=== PATIENT | female | born 1965 | race Caucasian/White ===

== ENCOUNTER 2017-04-06 14:37 | Emergency (ER) | payer SELFPAY ==
[~2017-04-06 14:37] MED LIST: ADVA100A INH; VENTAER INH
[2017-04-06 14:39] VITALS: BP 146/98; PULSE 86; RESP 15; TEMP 98.5; O2SAT 98
--- NOTE | 2017-04-06 14:55 | PD ---
HPI . Cold for over a week Chief Complaint: Cold / Flu Symptoms Time Seen by Provider: 14:55 Travel History International Travel<30 days: No Contact w/Intl Traveler<30days: No Traveled to known affect area: No History of Present Illness HPI 51-year-old female here with complaints of having a cold for over one week. She 's tried all of the [id number] remedies including Mucinex and they seem to not be working. She does report that she may have emphysema. She tells me she had a slight fever of 100 yesterday, however has been afebrile since. PFSH Past Medical History : 4 Para: 3 Miscarriage: 1 Past Surgical History Section: Yes Cholecystectomy: Yes Gynecologic Surgery: Yes (; TUBAL LIGATION,D&C) Social History Alcohol Use: Yes (OCC) Tobacco Use: Yes (1/2PPD) Substance Use: No Allergies-Medications (Allergen,Severity, Reaction): Coded Allergies: No Known Allergies (Verified , 06/27/11) Reported Meds & Prescriptions Reported Meds & Active Scripts Active Tessalon Perles (Benzonatate) 100 Mg Cap 100 Mg PO TID PRN 3 Days Zithromax Z-Gera (Azithromycin) 250 Mg Dspk 250 Mg PO DIRECTED 500 MG (2 tabs) day 1, then 1 tab days 2-5. Prednisone 50 Mg Tab 50 Mg PO DAILY 5 Days Ventolin Hfa 18 GM Inh (Albuterol Sulfate) 90 Mcg/Act Aer 2 Puff INH Q6H PRN Ventolin Hfa (Albuterol Sulfate) 18 Gm Aero 2 Puff INH Q4HPRN 30 Days * SHAKE WELL BEFORE USE * as needed for shortness of breath Reported Advair Diskus 100/50 (Salmeterol Xinafoate/Fluticasone) 100 Mcg/50 Mcg Inhp 1 Puff INH BID Review of Systems General / Constitutional: No: Fever Eyes: No: Visual changes HENT: No: Headaches Cardiovascular: No: Chest Pain or Discomfort Respiratory: Positive: Cough, Wheezing, No: Shortness of Breath Gastrointestinal: No: Abdominal Pain Genitourinary: No: Dysuria Musculoskeletal: No: Pain Skin: No Rash Neurologic: No: Weakness Psychiatric: No: Depression Endocrine: No: Polydipsia Hematologic/Lymphatic: No: Easy Bruising Physical Exam Narrative GENERAL: AAO x 3, no acute distress, Well-nourished, well-developed patient. SKIN: Warm and dry. No visible rashes or bruising. HEAD: Normocephalic and atraumatic. EYES: No scleral icterus. No injection or drainage. ENT: No nasal drainage noted. Mucous membranes pink. Airway patent. NECK: Supple, trachea midline. No JVD. CARDIOVASCULAR: Regular rate and rhythm without murmurs, gallops, or rubs. RESPIRATORY: Breath sounds equal bilaterally. rhonchi scattered/slight wheeze GASTROINTESTINAL: Abdomen soft, non-tender, nondistended. EXTREMITIES: No cyanosis or edema. BACK: No obvious deformity. NEURO: CN II-12 intact, PSYCH: AAO x 3, normal affect. Data Data Last Documented VS Vital Signs Date Time Temp Pulse Resp B/P (MAP) Pulse Ox O2 Delivery O2 Flow Rate FiO2 04/06/17 15:04 16 98 Room Air 04/06/17 14:39 98.5 86 146/98 (114) Orders Orders Chest, Single Ap (04/06/17 ) Albuterol-Ipratropium Neb (Duoneb Neb) (04/06/17 15:00) MDM Medical Decision Making Medical Screen Exam Complete: Yes Emergency Medical Condition: Yes Medical Record Reviewed: Yes Differential Diagnosis bronchitis, less likely pneumonia, less likely influenza Narrative Course 51 yr old female here with cold sxs x 2 weeks. Exam done. I believe she has bronchitis. I ordered CXR, but do not expect any gross abn. Last Impressions Chest X-Ray 04/06/17 0000 Signed Impressions: Service Date/Time: Thursday, April 06, 2017 15:20 - CONCLUSION: No acute disease. Yg Villalta MD FACR Chest x-ray unremarkable. I discussed with the patient. I will discharge her home with azithromycin, prednisone, albuterol inhaler and Tessalon Perles. I explained that she will need to follow-up with the primary care provider. Patient verbalized understanding of instructions, questions were answered, and thanked me for their care. I advised them if their condition worsens, please return to the nearest emergency room for further care. Diagnosis Primary Impression: Acute bronchitis Qualified Codes: J20.9 - Acute bronchitis, unspecified Patient Instructions: General Instructions Additional Instructions: As we discussed the cough can last 6-8 weeks. Take medications as prescribed. If you are a smoker, try to quit. Follow up with your primary care provider. If you develop sudden onset or worsening of shortness or breath, please go to the nearest emergency room. Please return to emergency department if your symptoms return or worsen. Follow up with your primary care provider. Take medications as prescribed. Med/Other Pt SpecificInfo: Prescription(s) given Scripts Benzonatate (Tessalon Perles) 100 Mg Cap 100 MG PO TID Y for COUGH for 3 Days, CAP 0 Refills Prov: Jose Washburn MD 04/06/17 Azithromycin (Zithromax Z-Gera) 250 Mg Dspk 250 MG PO DIRECTED for Infection, #1 DSPK 0 Refills 500 MG (2 tabs) day 1, then 1 tab days 2-5. Prov: Jose Washburn MD 04/06/17 Prednisone (Prednisone) 50 Mg Tab 50 MG PO DAILY for 5 Days, TAB 0 Refills Prov: Jose Washburn MD 04/06/17 Albuterol 18 GM Inh (Ventolin Hfa 18 GM Inh) 90 Mcg/Act Aer 2 PUFF INH Q6H Y for SHORTNESS OF BREATH, #1 INHALER 0 Refills Prov: Jose Washburn MD 04/06/17 Disposition: 01 DISCHARGE HOME Condition: Stable Eden Perez Apr 06, 2017 14:55
[2017-04-06] MEDS ORDERED: RESP: ALBUTEROL 2.5 MG/IPRATROPIUM 0.5 MG NEB (SCH) INH ONE (15:00)
--- NOTE | 2017-04-06 15:33 | RADRPT ---
EXAM DATE/TIME: 04/06/2017 15:20 [facility] COMPARISON: No previous studies available for comparison. INDICATIONS : Cough for one week. MEDICAL HISTORY : None. SURGICAL HISTORY : None. ENCOUNTER: Initial ACUITY: 1 week PAIN SCORE: 0/10 LOCATION: Bilateral chest FINDINGS: A single view of the chest demonstrates the lungs to be symmetrically aerated without evidence of mas s, infiltrate or effusion. The cardiomediastinal contours are unremarkable. Osseous structures are intact. CONCLUSION: No acute disease. Yg Villalta MD FACR on April 06, 2017 at 15:31 Board Certified Radiologist. This report was verified electronically.
[2017-04-06] MEDS ORDERED: VENTAER INH (15:50)
[2017-04-06] MEDS ORDERED: PRED50 PO (15:50)
[2017-04-06] MEDS ORDERED: BENZ100 PO (15:50)
[2017-04-06] MEDS ORDERED: ZITHTAB PO (15:50)
== END 2017-04-06 16:00 | disposition home or self-care (01) ==
LOC: NEPD 14:37
DX: J20.9 Acute bronchitis, unspecified (principal); F17.200 Nicotine dependence, unspecified, uncomplicated
CPT/HCPCS: 71010; 99284

== ENCOUNTER 2017-07-24 18:51 | Observation (INO) | payer SELFPAY ==
[~2017-07-24] VITALS: Ht 170.2 cm; Wt 52.3 kg
[~2017-07-24 18:51] MED LIST changes: +BENZ100 PO; +PRED50 PO; +ZITHTAB PO
[2017-07-24 18:54] VITALS: BP 177/115; PULSE 89; RESP 16; TEMP 98.7; O2SAT 95
[2017-07-24] MEDS ORDERED: TIOT12.9 INH (19:33)
[2017-07-24] MEDS ORDERED: TIOT1AER2 INH (19:33)
[2017-07-24] MEDS ORDERED: PRED5TAB PO (19:34)
[2017-07-24 19:35] VITALS: PULSE 65; RESP 18; TEMP 98.6; O2SAT 94
[2017-07-24] MEDS ORDERED: SODIUM CHLORIDE 0.9% FLUSH 10 ML FLUSH IV FLUSH PRN ×2 (19:45→23:00)
[2017-07-24 20:03] VITALS: O2SAT 95
[2017-07-24 20:11] LABS: AUTOMATED NEUTROPHIL # 4.2 TH/MM3 (1.8-7.7); BASOPHIL % 0.6 % (0.0-2.0); EOSINOPHIL # 0.2 TH/MM3 (0-0.4); EOSINOPHIL % 2.2 % (0.0-4.0); HEMATOCRIT 48.3 % (35.0-46.0); HEMOGLOBIN 16.4 GM/DL (11.6-15.3); LYMPH % 34.9 % (9.0-44.0); LYMPHOCYTE # 2.6 TH/MM3 (1.0-4.8); MEAN CELL VOLUME 90.2 FL (80.0-100.0); MEAN CORPUSCULAR HEMOGLOBIN 30.7 PG (27.0-34.0); MEAN PLATELET VOLUME 7.8 FL (7.0-11.0); MONO % 6.5 % (0.0-8.0); MONOCYTE # 0.5 TH/MM3 (0-0.9); NEUT % 55.8 % (16.0-70.0); PLATELET COUNT 226 TH/MM3 (150-450); RED BLOOD COUNT 5.36 MIL/MM3 (4.00-5.30); RED CELL DISTRIBUTION WIDTH 13.8 % (11.6-17.2); WHITE BLOOD COUNT 7.6 TH/MM3 (4.0-11.0)
[2017-07-24 20:15] LABS: BACTERIA, URINE RARE /hpf; BILIRUBIN, URINE NEG (NEG); BLOOD, URINE NEG (NEG); GLUCOSE,URINE NEG (NEG); HYALINE CAST, URINE 52 /lpf (RARE); KETONE, URINE NEG (NEG); MUCUS URINE FEW /lpf (OCC); NITRITE,URINE NEG (NEG); PH, URINE 5.5 (5.0-8.5); SQUAMOUS EPITHELIAL CELL URINE 8 /hpf (0-5); URINE COLOR YELLOW (YELLW/STRAW); URINE LEUKOCYTE ESTERASE SMALL (NEG)
[2017-07-24 20:31] LABS: ALBUMIN 3.9 GM/DL (3.4-5.0); AST (GOT) 15 U/L (15-37); BICARBONATE 29.5 MEQ/L (21.0-32.0); BLOOD UREA NITROGEN 9 MG/DL (7-18); CHLORIDE 102 MEQ/L (98-107); CREATININE 0.76 MG/DL (0.50-1.00); GLOMERULAR FILTRATION RATE 80 ML/MIN (>89); GLUCOSE,RANDOM 96 MG/DL (74-106); LIPASE 84 U/L (73-393); SODIUM (NA) 137 MEQ/L (136-145)
[2017-07-24 20:32] LABS: ALT (GPT) 19 U/L (10-53)
[2017-07-24 20:34] LABS: ALKALINE PHOSPHATASE 81 U/L (45-117); TOTAL BILIRUBIN ADULT 0.3 MG/DL (0.2-1.0); TOTAL PROTEIN 7.5 GM/DL (6.4-8.2)
--- NOTE | 2017-07-24 21:35 | PD ---
HPI Chief Complaint: GI Complaint Time Seen by Provider: 19:20 Travel History International Travel<30 days: No Contact w/Intl Traveler<30days: No Traveled to known affect area: No History of Present Illness HPI 52-year-old female presents emergency department for evaluation of dysphagia 2 days. Patient states she feels like there is something stuck in the lower portion of her throat that is preventing her from eating and swallowing food. Denies any difficulty breathing. Patient states the swelling in her throat is making her nauseous and she has vomited scant amount of bilious fluid a couple times. Patient denies any alleviating or exacerbating factors. Patient denies any abdominal pain. Patient states she feels dizzy and lightheaded from not being able to eat. Patient is currently half pack a day smoker. She has a history of emphysema. She takes prednisone daily. She denies any fever, chills , increased shortness of breath outside of her baseline or chest pain. Patient denies any dysuria or hematuria. PFSH Past Medical History COPD: Yes Respiratory: Yes (emphysema) ?: Not LMP: doesnt get anymore Menopausal: Yes : 4 Para: 3 Miscarriage: 1 Past Surgical History Section: Yes Cholecystectomy: Yes Gynecologic Surgery: Yes (; TUBAL LIGATION,D&C, ovarian cyst removed) Social History Alcohol Use: Yes (OCC) Tobacco Use: Yes (/4ppd) Substance Use: No Allergies-Medications (Allergen,Severity, Reaction): Coded Allergies: No Known Allergies (Verified Adverse Reaction, Unknown, 07/24/17) Reported Meds & Prescriptions Reported Meds & Active Scripts Active Reported Prednisone 5 Mg Tab 5 Mg PO DAILY Spiriva Respimat Inh (Tiotropium Inh) 1.25 Mcg/Act Aero 2 Puff INH DAILY 1.25 mcg = 1 inhalation Review of Systems Except as stated in HPI: all other systems reviewed are Neg Physical Exam Narrative GENERAL: Well-nourished, well-developed 52-year-old female in no acute distress. Nontoxic appearing. SKIN: Focused skin assessment warm/dry. HEAD: Atraumatic. Normocephalic. EYES: Pupils equal and round. No scleral icterus. No injection or drainage. ENT: No nasal bleeding or discharge. Mucous membranes pink and moist. No obvious throat or neck swelling. NECK: Trachea midline. No JVD. CARDIOVASCULAR: Regular rate and rhythm. No murmur appreciated. RESPIRATORY: No accessory muscle use. Clear to auscultation. Breath sounds equal bilaterally. GASTROINTESTINAL: Abdomen soft, non-tender, nondistended. Hepatic and splenic margins not palpable. MUSCULOSKELETAL: No obvious deformities. No clubbing. No cyanosis. No edema. NEUROLOGICAL: Awake and alert. No obvious cranial nerve deficits. Motor grossly within normal limits. Normal speech. PSYCHIATRIC: Appropriate mood and affect; insight and judgment normal. Data Data Last Documented VS Vital Signs Date Time Temp Pulse Resp B/P (MAP) Pulse Ox O2 Delivery O2 Flow Rate FiO2 07/24/17 20:03 95 Room Air 07/24/17 19:35 98.6 65 18 Orders Orders Complete Blood Count With Diff (07/24/17 19:39) Comprehensive Metabolic Panel (07/24/17 19:39) Lipase (07/24/17 19:39) Urinalysis - C+S If Indicated (07/24/17 19:39) Iv Access Insert/Monitor (07/24/17 19:39) Ecg Monitoring (07/24/17 19:39) Oximetry (07/24/17 19:39) Sodium Chloride 0.9% Flush (Ns Flush) (07/24/17 19:45) Electrocardiogram (07/24/17 19:39) Ct Soft Tiss Neck W/O Iv Cont (07/24/17 ) Ckmb (Isoenzyme) Profile (07/24/17 21:16) Troponin I (07/24/17 21:16) Admit Order (Ed Use Only) (07/24/17 22:56) Consult Ent (07/24/17 ) Labs Laboratory Tests Test 07/24/17 19:55 White Blood Count 7.6 TH/MM3 Red Blood Count 5.36 MIL/MM3 Hemoglobin 16.4 GM/DL Hematocrit 48.3 % Mean Corpuscular Volume 90.2 FL Mean Corpuscular Hemoglobin 30.7 PG Mean Corpuscular Hemoglobin Concent 34.0 % Red Cell Distribution Width 13.8 % Platelet Count 226 TH/MM3 Mean Platelet Volume 7.8 FL Neutrophils (%) (Auto) 55.8 % Lymphocytes (%) (Auto) 34.9 % Monocytes (%) (Auto) 6.5 % Eosinophils (%) (Auto) 2.2 % Basophils (%) (Auto) 0.6 % Neutrophils # (Auto) 4.2 TH/MM3 Lymphocytes # (Auto) 2.6 TH/MM3 Monocytes # (Auto) 0.5 TH/MM3 Eosinophils # (Auto) 0.2 TH/MM3 Basophils # (Auto) 0.0 TH/MM3 CBC Comment DIFF FINAL Differential Comment Urine Color YELLOW Urine Turbidity HAZY Urine pH 5.5 Urine Specific Burns 1.020 Urine Protein TRACE mg/dL Urine Glucose (UA) NEG mg/dL Urine Ketones NEG mg/dL Urine Occult Blood NEG Urine Nitrite NEG Urine Bilirubin NEG Urine Urobilinogen 2.0 MG/DL Urine Leukocyte Esterase SMALL Urine RBC 1 /hpf Urine WBC 5 /hpf Urine Squamous Epithelial Cells 8 /hpf Urine Bacteria RARE /hpf Urine Hyaline Casts 52 /lpf Urine Granular Casts 13 /lpf Urine Mucus FEW /lpf Microscopic Urinalysis Comment CULT NOT INDICATED Blood Urea Nitrogen 9 MG/DL Creatinine 0.76 MG/DL Random Glucose 96 MG/DL Total Protein 7.5 GM/DL Albumin 3.9 GM/DL Calcium Level 9.0 MG/DL Alkaline Phosphatase 81 U/L Aspartate Amino Transf (AST/SGOT) 15 U/L Alanine Aminotransferase (ALT/SGPT) 19 U/L Total Bilirubin 0.3 MG/DL Sodium Level 137 MEQ/L Potassium Level 3.8 MEQ/L Chloride Level 102 MEQ/L Carbon Dioxide Level 29.5 MEQ/L Anion Gap 6 MEQ/L Estimat Glomerular Filtration Rate 80 ML/MIN Total Creatine Kinase 79 U/L Troponin I LESS THAN 0.02 NG/ML Lipase 84 U/L MDM Medical Decision Making Medical Screen Exam Complete: Yes Emergency Medical Condition: Yes Differential Diagnosis Differential diagnoses include but not limited to foreign body in throat, mass/ malignancy in throat, nausea/vomiting, swollen glands, throat abscess Narrative Course IV obtained and blood work sent to the lab. CBC, CMP, lipase, troponin, CK-MB, UA ordered and pending. EKG ordered and pending. CT soft tissue neck ordered and pending. CBC showed mildly increased H&H with HBG 16.4 and HCT 48.3. CMP shows no acute abnormality. Trop negative at less than 0.02 and CK within normal limits at 79. UA shows no acute abnormality. Neck CT shows 12 mm hypodensity in the soft tissue adjacent to the left piriform sinus without evidence of mass effect or gas. Cannot exclude an abscess. Dr. Zuñiga, ENT on- call consult regarding this case. He recommends admitting the patient and consulting him to perform a biopsy and evaluation of the possible abscess tomorrow. Aleisha called for admission. Dr. Deleon accepted admission. Patient admitted the hospital this time. Diagnosis Primary Impression: Dysphagia Qualified Codes: R13.10 - Dysphagia, unspecified Admitting Information Admitting Physician Requests: Nuha Elder Jul 24, 2017 21:35
[2017-07-24 21:40] LABS: TROPONIN I LESS THAN 0.02 NG/ML (0.02-0.05)
--- NOTE | 2017-07-24 21:43 | RADRPT ---
EXAM DATE/TIME: 07/24/2017 21:12 [facility] COMPARISON: No previous studies available for comparison. INDICATIONS : Dysphagia. RADIATION DOSE: 16.97 CTDIvol (mGy) MEDICAL HISTORY : Chronic obstructive pulmonary disease. SURGICAL HISTORY : Tubal ligation. ENCOUNTER: Initial ACUITY: 1 week PAIN SCORE: 0/10 LOCATION: neck TECHNIQUE: Volumetric scanning of the neck was performed. Using automated exposure control and adjustment of th e mA and/or kV according to patient size, radiation dose was kept as low as reasonably achievable to obtain optimal diagnostic quality images. DICOM format image data is available electronically for re view and comparison. FINDINGS: There was extravasation of the administered contrast and this study was performed without contrast. Prevertebral soft tissue space is normal. The submandibular and parotid glands are symmetric and nor mal in size. There is a 12 mm hypodensity adjacent to the left piriform sinus which does not cause a contour asymmetry of the piriform sinus. Mean CT density is 3 Hounsfield units suggesting this coul d possibly represent an abscess. The thyroid is normal in appearance the supraclavicular region is i ntact. The osseous structures are intact. There is moderate centrilobular emphysema in the pulmonar y apices. CONCLUSION: 1. 12 mm hypodensity in the soft tissues adjacent to the left piriform sinus without evidence of mass effect or gas. Cannot exclude an abscess. 2. Moderate bilateral upper lung emphysema. Ibrahima Callahan MD on July 24, 2017 at 21:36 Board Certified Radiologist. This report was verified electronically.
[2017-07-24] MEDS ORDERED: LACTULOSE SYRUP 20 GM/30 ML CUP PO PRN (23:00)
[2017-07-24] MEDS ORDERED: SENNOSIDES 8.6 MG TAB PO PRN (23:00)
[2017-07-24] MEDS ORDERED: MAGNESIUM HYDROXIDE SUSP 30 ML CUP PO PRN (23:00)
[2017-07-24] MEDS ORDERED: BISACODYL 10 MG SUPP RECTAL PRN (23:00)
[2017-07-24] MEDS ORDERED: ACETAMINOPHEN 1000 MG/100 ML 100 ML IV PRN (23:00)
--- NOTE | 2017-07-24 23:01 | HHI.HP ---
HPI Service [facility] Hospitalists Primary Care Physician Jan Stinson M.D. Admission Diagnosis dysphagia, possible throat abscess Diagnoses: (1) Dysphagia Diagnosis: Principal (2) Neck mass Diagnosis: Principal (3) Dehydration Diagnosis: Principal (4) HTN (hypertension) Diagnosis: Principal (5) Tobacco abuse Diagnosis: Principal Travel History International Travel<30 Days: No Contact w/Intl Traveler <30 Da: No Traveled to Known Affected Are: No History of Present Illness This is a 52-year-old female with a PMH of COPD and Tobacco Abuse presented to the ER with complaints of dysphagia x2 days. States every time she swallows, she feels something "stuck in my throat". Reports dysphagia for both liquids and solids, decreased PO intake due to symptoms. No c/o fever, chills, sore throat or sick contacts. No h/o similar symptoms. On arrival, BP 177/115, HR 89, O2 sat 95% on RA, Afebrile. CBC essentially unremarkable except for hemoconcentration, hemoglobin 16.4. Chemistry essentially unremarkable. Troponin negative. UA negative. CT Neck with 12 mm hypodensity in soft tissue adjacent to left piriform sinus, cannot exclude abscess or mass. Dr. Robert consulted by ER physician, will evaluate in a.m. Review of Systems Except as stated in HPI: all other systems reviewed are Neg ROS: 14 point review of systems otherwise negative. Past Family Social History Past Medical History PMH: COPD and Tobacco Abuse Past Surgical History PAST SURGICAL HISTORY: Cholecystectomy, , Tubal Ligation, D&C Allergies: Coded Allergies: No Known Allergies (Verified Allergy, Unknown, 07/24/17) Family History PAST FAMILY HISTORY: Reviewed. No h/o DM or CAD Social History PAST SOCIAL HISTORY: Occasional alcohol. Positive for tobacco. Negative for drugs. Physical Exam Vital Signs Vital Signs Date Time Temp Pulse Resp B/P (MAP) Pulse Ox O2 Delivery O2 Flow Rate FiO2 07/24/17 20:03 95 Room Air 07/24/17 19:35 98.6 65 18 94 Room Air 07/24/17 18:54 98.7 89 16 177/115 (135) 95 Room Air Physical Exam PE: GENERAL: Middle-aged white female in no acute distress. HEENT: PERRLA, EOMI. No scleral icterus or conjunctival pallor. No lid lag or facial droop. No palpable neck mass. CARDIOVASCULAR: Regular rate and rhythm. No obvious murmurs to auscultation. No chest tenderness to palpation. RESPIRATORY: No obvious rhonchi or wheezing. Clear to auscultation. Breath sounds equal bilaterally. GASTROINTESTINAL: Abdomen soft, non-tender, nondistended. BS normal. MUSCULOSKELETAL: Extremities without clubbing, cyanosis, or edema. No obvious deformities. NEUROLOGICAL: Awake, alert and oriented x4. No focal neurologic deficits. Moving both upper and lower extremities spontaneously. Laboratory Laboratory Tests Test 07/24/17 19:55 White Blood Count 7.6 Red Blood Count 5.36 Hemoglobin 16.4 Hematocrit 48.3 Mean Corpuscular Volume 90.2 Mean Corpuscular Hemoglobin 30.7 Mean Corpuscular Hemoglobin Concent 34.0 Red Cell Distribution Width 13.8 Platelet Count 226 Mean Platelet Volume 7.8 Neutrophils (%) (Auto) 55.8 Lymphocytes (%) (Auto) 34.9 Monocytes (%) (Auto) 6.5 Eosinophils (%) (Auto) 2.2 Basophils (%) (Auto) 0.6 Neutrophils # (Auto) 4.2 Lymphocytes # (Auto) 2.6 Monocytes # (Auto) 0.5 Eosinophils # (Auto) 0.2 Basophils # (Auto) 0.0 CBC Comment DIFF FINAL Differential Comment Urine Color YELLOW Urine Turbidity HAZY Urine pH 5.5 Urine Specific [place] 1.020 Urine Protein TRACE Urine Glucose (UA) NEG Urine Ketones NEG Urine Occult Blood NEG Urine Nitrite NEG Urine Bilirubin NEG Urine Urobilinogen 2.0 Urine Leukocyte Esterase SMALL Urine RBC 1 Urine WBC 5 Urine Squamous Epithelial Cells 8 Urine Bacteria RARE Urine Hyaline Casts 52 Urine Granular Casts 13 Urine Mucus FEW Microscopic Urinalysis Comment CULT NOT INDICATED Blood Urea Nitrogen 9 Creatinine 0.76 Random Glucose 96 Total Protein 7.5 Albumin 3.9 Calcium Level 9.0 Alkaline Phosphatase 81 Aspartate Amino Transf (AST/SGOT) 15 Alanine Aminotransferase (ALT/SGPT) 19 Total Bilirubin 0.3 Sodium Level 137 Potassium Level 3.8 Chloride Level 102 Carbon Dioxide Level 29.5 Anion Gap 6 Estimat Glomerular Filtration Rate 80 Total Creatine Kinase 79 Troponin I LESS THAN 0.02 Lipase 84 Result Diagram: 07/24/17195407/24/171954 Caprini VTE Risk Assessment Caprini VTE Risk Assessment: No/Low Risk (score <= 1) Caprini Risk Assessment Model Point Value = 1 Point Value = 2 Point Value = 3 Point Value = 5 Age 41-60 Minor surgery BMI > 25 kg/m2 Swollen legs Varicose veins or History of unexplained or recurrent spontaneous Oral contraceptives or hormone replacement Sepsis (< 1 month) Serious lung disease, including pneumonia (< 1 month) Abnormal pulmonary function Acute myocardial infarction Congestive heart failure (< 1 month) History of inflammatory bowel disease Medical patient at bed rest Age 61-74 Arthroscopic surgery Major open surgery (> 45 min) Laparoscopic surgery (> 45 min) Malignancy Confined to bed (> 72 hours) Immobilizing plaster cast Central venous access Age >= 75 History of VTE Family history of VTE Factor V Leiden Prothrombin [id number] Lupus anticoagulant Anticardiolipin antibodies Elevated serum homocysteine Heparin-induced thrombocytopenia Other congenital or acquired thrombophilia Stroke (< 1 month) Elective arthroplasty Hip, pelvis, or leg fracture Acute spinal cord injury (< 1 month) Prophylaxis Regimen Total Risk Factor Score Risk Level Prophylaxis Regimen 0-1 Low Early ambulation 2 Moderate Order ONE of the following: *Sequential Compression Device (SCD) *Heparin 5000 units SQ BID 3-4 Higher Order ONE of the following medications: *Heparin 5000 units SQ TID *Enoxaparin/Lovenox 40 mg SQ daily (WT < 150 kg, CrCl > 30 mL/min) *Enoxaparin/Lovenox 30 mg SQ daily (WT < 150 kg, CrCl > 10-29 mL/min) *Enoxaparin/Lovenox 30 mg SQ BID (WT < 150 kg, CrCl > 30 mL/min) AND/OR *Sequential Compression Device (SCD) 5 or more Highest Order ONE of the following medications: *Heparin 5000 units SQ TID (Preferred with Epidurals) *Enoxaparin/Lovenox 40 mg SQ daily (WT < 150 kg, CrCl > 30 mL/min) *Enoxaparin/Lovenox 30 mg SQ daily (WT < 150 kg, CrCl > 10-29 mL/min) *Enoxaparin/Lovenox 30 mg SQ BID (WT < 150 kg, CrCl > 30 mL/min) AND *Sequential Compression Device (SCD) Assessment and Plan Problem List: (1) Dysphagia ICD Code: R13.10 - Dysphagia, unspecified Status: Acute (2) Neck mass ICD Code: R22.1 - Localized swelling, mass and lump, neck (3) Dehydration ICD Code: E86.0 - Dehydration (4) HTN (hypertension) ICD Code: I10 - Essential (primary) hypertension (5) Tobacco abuse ICD Code: Z72.0 - Tobacco use Assessment and Plan A/P: 1. Dysphagia: acute onset of dysphagia to liquids/solids x2 days, denies h/o similar symptoms, no fever/chills, no sore throat. NPO, IVF, analgesics as needed. 2. Neck Mass: CT Neck w/ 12mm hypodensity left piriform sinus, unable to exclude abscess/mass, images reviewed by me. Dr. Robert consulted by ER physician, will evaluate, likely biopsy, concern for malignancy. Hold antibiotics as afebrile, no leukocytosis, no evidence of infection. 3. Dehydration: GFR 80. IVF for hydration, repeat labs in am. 4. HTN: BP 170s on arrival, likely compounded by dysphagia/discomfort. BP currently 130/78, HR 62. Monitor BP. 5. Tobacco Abuse: Patient counseled. NicoDerm prn if needed. 6. DVT Prophylaxis: SCD/teds. 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 8. Case discussed at length with ER physician. Problem Qualifiers (1) Dysphagia: Qualified Codes: R13.10 - Dysphagia, unspecified Jada Deleon MD Jul 24, 2017 23:01
--- NOTE | 2017-07-24 23:19 | EKG ---
Date Performed: 07/24/2017 Time Performed: 20:29:49 PTAGE: 52 years EKG: SINUS BRADYCARDIA SEPTAL MYOCARDIAL INFARCTION BASELINE ARTIFACT ABNORMAL ECG NO PREVIOUS TRACING DOCTOR: Aristeo Velasquez Interpretating Date/Time 07/24/2017 23:18:49
[2017-07-24] MEDS ORDERED: MORPHINE SULFATE 2 MG/ML INJ IV PUSH PRN (23:30)
[2017-07-25] MEDS: SODIUM CHLOR 0.9% 1000 ML INJ 1,000 ML IV SCH ×3 (00:14→19:00)
[2017-07-25] MEDS: ONDANSETRON HCL 4 MG/2 ML VIAL IVP PRN ×3 (00:23→18:33)
[2017-07-25] MEDS: MORPHINE SULFATE 2 MG/ML INJ IV PUSH PRN ×4 (00:24→20:03)
[2017-07-25 00:50] VITALS: BP 130/78; PULSE 62; RESP 16; TEMP 97.7; O2SAT 91
[2017-07-25 04:36] VITALS: BP 110/69; PULSE 60; RESP 16; TEMP 97.8; O2SAT 93
[2017-07-25] MEDS ORDERED: DEXAMETHASONE SOD PHOS 20 MG/5 ML VIAL IV SCH (07:00)
[2017-07-25] MEDS: AMPICILLIN/SULBAC 3 GM/NS 100 ML IV SCH ×6 (08:00→23:44)
[2017-07-25 08:19] VITALS: BP 106/67; PULSE 66; RESP 18; TEMP 97.9; O2SAT 96
[2017-07-25] MEDS: DOCUSATE SODIUM 50 MG/SENNA 8.6 MG TAB PO SCH ×2 (08:39→21:00)
[2017-07-25] MEDS: SODIUM CHLORIDE 0.9% FLUSH 10 ML FLUSH IV FLUSH SCH ×2 (08:39→21:00)
--- NOTE | 2017-07-25 10:35 | RADRPT ---
EXAM DATE/TIME: 07/25/2017 10:13 [facility] COMPARISON: CT SOFT TISSUE NECK W/O CONTRAST, July 24, 2017, 21:12. INDICATIONS : Difficulty swallowing and vomiting. FLUORO TIME: 1.7 minutes IMAGE COUNT: 10 CONTRAST: 1. Liquid E-Z Paque Barium Sulfate (60% w/v, 41% w.w) MEDICAL HISTORY : Emphysema. SURGICAL HISTORY : None. ENCOUNTER: Initial ACUITY: 4 - 6 days PAIN SCORE: 7/10 LOCATION: Esophagus FINDINGS: \Multiple serial films of the cervical esophagus were obtained to evaluate the finding in the left to nsillar pillar performed sinus. This is not visualized by barium swallow. Distal esophagus appears normal. Direct visualization suggested. CONCLUSION: Negative barium swallow. Please see above discussion. Yg Villalta MD FACR on July 25, 2017 at 10:31 Board Certified Radiologist. This report was verified electronically.
--- NOTE | 2017-07-25 11:57 | HHI.PR ---
Subjective Remarks Follow-up on patient with dysphagia. Patient seen and examined. She denies any new medical complaints. She denies any fever, chills or sore throat. She denies any chest pain or shortness of breath. She denies any nausea, vomiting or abdominal pain. She's had an 11 pound weight loss in the last month. She states for the past 3 weeks she's had progressive difficulty swallowing solids worse in the last 3 days and is now having difficulty with liquids as well. She was seen earlier by Dr. Zuñiga (no note in the system yet) and ppr he attempted scope but unable to reach area of concern, he will come back at 1600 to perform biopsy. Objective Vitals Vital Signs Date Time Temp Pulse Resp B/P (MAP) Pulse Ox O2 Delivery O2 Flow Rate FiO2 07/25/17 10:08 18 07/25/17 08:19 97.9 66 18 106/67 (80) 96 07/25/17 04:36 97.8 60 16 110/69 (83) 93 07/25/17 00:50 97.7 62 16 130/78 (95) 91 07/24/17 20:03 95 Room Air 07/24/17 19:35 98.6 65 18 94 Room Air 07/24/17 18:54 98.7 89 16 177/115 (135) 95 Room Air I/O 07/24/17 07/24/17 07/24/17 07/25/17 07/25/17 07/25/17 07:00 15:00 23:00 07:00 15:00 23:00 Intake Total 1000 ml Balance 1000 ml Intake IV Total 1000 ml Result Diagram: 07/24/17195407/24/171954 Imaging Last Impressions Barium Swallow X-Ray 07/25/17 0000 Signed Impressions: Service Date/Time: Tuesday, July 25, 2017 10:13 - CONCLUSION: Negative barium swallow. Please see above discussion. Yg Villalta MD FACR Neck CT 07/24/17 0000 Signed Impressions: Service Date/Time: July 21:12 - CONCLUSION: 1. 12 mm hypodensity in the soft tissues adjacent to the left piriform sinus without evidence of mass effect or gas. Cannot exclude an abscess. 2. Moderate bilateral upper lung emphysema. Ibrahima Callahan MD Objective Remarks GENERAL: Thin, middle-aged female patient in NAD. Awake and alert. Sitting up in hospital bed. SKIN: Warm and dry. No rash. HEAD: Normocephalic. Atraumatic. EYES: EOMI. No scleral icterus. No injection or drainage. ENT: No nasal bleeding or discharge. Mucous membranes pink and moist. NECK: Trachea midline. CARDIOVASCULAR: Regular rate and rhythm. S1, S2 noted. No murmur appreciated. RESPIRATORY: Nonlabored. Fair air entry. Clear to auscultation. Breath sounds equal bilaterally. GASTROINTESTINAL: Abdomen soft, non-tender, nondistended. Normoactive bowel sounds x4. MUSCULOSKELETAL: No obvious deformities. Extremities without clubbing, cyanosis , or edema. NEUROLOGICAL: Awake and alert. Able to move all extremities spontaneously. No focal neurologic findings appreciated.. Normal speech. PSYCHIATRIC: Appropriate mood and affect; insight and judgment normal. Medications and IVs Current Medications Medications (Trade) Dose Ordered Sig/Marie Route Start Time Stop Time Status Last Admin Sodium Chloride 1,000 ml @ 100 mls/hr Q10H IV 07/24/17 23:00 07/25/17 08:39 (NS Flush) 2 ml UNSCH PRN IV FLUSH 07/24/17 23:00 (NS Flush) 2 ml BID IV FLUSH 07/25/17 09:00 (Zofran Inj) 4 mg Q6H PRN IVP 07/24/17 23:00 07/25/17 08:40 (Morphine Inj) 1 mg Q3H PRN IV PUSH 07/24/17 23:30 (Morphine Inj) 2 mg Q3H PRN IV PUSH 07/24/17 23:00 07/25/17 08:42 Acetaminophen 100 ml @ 400 mls/hr Q6H PRN IV 07/24/17 23:00 (Sole-Colace) 1 tab BID PO 07/25/17 09:00 (Milk Of Magnesia Liq) 30 ml Q12H PRN PO 07/24/17 23:00 (Senokot) 17.2 mg Q12H PRN PO 07/24/17 23:00 (Dulcolax Supp) 10 mg DAILY PRN RECTAL 07/24/17 23:00 (Lactulose Liq) 30 ml DAILY PRN PO 07/24/17 23:00 Ampicillin Sodium/ Sulbactam Sodium 3 gm/Sodium Chloride 100 ml @ 200 mls/hr Q8H IV 07/25/17 08:00 07/25/17 08:00 (Habitrol 14 Mg Patch.24 Hr) 1 patch DAILY T-DERMAL 07/26/17 09:00 Miscellaneous Information 1 DAILY T-DERMAL 07/26/17 09:00 A/P Problem List: (1) Dysphagia ICD Code: R13.10 - Dysphagia, unspecified Status: Acute (2) Neck mass ICD Code: R22.1 - Localized swelling, mass and lump, neck (3) Dehydration ICD Code: E86.0 - Dehydration (4) HTN (hypertension) ICD Code: I10 - Essential (primary) hypertension (5) Tobacco abuse ICD Code: Z72.0 - Tobacco use Assessment and Plan A/P: 1. Dysphagia: acute onset of dysphagia to liquids/solids x2 days, denies h/o similar symptoms, no fever/chills, no sore throat. NPO, IVF, analgesics as needed. Barium swallow completed, negative study. 2. Neck Mass: CT Neck w/ 12mm hypodensity left piriform sinus, unable to exclude abscess/mass. Dr. Robert consulted by ER physician, will evaluate, likely biopsy later today, concern for malignancy. Keep patient NPO for now. Started on Unasyn and IV Decadron. 3. Dehydration: GFR 80. IVF for hydration, repeat labs in am/pending. 4. HTN: BP 170s on arrival, likely compounded by dysphagia/discomfort. Currently normotensive. Continue to monitor BP. 5. Tobacco Abuse: Patient counseled on smoking cessation. NicoDerm ordered. 6. DVT Prophylaxis: SCD/teds. 7. workers compensation claims supervisor for DC planning as needed. Problem Qualifiers (1) Dysphagia: Qualified Codes: R13.10 - Dysphagia, unspecified Amee Qureshi Jul 25, 2017 11:57
[2017-07-25 12:30] VITALS: BP 101/52; PULSE 55; RESP 18; TEMP 97.9; O2SAT 95
[2017-07-25 12:48] LABS: BASOPHIL % 0.3 % (0.0-2.0); EOSINOPHIL % 0.6 % (0.0-4.0); HEMATOCRIT 43.2 % (35.0-46.0); HEMOGLOBIN 14.9 GM/DL (11.6-15.3); LYMPH % 11.7 % (9.0-44.0); LYMPHOCYTE # 0.8 TH/MM3 (1.0-4.8); MEAN CELL VOLUME 92.5 FL (80.0-100.0); MEAN CORPUSCULAR HGB CONC 34.6 % (32.0-36.0); MEAN PLATELET VOLUME 8.5 FL (7.0-11.0); MONO % 0.8 % (0.0-8.0); MONOCYTE # 0.1 TH/MM3 (0-0.9); NEUT % 86.6 % (16.0-70.0); PLATELET COUNT 201 TH/MM3 (150-450); RED BLOOD COUNT 4.68 MIL/MM3 (4.00-5.30); RED CELL DISTRIBUTION WIDTH 13.6 % (11.6-17.2); WHITE BLOOD COUNT 6.9 TH/MM3 (4.0-11.0)
[2017-07-25 13:06] LABS: ALBUMIN 3.7 GM/DL (3.4-5.0); ALT (GPT) 16 U/L (10-53); AST (GOT) 14 U/L (15-37); BICARBONATE 23.9 MEQ/L (21.0-32.0); BLOOD UREA NITROGEN 13 MG/DL (7-18); CALCIUM 8.7 MG/DL (8.5-10.1); CHLORIDE 108 MEQ/L (98-107); GLOMERULAR FILTRATION RATE 105 ML/MIN (>89); GLUCOSE,RANDOM 90 MG/DL (74-106); SODIUM (NA) 139 MEQ/L (136-145)
[2017-07-25 13:08] LABS: ALKALINE PHOSPHATASE 74 U/L (45-117); TOTAL BILIRUBIN ADULT 0.4 MG/DL (0.2-1.0); TOTAL PROTEIN 6.8 GM/DL (6.4-8.2)
--- NOTE | 2017-07-25 14:38 | MB ---
cc: ROBIN LIVINGSTON M.D. DATE OF CONSULTATION July 25, [address] Deleon REASON FOR ENT CONSULTATION Dysphagia. HISTORY OF PRESENT ILLNESS Desirae Bolanos is a healthy-appearing 52-year-old woman who presented to the emergency room early in the evening on July 24 complaining of a two-day history of progressive pain in her hypopharynx causing dysphagia and restricting her food intake. She states she can handle liquids with some difficulty but cannot swallow food. She has been afebrile. She denies airway compromise or changes of her voice and she denies hemoptysis. She also notes nausea and vomiting which is very painful for her throat when she vomits. She states she feels as if there is something there in her throat and when she swallows it feels like it moves or may come up from her throat. A CT scan was obtained which showed a fairly subtle area in the left posterior hypopharyngeal wall around the level of the epiglottis. There is no compromise of the lumen. There is no sign of neoplastic lesion. ALLERGIES She has no known drug allergies. SOCIAL HISTORY She lives with her daughter and granddaughter. She recently quit smoking a few months ago. Denies alcohol intake. PAST MEDICAL HISTORY Medical history includes emphysema and tobacco use. PAST SURGICAL HISTORY 1. Cholecystectomy. 2. . 3. Tubal ligation. PHYSICAL EXAMINATION GENERAL: She is alert and cooperative. VITAL SIGNS: Temperature 98.6, pulse 90, respirations 18, pulse oximetry 95% on room air. HEAD: Normocephalic and atraumatic. Face is normal. ORAL CAVITY: Teeth in good condition. Tongue and mandible normal. There is no evidence of inflammation or lesions of the floor of mouth or hypopharynx. NECK: No nodes or masses. No tenderness. Has full range of motion. Flexible fiberoptic laryngoscopy shows bilateral nasal septal deviation with minimal airway patency. The nasopharynx is normal. Eustachian tube ostia are normal. Hypopharynx - There is no obvious explanation of her symptoms. There is no sign of erythema and no neoplastic lesions noted. No asymmetry of the hypopharyngeal beckett. There is some pooling and secretions in the esophageal inlet and in the pyriform sinuses. The endolarynx is normal. LABORATORY Her white count on admission was 7.6 ASSESSMENT Pharyngeal pain. PLAN Discussed these findings with the patient and advised her there is no apparent cause of her subjective symptoms. The differential diagnosis includes infection or neoplasm and neither of these are readily apparent on her examination. We will go ahead and begin her on Unasyn 3 grams every 8 hours empirically and will give her Decadron 10 mg IV push. We will order a barium swallow and I will check with her later on to see how she is doing. Is she does not improve, she may need examination under anesthesia in the operating room to fully evaluate her hypopharynx and cervical and thoracic esophagus. MD DL Caro/DOREEN /7:24 AM /2:04 PM
[2017-07-25 15:40] VITALS: BP 110/50; PULSE 68; RESP 20; TEMP 98.2; O2SAT 96
[2017-07-25] MEDS ORDERED: DO NOT ADM ANY ANTICOAGULANT DRUGS PRN (17:10)
[2017-07-25] MEDS: LACTATED RINGER'S 1000 ML INJ 1,000 ML IV SCH (18:40)
[2017-07-25 19:46] VITALS: BP 119/63; PULSE 85; RESP 18; TEMP 98.1; O2SAT 93
[2017-07-25] MEDS ORDERED: AMPICILLIN/SULBAC 3 GM/NS 100 ML IV SCH ×2 (20:00)
[2017-07-26 00:19] VITALS: BP 110/60; PULSE 63; RESP 18; TEMP 98.8; O2SAT 92
[2017-07-26] MEDS: MORPHINE SULFATE 2 MG/ML INJ IV PUSH PRN (01:14)
[2017-07-26] MEDS: ONDANSETRON HCL 4 MG/2 ML VIAL IVP PRN (01:14)
[2017-07-26 03:33] VITALS: BP 95/54; PULSE 56; RESP 18; TEMP 98.4; O2SAT 97
[2017-07-26] MEDS: SODIUM CHLOR 0.9% 1000 ML INJ 1,000 ML IV SCH (04:56)
[2017-07-26] MEDS: DOCUSATE SODIUM 50 MG/SENNA 8.6 MG TAB PO SCH (05:27)
[2017-07-26] MEDS: LACTATED RINGER'S 1000 ML INJ 1,000 ML IV SCH (05:29)
[2017-07-26 07:23] VITALS: BP 116/67; PULSE 56; RESP 18; TEMP 98.2; O2SAT 97
[2017-07-26] MEDS: AMPICILLIN/SULBAC 3 GM/NS 100 ML IV SCH ×2 (08:00)
--- NOTE | 2017-07-26 08:22 | HHI.PR ---
Subjective Remarks Follow-up on patient with dysphagia. Patient seen and examined. Patient taken to the OR late yesterday by Dr. Zuñiga. Discussed findings with Dr. Zuñiga which were negative. He recommends discharge to home on Gatorade and Tylenol and follow-up in his office next . She reports some throat sensitivity. She is tolerating clears without any difficulty. She reports intermittent nausea and epigastric pain which seems to worsen after eating certain foods. She has been taking NSAIDS 3 times a day for the past several weeks to help with headache pain. Strongly suspect gastritis or ulcer. Patient denies any evidence of bleeding. Strongly advised again on smoking cessation. Discussed with patient antireflux measures and will start on proton pump inhibitor. Recommended patient follow-up with classification counselor as an outpatient. She denies any other complaints. No fever or chills. No chest pain or shortness of breath. She denies any nausea, vomiting or abdominal pain. Objective Vitals Vital Signs Date Time Temp Pulse Resp B/P (MAP) Pulse Ox O2 Delivery O2 Flow Rate FiO2 07/26/17 07:23 98.2 56 18 116/67 (83) 97 07/26/17 03:33 98.4 56 18 95/54 (68) 97 07/26/17 00:19 98.8 63 18 110/60 (77) 92 07/25/17 19:46 98.1 85 18 119/63 (81) 93 07/25/17 17:45 97.7 77 20 116/72 (87) 95 Nasal Cannula 2 07/25/17 17:30 82 17 117/72 (87) 94 Nasal Cannula 2 07/25/17 17:11 97.7 93 19 123/80 (94) 97 Nasal Cannula 2 07/25/17 15:40 98.2 68 20 110/50 (70) 96 07/25/17 12:30 97.9 55 18 101/52 (68) 95 07/25/17 10:08 18 I/O 07/25/17 07/25/17 07/25/17 07/26/17 07/26/17 07/26/17 07:00 15:00 23:00 07:00 15:00 23:00 Intake Total 1000 ml 500 ml Balance 1000 ml 500 ml Intake IV Total 1000 ml Other 500 ml Result Diagram: 07/25/17 1210 07/25/17 1210 Imaging Last Impressions Barium Swallow X-Ray 07/25/17 0000 Signed Impressions: Service Date/Time: Tuesday, July 25, 2017 10:13 - CONCLUSION: Negative barium swallow. Please see above discussion. Yg Villalta MD FACR Neck CT 07/24/17 0000 Signed Impressions: Service Date/Time: July 21:12 - CONCLUSION: 1. 12 mm hypodensity in the soft tissues adjacent to the left piriform sinus without evidence of mass effect or gas. Cannot exclude an abscess. 2. Moderate bilateral upper lung emphysema. Ibrahima Callahan MD Objective Remarks GENERAL: Thin, middle-aged female patient in NAD. Awake and alert. Sitting up in hospital bed. Appears comfortable. SKIN: Warm and dry. No rash. HEAD: Normocephalic. Atraumatic. EYES: EOMI. No scleral icterus. No injection or drainage. ENT: No nasal bleeding or discharge. Mucous membranes pink and moist. NECK: Trachea midline. CARDIOVASCULAR: Regular rate and rhythm. S1, S2 noted. No murmur appreciated. RESPIRATORY: Nonlabored. Fair air entry. Clear to auscultation. Breath sounds equal bilaterally. GASTROINTESTINAL: Abdomen soft, non-tender, nondistended. Normoactive bowel sounds x4. MUSCULOSKELETAL: No obvious deformities. Extremities without clubbing, cyanosis , or edema. NEUROLOGICAL: Awake and alert. Able to move all extremities spontaneously. No focal neurologic findings appreciated.. Normal speech. PSYCHIATRIC: Appropriate mood and affect; insight and judgment normal. Medications and IVs Current Medications Medications (Trade) Dose Ordered Sig/Marie Route Start Time Stop Time Status Last Admin Sodium Chloride 1,000 ml @ 100 mls/hr Q10H IV 07/24/17 23:00 07/25/17 08:39 (NS Flush) 2 ml UNSCH PRN IV FLUSH 07/24/17 23:00 (NS Flush) 2 ml BID IV FLUSH 07/25/17 09:00 (Zofran Inj) 4 mg Q6H PRN IVP 07/24/17 23:00 07/26/17 01:14 (Morphine Inj) 1 mg Q3H PRN IV PUSH 07/24/17 23:30 07/26/17 05:24 (Morphine Inj) 2 mg Q3H PRN IV PUSH 07/24/17 23:00 07/26/17 01:14 Acetaminophen 100 ml @ 400 mls/hr Q6H PRN IV 07/24/17 23:00 (Sole-Colace) 1 tab BID PO 07/25/17 09:00 07/26/17 05:27 (Milk Of Magnesia Liq) 30 ml Q12H PRN PO 07/24/17 23:00 (Senokot) 17.2 mg Q12H PRN PO 07/24/17 23:00 (Dulcolax Supp) 10 mg DAILY PRN RECTAL 07/24/17 23:00 (Lactulose Liq) 30 ml DAILY PRN PO 07/24/17 23:00 (Habitrol 14 Mg Patch.24 Hr) 1 patch DAILY T-DERMAL 07/26/17 09:00 Miscellaneous Information 1 DAILY T-DERMAL 07/26/17 09:00 Miscellaneous Information ALL NURSING DEPARTME... UNSCH PRN .XX 07/25/17 17:10 07/26/17 17:09 Lactated Ringer's 1,000 ml @ 80 mls/hr [id number] IV 07/25/17 18:45 07/26/17 05:29 Ampicillin Sodium/ Sulbactam Sodium 3 gm/Sodium Chloride 100 ml @ 200 mls/hr Q8H IV 07/26/17 00:00 07/25/17 23:44 A/P Problem List: (1) Dysphagia ICD Code: R13.10 - Dysphagia, unspecified Status: Acute (2) Neck mass ICD Code: R22.1 - Localized swelling, mass and lump, neck (3) Dehydration ICD Code: E86.0 - Dehydration (4) HTN (hypertension) ICD Code: I10 - Essential (primary) hypertension (5) Tobacco abuse ICD Code: Z72.0 - Tobacco use Assessment and Plan A/P: 1. Dysphagia: acute onset of dysphagia to liquids/solids x2 days, denies h/o similar symptoms, no fever/chills, no sore throat. Barium swallow completed, negative study. Improved. 2. Neck Mass: CT Neck w/ 12mm hypodensity left piriform sinus, unable to exclude abscess/mass. Dr. Robert s/p laryngoscopy and esophagoscopy yesterday with no significant findings, questionable somatization. Recommended discharge on Tylenol and Gatorade. Follow-up in his office next . 3. Dehydration: GFR 80. Improved status post IV fluid hydration. 4. HTN: BP 170s on arrival, likely compounded by dysphagia/discomfort. Resolved, patient has remained normotensive. 5. Tobacco Abuse: Patient counseled extensively on smoking cessation. NicoDerm ordered. 6. Suspect gastritis/ulcer: Patient has been taking NSAIDs multiple times per day for the past several weeks for headache pain. She reports intermittent nausea and epigastric pain. Additionally patient smokes and drinks coffee. Discussed with patient antireflux measures. No evidence of bleeding. Started on PPI. Recommend patient follow up with classification counselor as outpatient. 7. DVT Prophylaxis: SCD/teds. Discharge patient to home Condition on discharge: Improved Mechanical soft Diet as tolerated, advance as tolerated Ad Steffanie activity Rx written: Pantoprazole 40 mg daily. OTC Tylenol and Gatorade. Follow-up with primary care physician, Dr. Zuñiga next , 07/31/17 per his instructions, classification counselor for suspected gastritis and issuing operator for well woman exam Problem Qualifiers (1) Dysphagia: Qualified Codes: R13.10 - Dysphagia, unspecified Amee Qureshi Jul 26, 2017 08:22
--- NOTE | 2017-07-26 08:30 | HHI.DCPOC ---
Discharge Care Plan Diagnosis: (1) Dysphagia (2) Dehydration (3) Tobacco abuse (4) Neck mass (5) Gastritis Goals to Promote Your Health * To prevent worsening of your condition and complications * To maintain your health at the optimal level Directions to Meet Your Goals These keep your scheduled appointment with Dr. Zuñiga next 07/31/17 per his instructions Strongly advise you to stop smoking Recommend discontinuation of all nonsteroidal anti-inflammatory products to include aspirin, Aleve, ibuprofen, Motrin, Goody's powders, etc. Avoid spicy, citrus foods, caffeine, peppermint, stop smoking, do not lie flat for 2 hours after eating Please follow up with your regular primary physician Recommend follow-up with a tire service technician as outpatient Recommend follow-up with a regrinder operator for well woman exam Take your medications as prescribed Follow your dietary instruction Follow activity as directed Keep your appointments as scheduled Take your immunizations and boosters as scheduled If your symptoms worsen call your PCP, if no PCP go to Urgent Care Center or Emergency Room Smoking is Dangerous to Your Health. Avoid second hand smoke Call the 24-hour hour crisis hotline for domestic abuse at Amee Qureshi Jul 26, 2017 08:30
[2017-07-26] MEDS ORDERED: NICO14DI23 T-DERMAL (08:35)
[2017-07-26] MEDS ORDERED: PANT40TA3 PO (08:35)
[2017-07-26] MEDS: SODIUM CHLORIDE 0.9% FLUSH 10 ML FLUSH IV FLUSH SCH (08:52)
[2017-07-26] MEDS ORDERED: NICOTINE 14 MG/24 HR PATCH T-DERMAL SCH (09:00)
[2017-07-26] MEDS ORDERED: PANTOPRAZOLE SOD 40 MG DELAYED RELEASE TAB PO SCH (09:00)
[2017-07-26] MEDS ORDERED: REMOVE OLD PATCH T-DERMAL SCH (09:00)
--- NOTE | 2017-07-27 16:56 | MP ---
cc: ROBIN ZUÑIGA M.D. DATE OF SURGERY: 07/25/2017. PREOPERATIVE DIAGNOSIS: 1. Dysphagia. 2. Odynophagia. POSTOPERATIVE DIAGNOSIS: 1. Dysphagia. 2. Odynophagia. OPERATIVE PROCEDURE PERFORMED: 1. Direct laryngoscopy. 2. Esophagoscopy. SURGEON: Robin Zuñiga MD. INDICATIONS FOR THE PROCEDURE: Documented in the inpatient consultation of July 25, 2017. OPERATIVE FINDINGS: There is no evidence of lesions involving the hypopharynx or endolarynx. There may have been stricture or prominent cricopharyngeus muscle in the superior cervical esophagus but no evidence of mucosal lesions throughout the aerodigestive tract. There is no sign of inflammation or infection in the base of tongue, vallecula and pyriform sinuses, endolarynx, hypopharynx or cervical esophagus DESCRIPTION OF THE PROCEDURE IN DETAIL: The patient was taken to OR #8 and placed in the supine position. following induction of general anesthesia and intubation using a 6.0 endotracheal tube, a shoulder roll and a Hay head drape and dental guard were put in place. Using a Jayco scope, the hypopharynx and larynx were brought into view. The above-noted observations were made. This was then switched to an anterior commissure scope and this was then advanced into the postcricoid area and the larynx was elevated anteriorly and exposed the entrance into the esophagus. This appeared normal with the exception of a circular indentation of the posterior wall approximately 2 cm below the arytenoids. The mucosa was normal in this location. There was no violation of the membranes. No sign of inflammation or neoplastic changes. The scope was then removed. The hypopharynx was then palpated bimanually. There was no evidence of lesions involving the lateral beckett or the posterior beckett. The dental guards were then removed and the procedure was terminated. The patient was reversed from anesthesia and taken to recovery in good condition. There were no complications. Blood loss was less than 5 mL. MD DL Caro/LOLY /4:52 PM /4:33 PM
== END 2017-07-26 10:12 | disposition home or self-care (01) ==
LOC: NEPC 18:51 → NEDA 23:00 → NEPGCP 07-25 00:09
PROVIDERS: ADMIT Family Medicine; ATTEND Family Medicine
DX: R13.10 Dysphagia, unspecified (principal); J39.2 Other diseases of pharynx; R22.1 Localized swelling, mass and lump, neck; E86.0 Dehydration; I10 Essential (primary) hypertension; K29.70 Gastritis, unspecified, without bleeding; R11.2 Nausea with vomiting, unspecified; J43.9 Emphysema, unspecified; F17.210 Nicotine dependence, cigarettes, uncomplicated
CPT/HCPCS: 00320; 31525; 70490; 74230; 80053; 81001; 82550; 83690; 84484; 85025; 93005; 96361; 96365; 96366; 96375; 96376; 99285; G0378; J0295; J1100; J2270; J2405; J7030; J7120

== ENCOUNTER 2018-08-03 15:23 | Inpatient (IN) ==
[2018-08-03] MEDS ORDERED: MethylPREDNISolone Sod Succinate Inj 125 MG/2 ML Vial IV.PUSH ONE ×2 (15:37→18:44)
[2018-08-03 16:06] LABS: Baso # (Auto) 0.1 th/mm3 (0.0-0.2); Baso % (Auto) 0.8 % (0.0-2.0); Eos # (Auto) 0.1 th/mm3 (0.0-0.4); Eos % (Auto) 1.8 % (0.0-4.0); Hematocrit 55.7 % (35.0-46.0); Hemoglobin 18.8 gm/dL (11.6-15.3); Lymph # (Auto) 2.3 th/mm3 (1.0-4.8); Lymph % (Auto) 28.3 % (9.0-44.0); Mean Corpuscular HGB Conc 33.7 % (32.0-36.0); Mean Corpuscular Hemoglobin 31.8 pg (27.0-34.0); Mean Corpuscular Volume 94.4 fL (80.0-100.0); Mean Platelet Volume 8.6 fL (7.0-11.0); Mono # (Auto) 0.5 th/mm3 (0.0-0.9); Mono % (Auto) 6.4 % (0.0-8.0); Neut % (Auto) 62.7 % (16.0-70.0); Platelet Count 223 th/mm3 (150-450); Red Cell Distribution Width 14.8 % (11.6-17.2)
[2018-08-03 16:23] LABS: Activated Partial Thrombo Time 24.2 sec (23.4-31.7); Prothrombin Time 9.7 sec (9.8-11.6)
[2018-08-03 16:36] LABS: Alkaline Phosphatase 117 U/L (45-117); Total Protein 8.2 g/dL (6.4-8.2)
[2018-08-03 16:37] LABS: Alanine Aminotransferase 28 U/L (10-53); Albumin 3.9 g/dL (3.4-5.0); Anion Gap 4 meq/L (5-15); Aspartate Aminotransferase 39 U/L (15-37); Blood Urea Nitrogen 6 mg/dL (7-18); Calcium 9.3 mg/dL (8.5-10.1); Carbon Dioxide 32.4 meq/L (21.0-32.0); Chloride 101 meq/L (98-107); Glomerular Filtration Rate 81 mL/min (>89); Glucose,Random 91 mg/dL (74-106); Potassium 5.1 meq/L (3.5-5.1); Sodium 137 meq/L (136-145)
--- NOTE | 2018-08-03 16:38 | CT ---
EXAM DATE: 08/03/2018 4:29 PM EST AGE/SEX: 53 years / Female INDICATIONS: Shortness of breath. CLINICAL DATA: This is the patient's initial encounter. Patient reports that signs and symptoms have been present for 1 day and indicates a pain score of 3/10. MEDICAL/SURGICAL HISTORY: None. None. RADIATION DOSE: 4.41 CTDI (mGy) [place] [facility] [place]. . TECHNIQUE: Volumetric scanning was performed using a multi-row detector CT scanner during bolus infu alesia of 60 ml Omnipaque 350 (iohexol) nonionic water-soluble contrast as a single exam dose. The monalisa a was post processed with a variety of visualization algorithms including full volume maximum intensi ty projection and sliding thin slab reformation. Using automated exposure control and adjustment of t he mA and/or kV according to patient size, radiation dose was kept as low as reasonably achievable to obtain optimal diagnostic quality images. DICOM format image data is available electronically for r eview and comparison. FINDINGS: Pulmonary Arteries: No filling defects are seen in the pulmonary arteries out to the subsegmental ve ssels. The left and right pulmonary arteries are normal in diameter. Lung: Severe emphysematous disease is present throughout the lungs. A large pneumatoceles identified in the left midlung. There is no evidence of acute airspace disease. There are no suspicious nodular densities. Effusion: None. Mediastinum: No evidence of mediastinal or hilar adenopathy. Other: The axilla is unremarkable. CONCLUSION: 1. This study is negative for pulmonary embolism. 2. Severe emphysematous COPD 3. No evidence of acute airspace disease or suspicious nodular densities. Electronically signed by: Samir Galloway MD Board Certified Radiologist 08/03/2018 4:37 PM EST
--- NOTE | 2018-08-03 16:39 | XR ---
EXAM DATE: 08/03/2018 4:34 PM EST AGE/SEX: 53 years / Female INDICATIONS: Chest pain CLINICAL DATA: This is the patient's initial encounter. Patient reports that signs and symptoms have been present for 1 day and indicates a pain score of 6/10. MEDICAL/SURGICAL HISTORY: . 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 . FINDINGS: Lungs are hyperinflated. There is no evidence of acute airspace disease. There are no suspicious nodu lar densities or effusions. Heart and mediastinal structures are unremarkable. CONCLUSION: COPD No evidence of acute process. Electronically signed by: Samir Galloway MD Board Certified Radiologist 08/03/2018 4:37 PM EST
--- NOTE | 2018-08-03 16:42 | ED ---
HPI General Chief complaint: Respiratory Symptoms Stated complaint: Resp/SOB (sent from [facility]) Time Seen by Provider: 08/03/18 15:37 Source: patient Mode of arrival: ambulatory Limitations: no limitations History of Present Illness HPI narrative: 53 yo F complains of dyspnea, severe for the past few weeks. pt went to [facility] today and o2 sats were in the 70s on RA up to 90s in ED. Pt complains of weight loss, decreased PO, continuous dyspnea. Pt reports quitting smoking 9 months prior after 40+ pack year history. No fever/chills. Timing constant. Related Data Home Medications Medication Instructions Recorded Confirmed No Known Home Medications 07/02/18 08/03/18 Allergies Allergy/AdvReac Type Severity Reaction Status Date / Time No Known Allergies Allergy Verified 08/03/18 15:39 Review of Systems ROS: all other systems reviewed are negative [facility] Medical History Medical History Smoker (Acute) Throat cancer (Acute) Surgical History Surgical History History of surgery on arm (Acute) Previous section (Acute) Social History Social History Substance History: Active Abuse Second Hand Smoke Exposure: No Smoking Status: Former smoker Tobacco Type: Cigarettes How Often Do You Have a Drink Containing Alcohol: 2 to 4 times a month Recent Travel in [facility] within the Last 8 Weeks: No Recent Out of Country Travel within the Last 8 Weeks: No Substance Abuse Detail Marijuana: Substance Use Status: Active Route Used Substance Abuse: By Mouth Immunization History Tetanus Immunization: Unsure Exam Narrative Exam Narrative: GENERAL: 53 yo F, thin, BMI 12 SKIN: Focused skin assessment warm/dry. HEAD: Atraumatic. Normocephalic. EYES: Pupils equal and round. No scleral icterus. No injection or drainage. ENT: No nasal bleeding or discharge. Mucous membranes pink and moist. NECK: Trachea midline. No JVD. CARDIOVASCULAR: Regular rate and rhythm. No murmur appreciated. RESPIRATORY: Breaths sounds present bilaterally. Rate approximately 16. GASTROINTESTINAL: Abdomen soft, non-tender, nondistended. Hepatic and splenic margins not palpable. MUSCULOSKELETAL: No obvious deformities. No clubbing. No cyanosis. No edema. NEUROLOGICAL: Awake and alert. No obvious cranial nerve deficits. Motor grossly within normal limits. Normal speech. PSYCHIATRIC: Appropriate mood and affect; insight and judgment normal. Course Initial Documented Vital Signs Temperature 98.1 F 08/03/18 15:27 Pulse Rate 86 08/03/18 15:27 Respiratory Rate 16 08/03/18 15:27 Blood Pressure 117/73 08/03/18 15:27 Pulse Oximetry 98 08/03/18 15:27 Last Documented Vital Signs Temperature 98.1 F 08/03/18 15:27 Pulse Rate 93 H 08/03/18 18:41 Respiratory Rate 18 08/03/18 18:41 Blood Pressure 96/61 L 08/03/18 18:41 Pulse Oximetry 93 L 08/03/18 18:41 Critical Care Time Critical Care Time: Yes Total Critical Care Time: 35 Attestation: Aggregate critical care time was 35 minutes. Time to perform other separately billable procedures was not included in the critical care time. My time did not include minutes spent treating any other patients simultaneously or on activities that did not directly contribute to the patient's treatment. The services I provided to this patient were to treat and/or prevent clinically significant deterioration that could result in: anoxia, cardiopulmonary arrest I provided critical care services requiring my management, as noted below: Chart data review, documentation time, medication orders and management, vital sign assessments/reviewing monitor data, ordering and reviewing lab tests, ordering and interpreting/reviewing x-rays and diagnostic studies, care of the patient and discussion of the patient with the admitting physicians. Medical Decision Making MDM Narrative Medical decision making narrative: Pt arrives with dyspnea and hypoxia. Improvement after duonebs x 3. Pt ambulated in ED and upon return to room, O2 sat was 85% on RA. Call to [facility] for admission for hypoxia with respiratory distress, med surg floor with telemetry considered appropriate. CMP normal CBC normal Tn < 0.[address] pulmonary angiogram: no PE, severe emphysema, no infection UA added on after complaint of dysuria d/w Dr Nguyen at 655pm for [facility] Medical Screen Exam Complete: Yes Emergency Medical Condition: Yes Differential Diagnosis Differential Diagnosis: neoplasia, pna, pe, emphysema Lab Data Result diagrams: 08/03/18 15:51 08/03/18 15:51 Lab Results 08/03/18 08/03/18 08/03/18 Range/Units 15:51 15:51 15:51 WBC 8.0 (4.0-11.0) th/mm3 RBC 5.90 H (4.00-5.30) mil/mm3 Hgb 18.8 H (11.6-15.3) gm/dL Hct 55.7 H (35.0-46.0) % MCV 94.4 (80.0-100.0) fL MCH 31.8 (27.0-34.0) pg MCHC 33.7 (32.0-36.0) % RDW 14.8 (11.6-17.2) % Plt Count 223 (150-450) th/mm3 MPV 8.6 (7.0-11.0) fL Neut % (Auto) 62.7 (16.0-70.0) % Lymph % (Auto) 28.3 (9.0-44.0) % [place] % (Auto) 6.4 (0.0-8.0) % Eos % (Auto) 1.8 (0.0-4.0) % Baso % (Auto) 0.8 (0.0-2.0) % Neut # (Auto) 5.0 (1.8-7.7) th/mm3 Lymph # (Auto) 2.3 (1.0-4.8) th/mm3 [place] # (Auto) 0.5 (0.0-0.9) th/mm3 Eos # (Auto) 0.1 (0.0-0.4) th/mm3 Baso # (Auto) 0.1 (0.0-0.2) th/mm3 WBC Differential . Differential Comment Auto diff final PT 9.7 L (9.8-11.6) sec INR 1.0 Ratio APTT 24.2 (23.4-31.7) sec Sodium 137 (136-145) meq/L Potassium 5.1 (3.5-5.1) meq/L Chloride 101 (98-107) meq/L Carbon Dioxide 32.4 H (21.0-32.0) meq/L Anion Gap 4 L (5-15) meq/L BUN 6 L (7-18) mg/dL Creatinine 0.75 (0.50-1.00) mg/dL Estimated GFR 81 L (>89) mL/min Random Glucose 91 (74-106) mg/dL Calcium 9.3 (8.5-10.1) mg/dL Total Bilirubin 0.4 (0.2-1.0) mg/dL AST 39 H (15-37) U/L ALT 28 (10-53) U/L Alkaline Phosphatase 117 (45-117) U/L Troponin I Less than 0.02 L (0.02-0.05) ng/mL B-Natriuretic Peptide (0-100) pg/mL Total Protein 8.2 (6.4-8.2) g/dL Albumin 3.9 (3.4-5.0) g/dL 08/03/18 Range/Units 15:51 WBC (4.0-11.0) th/mm3 RBC (4.00-5.30) mil/mm3 Hgb (11.6-15.3) gm/dL Hct (35.0-46.0) % MCV (80.0-100.0) fL MCH (27.0-34.0) pg MCHC (32.0-36.0) % RDW (11.6-17.2) % Plt Count (150-450) th/mm3 MPV (7.0-11.0) fL Neut % (Auto) (16.0-70.0) % Lymph % (Auto) (9.0-44.0) % [place] % (Auto) (0.0-8.0) % Eos % (Auto) (0.0-4.0) % Baso % (Auto) (0.0-2.0) % Neut # (Auto) (1.8-7.7) th/mm3 Lymph # (Auto) (1.0-4.8) th/mm3 [place] # (Auto) (0.0-0.9) th/mm3 Eos # (Auto) (0.0-0.4) th/mm3 Baso # (Auto) (0.0-0.2) th/mm3 WBC Differential Differential Comment PT (9.8-11.6) sec INR Ratio APTT (23.4-31.7) sec Sodium (136-145) meq/L Potassium (3.5-5.1) meq/L Chloride (98-107) meq/L Carbon Dioxide (21.0-32.0) meq/L Anion Gap (5-15) meq/L BUN (7-18) mg/dL Creatinine (0.50-1.00) mg/dL Estimated GFR (>89) mL/min Random Glucose (74-106) mg/dL Calcium (8.5-10.1) mg/dL Total Bilirubin (0.2-1.0) mg/dL AST (15-37) U/L ALT (10-53) U/L Alkaline Phosphatase (45-117) U/L Troponin I (0.02-0.05) ng/mL B-Natriuretic Peptide 7 (0-100) pg/mL Total Protein (6.4-8.2) g/dL Albumin (3.4-5.0) g/dL Imaging Data Radiologist's impression: Chest X-Ray 08/03/18 15:37 CONCLUSION: COPD No evidence of acute process. Chest CTA 08/03/18 15:38 CONCLUSION: 1. This study is negative for pulmonary embolism. 2. Severe emphysematous COPD 3. No evidence of acute airspace disease or suspicious nodular densities. Discharge Plan Discharge Disposition Patient Disposition: ED Admit(ED Internal Use Only) Discharge Order Discharge Orders: ED Use Only Admit Order (Routine); Ordered 08/03/18 Ordered By: Nilson Velasquez Physicians Team ED Provider: Nilson Velasquez Primary Care Provider: UNKNOWN, Rxs /Orders / Referrals /Forms Prescriptions: No Action No Known Home Medications RF: 0 Discharge Interventions Interventions: Vital Signs Last Done: 08/03/18 18:41 Status ED Status: With Doctor
[2018-08-03] MEDS ORDERED: Morphine Inj 4 MG/ML Vial IV.PUSH ONE (18:43)
[2018-08-03] MEDS ORDERED: Sod Chloride 0.9% Inj 1,000 ML IV.SIG SCH (18:45)
[2018-08-03] MEDS ORDERED: Acetaminophen 325 MG Tablet PO PRN ×2 (19:12→19:17)
[2018-08-03] MEDS ORDERED: Bisacodyl 10 MG Supp RECTAL PRN ×2 (19:12→19:17)
--- NOTE | 2018-08-03 19:27 | P.HPIM ---
History of Present Illness Primary Care Physician: UNKNOWN History of Present Illness: This is a 53-year-old female with a PMH of COPD and h/o Dysphagia who presented to the ER w/ complaints of SOB in addition to severe weakness. Notes approx 50lb weight loss in the last 3 months w/ significant weakness and decreased strength, decreased PO intake states "I feel full after a few bites". Per review of previous records, pt w/ dysphagia/ odynophagia for which she underwent direct laryngoscopy/esophagoscopy by Dr. Zuñiga 07/25/17 w/ no evidence of lesions, possible prior stricture. Has been doing well since that time until now. Denies fever, chills, cough or chest pain. Notes abdominal cramping/distention and "gas". On arrival, BP 117/73, HR 86, O2 sat 80% on RA, Afebrile. Hemoglobin 18.8. Chemistry essentially unremarkable. UA positive for UTI. CXR with COPD. CTA Chest severe emphysematous COPD, negative for PE. S/p DuoNeb and Solu-Medrol in ER w/ some improvement. Diagnosis (1) COPD (chronic obstructive pulmonary disease): (2) Hypoxia: (3) FTT (failure to thrive) in adult: (4) Dehydration: Review of Systems PAST FAMILY HISTORY: Reviewed. No h/o DM or CAD Review of Systems: all other systems reviewed are negative [facility] Medical History Medical History Smoker (Acute) Throat cancer (Acute) Surgical History Surgical History History of surgery on arm (Acute) Previous section (Acute) Social History Social History Substance History: Active Abuse Second Hand Smoke Exposure: No Smoking Status: Former smoker Tobacco Type: Cigarettes How Often Do You Have a Drink Containing Alcohol: 2 to 4 times a month Recent Travel in [facility] within the Last 8 Weeks: No Recent Out of Country Travel within the Last 8 Weeks: No Substance Abuse Detail Marijuana: Substance Use Status: Active Route Used Substance Abuse: By Mouth Immunization History Tetanus Immunization: Unsure Medications and Allergies Allergies Allergy/AdvReac Type Severity Reaction Status Date / Time No Known Allergies Allergy Verified 08/03/18 15:39 Home Medications Medication Instructions Recorded Confirmed Type No Known Home Medications 07/02/18 08/03/18 History Active Medications: Active Medications Acetaminophen (Tylenol) 650 mg PO Q4H PRN PRN Reason: Temp > 100.4 Acetaminophen (Tylenol) 650 mg PO Q4H PRN PRN Reason: Temp > 100.4 Al Hydroxide/Mg Hydroxide (Milk Of Magnesia Liq) 30 ml PO Q12H PRN PRN Reason: Mild Constipation Al Hydroxide/Mg Hydroxide (Milk Of Magnesia Liq) 30 ml PO Q12H PRN PRN Reason: Mild Constipation Albuterol (Duoneb Neb (Marie)) 1 ampul NEB Q6HR WHILE AWAKE NEB [facility] Last Admin: 08/03/18 19:20 Dose: 1 ampul Albuterol (Duoneb Neb (Prn)) 1 ampul NEB Q6HR NEB PRN PRN Reason: SHORTNESS OF BREATH Bisacodyl (Dulcolax Supp) 10 mg RECTAL DAILY PRN PRN Reason: SEVERE CONSITIPATION Bisacodyl (Dulcolax Supp) 10 mg RECTAL DAILY PRN PRN Reason: SEVERE CONSITIPATION Budesonide/Formoterol Fumarate (Symbicort 160/4.5 Mcg Inh) 2 puff INH BID [facility] Guaifenesin (Mucinex Er) 600 mg PO BID [facility] Heparin Sodium (Porcine) (Heparin Inj) 5,000 units SQ Q12H [facility] Sodium Chloride (Ns Inj) 1,000 mls @ 1,000 mls/hr IV.SIG BOLUS [facility] Stop: 08/03/18 19:44 Last Admin: 08/03/18 18:51 Dose: 1,000 mls/hr Sodium Chloride (Ns Inj) 1,000 mls @ 100 mls/hr IV.CONT .Q10H [facility] Lactulose (Lactulose Liq) 30 ml PO DAILY PRN PRN Reason: SEVERE CONSITIPATION Lactulose (Lactulose Liq) 30 ml PO DAILY PRN PRN Reason: SEVERE CONSITIPATION Methylprednisolone Sodium Succinate (Solumedrol Inj) 40 mg IV.PUSH Q6H [facility] Ondansetron HCl (Zofran Inj) 4 mg IV.PUSH Q6H PRN PRN Reason: NAUSEA OR VOMITING Ondansetron HCl (Zofran Inj) 4 mg IV.PUSH Q6H PRN PRN Reason: NAUSEA OR VOMITING Senna/Docusate Sodium (Sole-Colace) 1 tab PO BID MARIE Senna/Docusate Sodium (Sole-Colace) 1 tab PO BID MARIE Sennosides (Senokot) 17.2 mg PO Q12H PRN PRN Reason: Moderate Constipation Sennosides (Senokot) 17.2 mg PO Q12H PRN PRN Reason: Moderate Constipation Sodium Chloride (Ns Flush) 2 ml IV.FLUSH BID MARIE Sodium Chloride (Ns Flush) 2 ml IV.FLUSH PRN PRN PRN Reason: FLUSH AFTER USING IV ACCESS Sodium Chloride (Ns Flush) 2 ml IV.FLUSH BID MARIE Sodium Chloride (Ns Flush) 2 ml IV.FLUSH PRN PRN PRN Reason: FLUSH AFTER USING IV ACCESS Physical Exam Vital signs: Last Vital Signs Temp 98.1 F 08/03/18 15:27 Pulse 85 08/03/18 19:20 Resp 16 08/03/18 19:20 BP 96/61 L 08/03/18 18:41 Pulse Ox 95 08/03/18 19:11 Intake & Output 08/01/18 08/02/18 08/03/18 08/04/18 06:59 06:59 06:59 06:59 Weight 82 kg Narrative: PE: GENERAL: Pleasant middle-aged white female in no acute distress, extremely thin/ cachectic. SKIN: Focused skin assessment warm and dry. HEENT: PERRLA, EOMI. No scleral icterus or conjunctival pallor. No lid lag or facial droop. CARDIOVASCULAR: Regular rate and rhythm. No obvious murmurs to auscultation. No chest tenderness to palpation. RESPIRATORY: No obvious rhonchi. Occasional wheezing. Clear to auscultation. Breath sounds equal bilaterally. GASTROINTESTINAL: Abdomen soft, non-tender, nondistended. BS normal. MUSCULOSKELETAL: Extremities without clubbing, cyanosis, or edema. No obvious deformities. NEUROLOGICAL: Awake, alert and oriented x4. No focal neurologic deficits. Moving both upper and lower extremities spontaneously. PSYCHIATRIC: Appropriate mood and affect. Insight and judgment normal. Results Labs CBC & Chem 7: 08/03/18 15:51 08/03/18 15:51 Imaging Impressions Chest X-Ray 08/03/18 15:37 CONCLUSION: COPD No evidence of acute process. Chest CTA 08/03/18 15:38 CONCLUSION: 1. This study is negative for pulmonary embolism. 2. Severe emphysematous COPD 3. No evidence of acute airspace disease or suspicious nodular densities. Caprini VTE Risk Assessment Caprini VTE Risk Assessment: No/Low Risk (score <= 1) Caprini Risk Assessment Model: Point Value = 1 Point Value = 2 Point Value = 3 Point Value = 5 Age 41-60 Minor surgery BMI > 25 kg/m2 Swollen legs Varicose veins or History of unexplained or recurrent spontaneous Oral contraceptives or hormone replacement Sepsis (< 1 month) Serious lung disease, including pneumonia (< 1 month) Abnormal pulmonary function Acute myocardial infarction Congestive heart failure (< 1 month) History of inflammatory bowel disease Medical patient at bed rest Age 61-74 Arthroscopic surgery Major open surgery (> 45 min) Laparoscopic surgery (> 45 min) Malignancy Confined to bed (> 72 hours) Immobilizing plaster cast Central venous access Age >= 75 History of VTE Family history of VTE Factor V Leiden Prothrombin [id number] Lupus anticoagulant Anticardiolipin antibodies Elevated serum homocysteine Heparin-induced thrombocytopenia Other congenital or acquired thrombophilia Stroke (< 1 month) Elective arthroplasty Hip, pelvis, or leg fracture Acute spinal cord injury (< 1 month) Prophylaxis Regimen: Total Risk Factor Score Risk Level Prophylaxis Regimen 0-1 Low Early ambulation 2 Moderate Order ONE of the following: *Sequential Compression Device (SCD) *Heparin 5000 units SQ BID 3-4 Higher Order ONE of the following medications: *Heparin 5000 units SQ TID *Enoxaparin/Lovenox 40 mg SQ daily (WT < 150 kg, CrCl > 30 mL/min) *Enoxaparin/Lovenox 30 mg SQ daily (WT < 150 kg, CrCl > 10-29 mL/min) *Enoxaparin/Lovenox 30 mg SQ BID (WT < 150 kg, CrCl > 30 mL/min) AND/OR *Sequential Compression Device (SCD) 5 or more Highest Order ONE of the following medications: *Heparin 5000 units SQ TID (Preferred with Epidurals) *Enoxaparin/Lovenox 40 mg SQ daily (WT < 150 kg, CrCl > 30 mL/min) *Enoxaparin/Lovenox 30 mg SQ daily (WT < 150 kg, CrCl > 10-29 mL/min) *Enoxaparin/Lovenox 30 mg SQ BID (WT < 150 kg, CrCl > 30 mL/min) AND *Sequential Compression Device (SCD) Assessment and Plan (1) COPD (chronic obstructive pulmonary disease): Code(s): J44.9 - Chronic obstructive pulmonary disease, unspecified Status: Acute (2) Hypoxia: Code(s): R09.02 - Hypoxemia Status: Acute (3) FTT (failure to thrive) in adult: Code(s): R62.7 - Adult failure to thrive Status: Acute (4) Dehydration: Code(s): E86.0 - Dehydration Status: Acute Plan A/P: 1. COPD: Chronic Respiratory Failure w/ Acute Exacerbation. Moderate-Severe. S/p Solu-Medrol and DuoNeb w/ some improvement. CXR/CTA Chest negative for acute PE, +severe emphysematous changes. Continue Solu-Medrol, DuoNeb, add Symbicort Mucinex. 2. Hypoxia: O2 sat 80% on RA, monitor O2, continue NC as needed. 3. FTT: reports unintentional 50lb weight loss in last 3mo, +decreased PO intake, feels "full", +abdominal distention/gas, h/o dysphagia s/p laryngoscopy by Dr. Zuñiga 07/25/17 which was negative for lesions. +h/o tobacco, quit 9mo ago, CXR/CTA Chest w/ no nodules/mass. Last PAP 2yrs ago reports normal. Will check CT Abd/Pelvis to eval for possible abdominal mass. Consult GI for further eval/recommendations. Consult Graphic Design Specialist for assistance w/ nutrition. 4. Dehydration: Hemoconcentrated w/ Hgb 18, due to decreased PO intake, IVF for hydration, repeat labs in am. 5. UTI: U/a w/ bacteriuria, start Rocephin IV, IVF, monitor I/O, follow up urine cultures. 6. DVT Prophylaxis: SCD/Teds 7. Social work for d/c planning as needed. 8. Case discussed w/ ER physician at length, labs/records/imaging reviewed by me.
[2018-08-03 19:45] LABS: Amorphous Sediment,Urine Many /hpf; Bacteria,Urine Many /hpf; Bilirubin,Urine Negative (Negative); Calcium Oxalate Crystals,Urine Rare /hpf; Clarity,Urine Turbid (Clear); Color,Urine Yellow (Yellw/Straw); Glucose,Urine (UA) Negative (Negative); Leukocyte Esterase,Urine Trace (Negative); Mucus,Urine Many /lpf (Occasional); Nitrite,Urine Negative (Negative); Specific Gravity,Urine 1.052 (1.002-1.035); Squamous Epithelial Cell,Urine 6 /hpf (0-5)
[2018-08-03 19:49] LABS: Amphetamine Screen,Urine Neg (Neg); Barbiturate Screen,Urine Neg (Neg); Cannabinoid Screen,Urine Pos (Neg); Cocaine Screen,Urine Neg (Neg)
[2018-08-03 19:50] LABS: Opiate Screen,Urine Neg (Neg)
[2018-08-03] MEDS: Sod Chloride 0.9% Inj 1,000 ML IV.CONT SCH (20:06)
[2018-08-03] MEDS: MethylPREDNISolone Sod Succinate Inj 40 MG/ML Vial IV.PUSH SCH (20:12)
[2018-08-03] MEDS: Senna/Docusate Sodium 8.6/50 MG Tablet PO SCH (22:55)
[2018-08-04] MEDS: guaiFENesin 600 MG ER Tablet PO SCH ×3 (00:31→21:18)
[2018-08-04] MEDS: Heparin - SQ 10,000 UNITS/ML Vial SQ SCH ×3 (00:32→21:18)
[2018-08-04] MEDS: Senna/Docusate Sodium 8.6/50 MG Tablet PO SCH ×4 (00:34→21:18)
[2018-08-04] MEDS: Sod Chloride 0.9% Inj 1,000 ML IV.CONT SCH ×2 (00:34→05:51)
[2018-08-04] MEDS: MethylPREDNISolone Sod Succinate Inj 40 MG/ML Vial IV.PUSH SCH ×4 (01:34→21:18)
[2018-08-04] MEDS: Budesonide-Formoterol 160/4.5 MCG 6 GM Inhaler INH SCH ×3 (01:34→21:20)
[2018-08-04 09:38] LABS: Hematocrit 44.8 % (35.0-46.0); Hemoglobin 14.8 gm/dL (11.6-15.3); Mean Corpuscular HGB Conc 33.1 % (32.0-36.0); Mean Corpuscular Hemoglobin 32.1 pg (27.0-34.0); Mean Platelet Volume 8.8 fL (7.0-11.0); Platelet Count 165 th/mm3 (150-450); Red Blood Count 4.62 mil/mm3 (4.00-5.30); Red Cell Distribution Width 14.7 % (11.6-17.2); White Blood Count 10.7 th/mm3 (4.0-11.0)
[2018-08-04 09:54] LABS: Alanine Aminotransferase 22 U/L (10-53); Anion Gap 5 meq/L (5-15); Aspartate Aminotransferase 24 U/L (15-37); Blood Urea Nitrogen 8 mg/dL (7-18); Calcium 8.4 mg/dL (8.5-10.1); Carbon Dioxide 27.9 meq/L (21.0-32.0); Chloride 108 meq/L (98-107); Glucose,Random 87 mg/dL (74-106); Potassium 3.7 meq/L (3.5-5.1); Sodium 141 meq/L (136-145)
[2018-08-04 10:01] LABS: Alkaline Phosphatase 83 U/L (45-117); Glomerular Filtration Rate Greater Than 89 mL/min (>89); Total Protein 6.2 g/dL (6.4-8.2)
[2018-08-04 10:14] LABS: Lymphocytes 4 % (9-44)
[2018-08-04 10:15] LABS: Platelet Estimate Normal (Normal); Platelet Morphology Normal (Normal)
--- NOTE | 2018-08-04 10:54 | P.CONGI ---
History of Present Illness Consult date: 08/04/18 Chief complaint: HYPOXIA, EMPHYSEMA History of Present Illness: This is an unfortunate 53-year-old female with past medical history significant for COPD and nicotine abuse, she quit smoking 9 months ago. Patient presented to the emergency department with complaints of progressive shortness of breath over the past couple days but states that this has been going on for multiple months. She states that her breathing is so bad that she is unable to participate in any activities. Our service has been consulted to evaluate patient for dysphasia and weight loss. She has had a 51 pound weight loss over the past 6 months. States that this is related to poor appetite and dysphagia. Patient has undergone a previous workup for dysphagia by ENT at this hospital in July [address] of her neck done which showed small loculated air in the right tonsillar region, possibly a small tonsillar abscess without significant fluid accumulation identified. There is no airway obstructing lesions or adenopathy. She underwent direct laryngoscopy with esophagoscopy which showed no evidence of lesions involving the hypopharynx and endolarynx. 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 No signs of inflammation or infection in the base of the tongue, vallecula and piriform sinuses, endolarynx, hypopharynx or cervical esophagus. She states she was advised by the ENT to follow-up with gastroenterology for an EGD. Patient states that the dysphagia has been going on for multiple months. She reports that she has dysphagia with both liquids and solids. Reports associated odynophagia. Patient states that it feels as if the food is getting stuck and that she has to occasionally regurgitate after meals. She is only able to eat a few bites due to early satiety. She denies any nausea, vomiting, abdominal pain. She states that her bowel movements are few and far between secondary to her decreased appetite. Of note, patient does have significant COPD and some of her symptoms are likely related to this. She states that she gets progressively short of breath with meals and this also is related to the fact when she is not able to eat too much. Patient denies previous EGD or colonoscopy. She does not drink any alcohol. She quit smoking 9 months ago. Patient denies any NSAID use. She is on any blood thinners. Her father had some type of esophageal issue, she is unsure if this is cancer. <Jillian Cronin - Last Filed: 08/04/18 10:32> Review of Systems Cardiovascular: Denies chest pain Respiratory: Reports shortness of breath Gastrointestinal: Reports difficulty swallowing, Denies abdominal pain, Denies black, tarry stools, Denies bright, red blood in stools, Denies nausea, Denies vomiting <Jillian Cronin - Last Filed: 08/04/18 10:32> PMFSH - History History Provided By: Patient - Medical History Medical History: Medical History (Last Reviewed 08/04/18 @ 08:12 by Jessica Hilario) Smoker Throat cancer - Surgical History Surgical History: Surgical History (Last Reviewed 08/04/18 @ 08:12 by Jessica Hilario) History of surgery on arm Previous section - Tobacco History Second Hand Smoke Exposure: Yes Tobacco Use In Past 30 Days: No Smoking Status: Former smoker Tobacco Type: Cigarettes - Alcohol History How Often Do You Have a Drink Containing Alcohol: Never - Substance Use History Substance History: Active Abuse - Substance Use Type Marijuana Status: Active Route Used: Inhalation Frequency: Daily Last Used: Yesterday. Comment: To alleviate symptoms. - Travel History Recent Travel in the [place] Within the Last 8 Weeks: No Recent Travel Out of the Country Within the Last 8 Weeks: No - Immunization History Tetanus Immunization: Unsure Hx Influenza Vaccine This Season: No <Jillian Cronin - Last Filed: 08/04/18 10:32> - Medical History Medical History: Medical History (Last Reviewed 08/04/18 @ 08:12 by Jessica Hilario) Smoker Throat cancer - Surgical History Surgical History: Surgical History (Last Reviewed 08/04/18 @ 08:12 by Jessica Hilario) History of surgery on arm Previous section <Katelyn Lopez - Last Filed: 08/04/18 17:36> Medications and Allergies Active Medications: Active Medications Acetaminophen (Tylenol) 650 mg PO Q4H PRN PRN Reason: Temp > 100.4 Last Admin: 08/04/18 02:38 Dose: 650 mg Al Hydroxide/Mg Hydroxide (Milk Of Magnesia Liq) 30 ml PO Q12H PRN PRN Reason: Mild Constipation Al Hydroxide/Mg Hydroxide (Milk Of [place]ia Liq) 30 ml PO Q12H PRN PRN Reason: Mild Constipation Albuterol (Duoneb Neb (Marie)) 1 ampul NEB Q6HR WHILE AWAKE NEB [facility] Last Admin: 08/04/18 07:56 Dose: 1 ampul Albuterol (Duoneb Neb (Prn)) 1 ampul NEB Q6HR NEB PRN PRN Reason: SHORTNESS OF BREATH Bisacodyl (Dulcolax Supp) 10 mg RECTAL DAILY PRN PRN Reason: SEVERE CONSITIPATION Bisacodyl (Dulcolax Supp) 10 mg RECTAL DAILY PRN PRN Reason: SEVERE CONSITIPATION Budesonide/Formoterol Fumarate (Symbicort 160/4.5 Mcg Inh) 2 puff INH BID [facility] Last Admin: 08/04/18 09:25 Dose: 2 puff Guaifenesin (Mucinex Er) 600 mg PO BID [facility] Last Admin: 08/04/18 09:24 Dose: 600 mg Heparin Sodium (Porcine) (Heparin Inj) 5,000 units SQ Q12H [facility] Last Admin: 08/04/18 09:24 Dose: 5,000 units Sodium Chloride (Ns Inj) 1,000 mls @ 100 mls/hr IV.CONT .Q10H [facility] Last Admin: 08/04/18 05:51 Dose: Not Given Ceftriaxone Sodium 1,000 mg/ (Sodium Chloride) 100 mls @ 200 mls/hr IV.SIG Q24H [facility] Last Infusion: 08/04/18 02:01 Dose: Infused Lactulose (Lactulose Liq) 30 ml PO DAILY PRN PRN Reason: SEVERE CONSITIPATION Lactulose (Lactulose Liq) 30 ml PO DAILY PRN PRN Reason: SEVERE CONSITIPATION Methylprednisolone Sodium Succinate (Solumedrol Inj) 40 mg IV.PUSH Q6H [facility] Last Admin: 08/04/18 09:25 Dose: 40 mg Ondansetron HCl (Zofran Inj) 4 mg IV.PUSH Q6H PRN PRN Reason: NAUSEA OR VOMITING Ondansetron HCl (Zofran Inj) 4 mg IV.PUSH Q6H PRN PRN Reason: NAUSEA OR VOMITING Senna/Docusate Sodium (Sole-Colace) 1 tab PO BID [facility] Last Admin: 08/04/18 09:24 Dose: 1 tab Senna/Docusate Sodium (Sole-Colace) 1 tab PO BID [facility] Last Admin: 08/04/18 09:25 Dose: Not Given Sennosides (Senokot) 17.2 mg PO Q12H PRN PRN Reason: Moderate Constipation Sennosides (Senokot) 17.2 mg PO Q12H PRN PRN Reason: Moderate Constipation Sodium Chloride (Ns Flush) 2 ml IV.FLUSH BID [facility] Last Admin: 08/04/18 09:25 Dose: 2 ml Sodium Chloride (Ns Flush) 2 ml IV.FLUSH PRN PRN PRN Reason: FLUSH AFTER USING IV ACCESS Sodium Chloride (Ns Flush) 2 ml IV.FLUSH BID [facility] Last Admin: 08/04/18 09:25 Dose: Not Given Sodium Chloride (Ns Flush) 2 ml IV.FLUSH PRN PRN PRN Reason: FLUSH AFTER USING IV ACCESS <Jillian Cronin - Last Filed: 08/04/18 10:32> Active Medications: Active Medications Acetaminophen (Tylenol) 650 mg PO Q4H PRN PRN Reason: Temp > 100.4 Last Admin: 08/04/18 02:38 Dose: 650 mg Al Hydrox/Mg Hydrox/Simethicone (Mag-Al Plus Susp Liq) 30 ml PO Q6H PRN PRN Reason: GI upset Al Hydroxide/Mg Hydroxide (Milk Of Magnesia Liq) 30 ml PO Q12H PRN PRN Reason: Mild Constipation Albuterol (Duoneb Neb (Marie)) 1 ampul NEB Q4HR NEB [facility] Last Admin: 08/04/18 16:10 Dose: Not Given Albuterol (Duoneb Neb (Prn)) 1 ampul NEB Q2HR NEB PRN PRN Reason: DYSPNEA Alprazolam (Xanax) 0.125 mg PO Q6H PRN PRN Reason: ANXIETY Last Admin: 08/04/18 15:12 Dose: 0.125 mg Bisacodyl (Dulcolax Supp) 10 mg RECTAL DAILY PRN PRN Reason: SEVERE CONSITIPATION Budesonide/Formoterol Fumarate (Symbicort 160/4.5 Mcg Inh) 2 puff INH BID [facility] Last Admin: 08/04/18 09:25 Dose: 2 puff Guaifenesin (Mucinex Er) 600 mg PO BID [facility] Last Admin: 08/04/18 09:24 Dose: 600 mg Heparin Sodium (Porcine) (Heparin Inj) 5,000 units SQ Q12H [facility] Last Admin: 08/04/18 09:24 Dose: 5,000 units Lactulose (Lactulose Liq) 30 ml PO DAILY PRN PRN Reason: SEVERE CONSITIPATION Lidocaine HCl (Lidoderm 5% Patch.12 Hr) 1 patch T-DERMAL DAILY [facility] Last Admin: 08/04/18 14:08 Dose: 1 patch Methylprednisolone Sodium Succinate (Solumedrol Inj) 40 mg IV.PUSH Q6H [facility] Last Admin: 08/04/18 14:07 Dose: 40 mg Miscellaneous (Pill Splitter) 1 each OTHER UNSCH [facility] Ondansetron HCl (Zofran Inj) 4 mg IV.PUSH Q6H PRN PRN Reason: NAUSEA OR VOMITING Patch Removal (Remove Old Patch) 1 each T-DERMAL HS [facility] Senna/Docusate Sodium (Sole-Colace) 1 tab PO BID [facility] Last Admin: 08/04/18 09:25 Dose: Not Given Sennosides (Senokot) 17.2 mg PO Q12H PRN PRN Reason: Moderate Constipation Sodium Chloride (Ns Flush) 2 ml IV.FLUSH BID [facility] Last Admin: 08/04/18 09:25 Dose: Not Given Sodium Chloride (Ns Flush) 2 ml IV.FLUSH PRN PRN PRN Reason: FLUSH AFTER USING IV ACCESS <Katelyn Lopez A - Last Filed: 08/04/18 17:36> Allergies Allergy/AdvReac Type Severity Reaction Status Date / Time No Known Allergies Allergy Verified 08/03/18 15:39 Home Medications Medication Instructions Recorded Confirmed Type No Known Home Medications 07/02/18 08/03/18 History Exam Vital signs: Vital Signs 08/03/18 15:27 08/03/18 15:41 08/03/18 15:42 Temperature 98.1 F Pulse Rate 86 81 Respiratory Rate 16 26 H 15 Blood Pressure 117/73 132/79 Pulse Oximetry 98 80 L 94 L 08/03/18 15:43 08/03/18 17:18 08/03/18 17:20 Temperature Pulse Rate 67 71 Respiratory Rate 22 17 Blood Pressure 115/71 Pulse Oximetry 94 L 98 08/03/18 18:41 08/03/18 19:11 08/03/18 19:12 Temperature Pulse Rate 93 H 82 84 Respiratory Rate 18 16 18 Blood Pressure 96/61 L Pulse Oximetry 93 L 95 08/03/18 19:20 08/03/18 22:00 08/04/18 00:00 Temperature 97.7 F Pulse Rate 85 91 H 88 Respiratory Rate 16 18 16 Blood Pressure 92/51 L 84/48 L Pulse Oximetry 94 L 96 08/04/18 04:00 08/04/18 08:00 08/04/18 08:08 Temperature 97.8 F 98.0 F Pulse Rate 80 73 68 Respiratory Rate 16 18 18 Blood Pressure 93/50 L 88/52 L Pulse Oximetry 98 92 L 93 L Intake & Output 08/03/18 08/04/18 08/04/18 18:59 06:59 18:59 Intake Total 1100 / 1100 Balance 1100 / 1100 Weight 82 kg Intake: IV 1100 / 1100 NS Inj 1,000 ML @ 100 mls/hr IV 1000 / 1000 .CONT .Q10H [facility] Rx#:[id number] Rocephin Inj 1,000 MG In NS Inj 100 / 100 100 ML @ 200 mls/hr IV.SIG Q24H [facility] Rx#:[id number] Other: Date of Last Bowel Movement 08/03/18 - Constitutional no acute distress - Routine HEENT Exam Head: Present: normocephalic, atraumatic - Routine Respiratory Exam Present: wheezes, diminished air movement. Absent: accessory muscle use - Routine Cardiovascular Exam Present: RRR - Routine Abdominal Exam Present: soft, normoactive bowel sounds. Absent: tenderness, distended - Routine Skin Exam Present: dry, warm - Routine Neurological Exam Present: alert, oriented X3 <Jillian Cronin - Last Filed: 08/04/18 10:32> Vital signs: Vital Signs 08/03/18 18:41 08/03/18 19:11 08/03/18 19:12 Temperature Pulse Rate 93 H 82 84 Respiratory Rate 18 16 18 Blood Pressure 96/61 L Pulse Oximetry 93 L 95 08/03/18 19:20 08/03/18 22:00 08/04/18 00:00 Temperature 97.7 F Pulse Rate 85 91 H 88 Respiratory Rate 16 18 16 Blood Pressure 92/51 L 84/48 L Pulse Oximetry 94 L 96 08/04/18 04:00 08/04/18 08:00 08/04/18 08:08 Temperature 97.8 F 98.0 F Pulse Rate 80 73 68 Respiratory Rate 16 18 18 Blood Pressure 93/50 L 88/52 L Pulse Oximetry 98 92 L 93 L 08/04/18 12:29 08/04/18 12:33 08/04/18 15:21 Temperature 98.0 F Pulse Rate 82 88 Respiratory Rate 16 Blood Pressure 90/55 L 90/56 L 128/80 Pulse Oximetry 94 L 96 Intake & Output 08/03/18 08/04/18 08/04/18 18:59 06:59 18:59 Intake Total 1100 / 1100 1000 / 1000 Balance 1100 / 1100 1000 / 1000 Weight 82 kg Intake: IV 1100 / 1100 1000 / 1000 NS Inj 1,000 ML @ 100 mls/hr IV 1000 / 1000 1000 / 1000 .CONT .Q10H [facility] Rx#:[id number] Rocephin Inj 1,000 MG In NS Inj 100 / 100 100 ML @ 200 mls/hr IV.SIG Q24H [facility] Rx#:[id number] Other: Date of Last Bowel Movement 08/03/18 <Katelyn Lopez A - Last Filed: 08/04/18 17:36> Results - Labs CBC & Chem 7: 08/04/18 08:50 08/04/18 08:56 Labs: Laboratory Results - last 24 hr 08/03/18 08/03/18 08/03/18 15:51 15:51 15:51 WBC 8.0 RBC 5.90 H Hgb 18.8 H Hct 55.7 H MCV 94.4 MCH 31.8 MCHC 33.7 RDW 14.8 Plt Count 223 MPV 8.6 Prelim Diff (Auto) Neut % (Auto) 62.7 Lymph % (Auto) 28.3 [place] % (Auto) 6.4 Eos % (Auto) 1.8 Baso % (Auto) 0.8 Neut # (Auto) 5.0 Lymph # (Auto) 2.3 [place] # (Auto) 0.5 Eos # (Auto) 0.1 Baso # (Auto) 0.1 WBC Differential . Seg Neuts % (Manual) Band Neuts % (Manual) Lymphocytes % (Manual) Abs Neuts (Manual) Differential Comment Auto diff final Platelet Estimate Platelet Morphology PT 9.7 L INR 1.0 APTT 24.2 Sodium 137 Potassium 5.1 Chloride 101 Carbon Dioxide 32.4 H Anion Gap 4 L BUN 6 L Creatinine 0.75 Estimated GFR 81 L Random Glucose 91 Calcium 9.3 Total Bilirubin 0.4 AST 39 H ALT 28 Alkaline Phosphatase 117 Troponin I Less than 0.02 L B-Natriuretic Peptide Total Protein 8.2 Albumin 3.9 Urine Color Urine Clarity Urine pH Ur Specific [place] Urine Protein Urine Glucose (UA) Urine Ketones Urine Occult Blood Urine Nitrate Urine Bilirubin Urine Urobilinogen Ur Leukocyte Esterase Ur Squamous Epith Cells Calcium Oxalate Crystal Amorphous Sediment Urine Bacteria Urine Mucus Micro UA Comment Ur Microscopic Review Urine Culture Comments Urine Opiates Screen Ur Barbiturates Screen Ur Amphetamines Screen U Benzodiazepines Scrn Urine Cocaine Screen U Cannabinoids Screen 08/03/18 08/03/18 08/03/18 15:51 18:48 18:48 WBC RBC Hgb Hct MCV MCH MCHC RDW Plt Count MPV Prelim Diff (Auto) Neut % (Auto) Lymph % (Auto) [place] % (Auto) Eos % (Auto) Baso % (Auto) Neut # (Auto) Lymph # (Auto) [place] # (Auto) Eos # (Auto) Baso # (Auto) WBC Differential Seg Neuts % (Manual) Band Neuts % (Manual) Lymphocytes % (Manual) Abs Neuts (Manual) Differential Comment Platelet Estimate Platelet Morphology PT INR APTT Sodium Potassium Chloride Carbon Dioxide Anion Gap BUN Creatinine Estimated GFR Random Glucose Calcium Total Bilirubin AST ALT Alkaline Phosphatase Troponin I B-Natriuretic Peptide 7 Total Protein Albumin Urine Color Yellow Urine Clarity Turbid H Urine pH 5.0 Ur Specific [place] 1.052 H Urine Protein 500 or greater Urine Glucose (UA) Negative Urine Ketones Negative Urine Occult Blood Negative Urine Nitrate Negative Urine Bilirubin Negative Urine Urobilinogen 2.0 H Ur Leukocyte Esterase Trace H Ur Squamous Epith Cells 6 Calcium Oxalate Crystal Rare H Amorphous Sediment Many H Urine Bacteria Many H Urine Mucus Many H Micro UA Comment Culture indicated Ur Microscopic Review Not Reportable Urine Culture Comments Culture indicated Urine Opiates Screen Neg Ur Barbiturates Screen Neg Ur Amphetamines Screen Neg U Benzodiazepines Scrn Neg Urine Cocaine Screen Neg U Cannabinoids Screen Pos H 08/04/18 08/04/18 08:50 08:56 WBC 10.7 RBC 4.62 Hgb 14.8 D Hct 44.8 MCV 97.0 MCH 32.1 MCHC 33.1 RDW 14.7 Plt Count 165 MPV 8.8 Prelim Diff (Auto) Manual diff required Neut % (Auto) Lymph % (Auto) [place] % (Auto) Eos % (Auto) Baso % (Auto) Neut # (Auto) Lymph # (Auto) [place] # (Auto) Eos # (Auto) Baso # (Auto) WBC Differential Manual diff final Seg Neuts % (Manual) 85 H Band Neuts % (Manual) 11 H Lymphocytes % (Manual) 4 L Abs Neuts (Manual) 10.3 H Differential Comment . Platelet Estimate Normal Platelet Morphology Normal PT INR APTT Sodium 141 Potassium 3.7 D Chloride 108 H Carbon Dioxide 27.9 Anion Gap 5 BUN 8 Creatinine 0.52 Estimated GFR Greater than 89 Random Glucose 87 Calcium 8.4 L D Total Bilirubin 0.3 AST 24 ALT 22 Alkaline Phosphatase 83 Troponin I B-Natriuretic Peptide Total Protein 6.2 L D Albumin 3.0 L D Urine Color Urine Clarity Urine pH Ur Specific [place] Urine Protein Urine Glucose (UA) Urine Ketones Urine Occult Blood Urine Nitrate Urine Bilirubin Urine Urobilinogen Ur Leukocyte Esterase Ur Squamous Epith Cells Calcium Oxalate Crystal Amorphous Sediment Urine Bacteria Urine Mucus Micro UA Comment Ur Microscopic Review Urine Culture Comments Urine Opiates Screen Ur Barbiturates Screen Ur Amphetamines Screen U Benzodiazepines Scrn Urine Cocaine Screen U Cannabinoids Screen - Imaging Impressions Chest X-Ray 08/03/18 15:37 CONCLUSION: COPD No evidence of acute process. Chest CTA 08/03/18 15:38 CONCLUSION: 1. This study is negative for pulmonary embolism. 2. Severe emphysematous COPD 3. No evidence of acute airspace disease or suspicious nodular densities. <Jillian Cronin - Last Filed: 08/04/18 10:32> - Labs CBC & Chem 7: 08/04/18 08:50 08/04/18 08:56 Labs: Laboratory Results - last 24 hr 08/03/18 08/03/18 08/04/18 18:48 18:48 08:50 WBC 10.7 RBC 4.62 Hgb 14.8 D Hct 44.8 MCV 97.0 MCH 32.1 MCHC 33.1 RDW 14.7 Plt Count 165 MPV 8.8 Prelim Diff (Auto) Manual diff required WBC Differential Manual diff final Seg Neuts % (Manual) 85 H Band Neuts % (Manual) 11 H Lymphocytes % (Manual) 4 L Abs Neuts (Manual) 10.3 H Differential Comment . Platelet Estimate Normal Platelet Morphology Normal Sodium Potassium Chloride Carbon Dioxide Anion Gap BUN Creatinine Estimated GFR Random Glucose Calcium Total Bilirubin AST ALT Alkaline Phosphatase Total Creatine Kinase Troponin I Total Protein Albumin Amylase Lipase Vitamin D 25-Hydroxy Urine Color Yellow Urine Clarity Turbid H Urine pH 5.0 Ur Specific [place] 1.052 H Urine Protein 500 or greater Urine Glucose (UA) Negative Urine Ketones Negative Urine Occult Blood Negative Urine Nitrate Negative Urine Bilirubin Negative Urine Urobilinogen 2.0 H Ur Leukocyte Esterase Trace H Ur Squamous Epith Cells 6 Calcium Oxalate Crystal Rare H Amorphous Sediment Many H Urine Bacteria Many H Urine Mucus Many H Micro UA Comment Culture indicated Ur Microscopic Review Not Reportable Urine Culture Comments Culture indicated Urine Opiates Screen Neg Ur Barbiturates Screen Neg Ur Amphetamines Screen Neg U Benzodiazepines Scrn Neg Urine Cocaine Screen Neg U Cannabinoids Screen Pos H 08/04/18 08/04/18 08/04/18 08:56 08:56 15:40 WBC RBC Hgb Hct MCV MCH MCHC RDW Plt Count MPV Prelim Diff (Auto) WBC Differential Seg Neuts % (Manual) Band Neuts % (Manual) Lymphocytes % (Manual) Abs Neuts (Manual) Differential Comment Platelet Estimate Platelet Morphology Sodium 141 Potassium 3.7 D Chloride 108 H Carbon Dioxide 27.9 Anion Gap 5 BUN 8 Creatinine 0.52 Estimated GFR Greater than 89 Random Glucose 87 Calcium 8.4 L D Total Bilirubin 0.3 AST 24 ALT 22 Alkaline Phosphatase 83 Total Creatine Kinase 78 Troponin I Less than 0.02 L Total Protein 6.2 L D Albumin 3.0 L D Amylase 55 Lipase 305 Vitamin D 25-Hydroxy 20.8 L Urine Color Urine Clarity Urine pH Ur Specific [place] Urine Protein Urine Glucose (UA) Urine Ketones Urine Occult Blood Urine Nitrate Urine Bilirubin Urine Urobilinogen Ur Leukocyte Esterase Ur Squamous Epith Cells Calcium Oxalate Crystal Amorphous Sediment Urine Bacteria Urine Mucus Micro UA Comment Ur Microscopic Review Urine Culture Comments Urine Opiates Screen Ur Barbiturates Screen Ur Amphetamines Screen U Benzodiazepines Scrn Urine Cocaine Screen U Cannabinoids Screen <Katelyn Lopez A - Last Filed: 08/04/18 17:36> Assessment and Plan - Plan Assessment Dysphagia-seen by ENT for same at this hospital in July [address] of her neck done which showed small loculated air in the right tonsillar region, possibly a small tonsillar abscess without significant fluid accumulation identified. There is no airway obstructing lesions or adenopathy. She underwent direct laryngoscopy with esophagoscopy which showed no evidence of lesions involving the hypopharynx and endolarynx. 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 No signs of inflammation or infection in the base of the tongue, vallecula and piriform sinuses, endolarynx, hypopharynx or cervical esophagus. She states she was advised by the ENT to follow-up with gastroenterology for an EGD. Has never had EGD. Unintentional weight losspatient reports a 51 pound weight loss over the past 6 months. She attributes this to decreased appetite, early satiety and overall weakness. Patient with advanced COPD which is likely contributing to her symptoms, she states that she is unable to finish a meal without becoming progressively short of breath. Plan Recommend EGD once patient is cleared by pulmonology CT abdomen/pelvis to evaluate unintentional weight loss Further recommendations based on clinical course This patient has been seen and examined by myself and Dr. Lopez and this note is written on his behalf <Jillian Cronin - Last Filed: 08/04/18 10:32> - Attending Attestation Plan as above, check tumor markers. Further recommendations to follow. <Katelyn Lopez - Last Filed: 08/04/18 17:36>
--- NOTE | 2018-08-04 13:26 | MB ---
cc: Donn Bliss MD DATE: 08/04/2018 HISTORY OF PRESENT ILLNESS: The patient is a 53-year-old female with a past medical history of COPD, who presented to [facility] ED on 08/03/2018 with shortness of breath for several months, progressively worsened 1 week ago. She went to outpatient clinic yesterday, and was found to have low O2 saturation, and was subsequently transferred to the ED for further evaluation and management. The patient also reports midsternal chest pain with shortness of breath, productive cough with thick phlegm, and wheezing. A chest x-ray on admission showed COPD without any evidence of acute process. The patient also underwent CT angiogram of the chest, which was negative for pulmonary embolism; however, it showed severe emphysematous COPD changes. No evidence of acute airspace disease or any nodular densities. On further history, the patient states that she had a 51-pound weight loss in the last 3 months. She denies any changes in appetite; however, she gets bloated after eating. She denies any hemoptysis or exposure to sick contacts. She quit smoking 9 months ago, and has a [id number] history of smoking. She denies any use of bronchodilators or oxygen at home. The patient states that she has not seen a physician for a long time due to lack of insurance. Per records, she underwent a direct laryngoscopy by Dr. Zuñiga on 07/30/2017 with no evidence of any lesions. She was placed on bronchodilators, IV steroids for COPD exacerbation. PAST MEDICAL HISTORY: Significant for COPD. PAST SURGICAL HISTORY: Previous , surgery on her arm. ALLERGIES: BACTRIM. SOCIAL HISTORY: Quit smoking 9 months ago. Has a [id number] history of smoking. The patient admits to using cannabinoids. Her urine drug screen was positive for cannabinoids. FAMILY HISTORY: Mother at age 68 with lung cancer. Father with colon cancer. REVIEW OF SYSTEMS: As per HPI, rest of review of systems is unremarkable. ACTIVE MEDICATIONS: DuoNeb, Symbicort, Solu-Medrol, Rocephin, heparin subcutaneously. PHYSICAL EXAMINATION: GENERAL: A 53-year-old female lying in bed, in no acute distress. VITAL SIGNS: Temperature 98.0, pulse 82, respiratory rate 16, blood pressure 90/56, saturation of 94% on 4 liter oxygen. HEENT: Atraumatic, normocephalic. Pupils are equal, round, reactive to light and accommodation. Extraocular muscles intact. Conjunctivae pink. Nonicteric sclerae. Oral mucosa within normal. NECK: Supple. No JVD, adenopathy or thyromegaly. Trachea in the midline. CARDIOVASCULAR: Regular rate and rhythm. Normal S1, S2. No murmurs, rubs or gallops noted. PULMONARY: Bilateral equal air entry. No rales or wheezing. Diminished breath sounds. ABDOMEN: Soft, nontender. No distention. Positive bowel sounds. EXTREMITIES: No cyanosis, clubbing, edema. NEUROLOGIC: No focal sensory deficit. LABORATORY DATA: WBC 10.7, hemoglobin 14.8, hematocrit 44, platelet count 165. Sodium 141, potassium 3.7, chloride 108, BUN 8, creatinine 0.52, glucose of 87. Urine drug screen positive for cannabinoids. IMAGING: CT angiogram of the chest showed no evidence of pulmonary embolism, COPD changes. ASSESSMENT: 1. Acute hypoxemic respiratory insufficiency. 2. Chronic obstructive pulmonary disease exacerbation. 3. Tobacco abuse. 4. Urinary tract infection. 5. Failure to thrive. RECOMMENDATIONS: 1. Wean down oxygen as tolerated and maintain saturation above 92%. 2. Bronchodilators in the form of DuoNeb every 4 hours plus every 2 hours p.r.n. for shortness of breath. Continue with Symbicort 160/4.5, two puffs b.i.d. Agree with steroids. She is currently on Solu-Medrol 40 mg IV q. 6 hours. 3. BiPAP p.r.n. for respiratory distress. 4. CT angiogram of the chest showed no evidence of pulmonary embolism or COPD changes. 5. Continue with empiric antibiotics. She is on Rocephin 1 gram IV daily. 6. We will need a pulmonary function test, when respiratory status improves to assess the severity of her obstructive lung disease. 7. The patient has been seen by GI service for dysphagia. 8. We will need to assess for home oxygen with a 6-minute walk test prior to discharge. 9. Check chest x-ray in a.m. 10. Gastrointestinal and deep venous thrombosis prophylaxis. She is on heparin subcutaneously. 11. Further recommendations will be based on hospital course. Thank you for consultation and allowing us to participate in this patient's care. MD Soco Ortiz , 12:54 PM , 01:07 PM
--- NOTE | 2018-08-04 13:50 | P.PNIM ---
Subjective Interval history: Patient with COPD exacerbation. Patient seen and examined. Patient continues to have significant shortness of breath. She does not use oxygen at home but only because she does not have insurance. She is basically homebound due to her profound dyspnea and makes it nearly impossible for her to exert herself. She reports significant weight loss stating that she is had a 51 pound weight loss over the past 6 months. She states she is lost 24 pounds in the past 2 months. She reports dysphagia and odynophagia. She reports early satiety. She is also not able to eat much secondary to significant shortness of breath with eating. She has not been seen by a joint supervisor. She states she has been getting progressively weaker. She is complaining of back pain. Physical Exam Vital signs: Last Vital Signs Temp 98.0 F 08/04/18 12:29 Pulse 82 08/04/18 12:29 Resp 16 08/04/18 12:29 BP 90/56 L 08/04/18 12:33 Pulse Ox 94 L 08/04/18 12:29 Intake & Output 08/02/18 08/03/18 08/04/18 08/05/18 06:59 06:59 06:59 06:59 Intake Total 1100 / 1100 Balance 1100 / 1100 Weight 82 kg Narrative: GENERAL: Thin cachectic ill-appearing pleasant middle-aged female patient, no acute distress. Awake and alert. SKIN: Warm and dry. No generalized rash. HEENT: Atraumatic. Normocephalic. Pupils equal and round. No scleral icterus. No injection or drainage. No nasal bleeding or discharge. Mucous membranes pink and moist. NECK: Trachea midline. CARDIOVASCULAR: Regular rate and rhythm. No obvious murmurs auscultated. RESPIRATORY: No accessory muscle use. Tight air entry. Diffuse wheezing throughout. GASTROINTESTINAL: Abdomen soft, non-tender, nondistended. +BS. MUSCULOSKELETAL: Extremities without clubbing, cyanosis, or edema. No obvious deformities. Tenderness to palpation thoracic and lumbar paraspinous muscles. Decreased range of motion. NEUROLOGICAL: Awake and alert. No obvious cranial nerve deficits. Able to move all extremities spontaneously. Normal speech. PSYCHIATRIC: Appropriate mood and affect; insight and judgment normal. Results Labs CBC & Chem 7: 08/04/18 08:50 08/04/18 08:56 Labs: Microbiology 08/03/18 15:51 Blood - Peripheral Aerobic Blood Culture - Preliminary No growth in 1 day 08/03/18 15:51 Blood - Peripheral Anaerobic Blood Culture - Preliminary No growth in 1 day 08/03/18 15:51 Nasal Wash Influenza Types A,B Antigen - Final Negative for FLU A and B antigen Infection due to influenza A or B cannot be ruled out since the antigen present in the sample may be below the detection limit of the test. Imaging Imaging: Impressions Chest X-Ray 08/03/18 15:37 CONCLUSION: COPD No evidence of acute process. Chest CTA 08/03/18 15:38 CONCLUSION: 1. This study is negative for pulmonary embolism. 2. Severe emphysematous COPD 3. No evidence of acute airspace disease or suspicious nodular densities. Assessment and Plan (1) COPD (chronic obstructive pulmonary disease): Code(s): J44.9 - Chronic obstructive pulmonary disease, unspecified Status: Acute (2) Hypoxia: Code(s): R09.02 - Hypoxemia Status: Acute (3) FTT (failure to thrive) in adult: Code(s): R62.7 - Adult failure to thrive Status: Acute (4) Dehydration: Code(s): E86.0 - Dehydration Status: Acute Plan 53-year-old female with a PMH of COPD and h/o Dysphagia who presented to the ER w/ complaints of SOB in addition to severe weakness. COPD: w/ Acute moderate to severe exacerbation Acute on chronic hypoxic respiratory failure: S/p Solu-Medrol and DuoNeb w/ some improvement. CXR/CTA Chest negative for acute PE, +severe emphysematous changes. -Consult pulmonary medicine, appreciate assistance -Continue Solu-Medrol -Continue on Symbicort -Continue on Mucinex -Continue on scheduled DuoNeb treatments -Continue on supplemental oxygen as needed -Continue to monitor respiratory status FTT: reports unintentional 50lb weight loss in last 3mo, +decreased PO intake, feels "full", +abdominal distention/gas, h/o dysphagia s/p laryngoscopy by Dr. Zuñiga 07/25/17 which was negative for lesions. +h/o tobacco, quit 9mo ago Advanced COPD likely contributing to patient's weight loss CXR/CTA Chest w/ no nodules/mass. Last PAP 2yrs ago reports normal. -GI following, appreciate assistance. Recommends EGD once patient cleared by pulmonology. -Will check CT Abd/Pelvis to eval for possible abdominal mass. -Consult [employer] for assistance w/ nutrition. Dehydration: Hemoconcentrated w/ Hgb 18, due to decreased PO intake -IVF for hydration -Repeat hemoglobin 14.8 -Encourage p.o. fluid intake UTI: U/a w/ bacteriuria -started on Rocephin IV -Urine cultures negative. DC IV Rocephin. Back pain: Suspect secondary to profound weight loss -Obtain imaging of thoracic and lumbar spine -Obtain vitamin D level -Unable to give narcotic medication secondary to hypotension. Lidoderm patch. K thermia. -Continue with PT DVT Prophylaxis: SCD/Teds Progress Note: Quality VTE Deep Vein Thrombosis/Pulmonary Embolism Present on Admission: No
[2018-08-04] MEDS: Lidocaine 5% Patch T-DERMAL SCH (14:08)
[2018-08-04] MEDS: ALPRAZolam 0.25 MG Tablet PO PRN (15:12)
[2018-08-04] MEDS ORDERED: Aluminum/Magnesium/Simethacone Susp 30 ML UDC PO ONE (15:17)
[2018-08-04] MEDS ORDERED: Pantoprazole Inj 40 MG Vial IV.PUSH ONE (15:27)
[2018-08-04] MEDS ORDERED: Morphine Inj 4 MG/ML Vial IV.PUSH ONE (15:27)
--- NOTE | 2018-08-04 15:59 | ECG ---
Date Performed: 08/03/2018 Time Performed: 15:44:09 PTAGE: 53 years EKG: Sinus rhythm POSSIBLE RIGHT ATRIAL ENLARGEMENT POSSIBLE LEFT ATRIAL ENLARGEMENT PROBABLE SEPTAL MYOCARDIAL INFARC TION, AGE UNDETERMINED Since the previous tracing, no significant change noted BORDERLINE ECG NO PREVIOUS TRACING DOCTOR: Zach Ge Interpretating Date/Time 08/04/2018 15:57:50
[2018-08-04 16:14] LABS: Amylase 55 U/L (25-115); Lipase 305 U/L (73-393)
[2018-08-04 16:20] LABS: Creatine Kinase 78 U/L (26-192)
[2018-08-04] MEDS ORDERED: Aluminum/Magnesium/Simethacone Susp 30 ML UDC PO PRN (17:13)
[2018-08-04] MEDS ORDERED: Simethicone 80 MG Chew Tablet PO PRN (17:15)
[2018-08-04] MEDS ORDERED: Sod Chloride 0.9% Inj 1,000 ML IV.CONT SCH (18:07)
[2018-08-04 22:02] LABS: Alpha Fetoprotein Tumor Marker 6.5 ng/mL (0.5-8.0); Carcinoembryonic Antigen 3.6 ng/mL (0.2-5.0)
[2018-08-04 22:03] LABS: Troponin I 0.03 ng/mL (0.02-0.05)
[2018-08-05] MEDS: MethylPREDNISolone Sod Succinate Inj 40 MG/ML Vial IV.PUSH SCH ×4 (02:05→20:31)
[2018-08-05 05:31] LABS: Troponin I 0.09 ng/mL (0.02-0.05)
--- NOTE | 2018-08-05 07:26 | XR ---
EXAM DATE: 08/05/2018 7:24 AM EST AGE/SEX: 53 years / Female INDICATIONS: Short of breath. CLINICAL DATA: This is the patient's subsequent encounter. Patient reports that signs and symptoms h ave been present for 3 days and indicates a pain score of Nonresponsive. MEDICAL/SURGICAL HISTORY: . carcinoma of throat None. COMPARISON: [facility] – [place], CHEST 1V SINGLE AP, 08/03/2018. . FINDINGS: Mild interstitial changes in the right lung with trace pleural effusion and probable early consolidat ion right base. Left lung clear Cardiac silhouette appropriate The portion of the bony skeleton visualized is unremarkable. CONCLUSION: Abnormal right lung. Considerations would include inflammatory process right base. Electronically signed by: Yg Villalta MD Board Certified Radiologist 08/05/2018 7:25 AM EST
[2018-08-05] MEDS: Senna/Docusate Sodium 8.6/50 MG Tablet PO SCH ×2 (09:21→20:25)
[2018-08-05] MEDS: ALPRAZolam 0.25 MG Tablet PO PRN ×2 (09:22→16:06)
[2018-08-05] MEDS: Azithromycin 250 MG Tablet PO SCH (09:22)
--- NOTE | 2018-08-05 09:23 | P.PNPL ---
Subjective Interval history: No events overnight. Breathing better now on 2L oxygen. Afebrile. Physical Exam Vital signs: Vital Signs 08/04/18 12:29 08/04/18 12:33 08/04/18 15:21 Temperature 98.0 F Pulse Rate 82 88 Respiratory Rate 16 Blood Pressure 90/55 L 90/56 L 128/80 Pulse Oximetry 94 L 96 08/04/18 16:00 08/04/18 19:18 08/05/18 00:00 Temperature 97.8 F 97.9 F Pulse Rate 78 69 Respiratory Rate 20 17 16 Blood Pressure 132/82 133/71 Pulse Oximetry 96 97 08/05/18 03:35 08/05/18 04:00 08/05/18 07:31 Temperature 98.0 F Pulse Rate 73 64 76 Respiratory Rate 16 20 Blood Pressure 132/77 Pulse Oximetry 95 97 08/05/18 08:04 Temperature 98.3 F Pulse Rate 89 Respiratory Rate 20 Blood Pressure 110/68 Pulse Oximetry 93 L Intake & Output 08/04/18 08/05/18 08/05/18 18:59 06:59 18:59 Intake Total 1999 950 / 950 Output Total 250 / 250 Balance 1999 700 / 700 Intake: IV 1999 NS Inj 1,000 ML @ 100 mls/hr IV 1000 / 1000 .CONT .Q10H LILIANA Rx#:[id number] Oral 950 / 950 Output: Emesis 250 / 250 Other: # Voids 4 Date of Last Bowel Movement 08/03/18 # Bowel Movements 2 3 - Constitutional no acute distress, thin - Routine HEENT Exam Head: Present: normocephalic, atraumatic Eye: Present: EOMI, PERRL, normal accommodation, conjunctivae pink ENT: Present: mucous membranes moist - Routine Neck Exam Present: supple, full ROM, trachea midline - Routine Respiratory Exam Present: CTA bilaterally - Routine Cardiovascular Exam Present: RRR, S1, S2 - Routine Abdominal Exam Present: soft, normoactive bowel sounds - Routine Extremities Exam Present: full ROM, pulses intact - Routine Skin Exam Present: intact, dry - Routine Neurological Exam Present: alert, oriented X3, CN II-XII intact Assessment and Plan - Plan 1. Respiratory insufficiency. 2. COPD exacerbation. 3. Tobacco abuse. 4. Urinary tract infection. 5. Failure to thrive. Plan Continue with oxygen and maintain sats >2%. Bronchodilators ( DuoNeb, Symbicort) on Solu-Medrol 40 mg IV q. 6 hours. BiPAP p.r.n. for respiratory distress. CTA chest showed no evidence of pulmonary embolism, COPD changes. CXR today: Mild interstitial changes in the right lung with trace pleural effusion and probable early consolidation right base. Left lung clear Abx- resume Rocephin 1 gram IV daily, Azithromycin. Check sputum cx. Nasal washing negative for Influenza on 08/03 PFT when respiratory status improves to assess the severity of her obstructive lung disease. Assess for home oxygen with a 6-minute walk test prior to discharge. GI is following for dysphagia, awaiting CT abdomen/pelvis GI/DVT prophylaxis. on heparin subcutaneously.
[2018-08-05] MEDS: guaiFENesin 600 MG ER Tablet PO SCH ×2 (09:24→20:31)
[2018-08-05] MEDS: Heparin - SQ 10,000 UNITS/ML Vial SQ SCH ×2 (09:26→20:26)
[2018-08-05] MEDS: Budesonide-Formoterol 160/4.5 MCG 6 GM Inhaler INH SCH ×2 (09:26→20:32)
[2018-08-05] MEDS: Lidocaine 5% Patch T-DERMAL SCH (09:27)
--- NOTE | 2018-08-05 10:08 | ECG ---
Date Performed: 08/04/2018 Time Performed: 14:48:08 PTAGE: 53 years EKG: Sinus rhythm NORMAL ECG NO PREVIOUS TRACING DOCTOR: Jose Oneil Interpretating Date/Time 08/05/2018 10:06:53
--- NOTE | 2018-08-05 11:13 | P.PNGI ---
Subjective Interval history: Patient awake and alert Semirecumbent in bed O2 2 L nasal cannula Reports persistent abdominal discomfort-cramping and pressure CT pending Physical Exam Vital signs: Vital Signs 08/04/18 12:29 08/04/18 12:33 08/04/18 15:21 Temperature 98.0 F Pulse Rate 82 88 Respiratory Rate 16 Blood Pressure 90/55 L 90/56 L 128/80 Pulse Oximetry 94 L 96 08/04/18 16:00 08/04/18 19:18 08/05/18 00:00 Temperature 97.8 F 97.9 F Pulse Rate 78 69 Respiratory Rate 20 17 16 Blood Pressure 132/82 133/71 Pulse Oximetry 96 97 08/05/18 03:35 08/05/18 04:00 08/05/18 07:31 Temperature 98.0 F Pulse Rate 73 64 76 Respiratory Rate 16 20 Blood Pressure 132/77 Pulse Oximetry 95 97 08/05/18 08:04 Temperature 98.3 F Pulse Rate 89 Respiratory Rate 20 Blood Pressure 110/68 Pulse Oximetry 93 L Intake & Output 08/04/18 08/05/18 08/05/18 18:59 06:59 18:59 Intake Total 1999 950 / 950 Output Total 250 / 250 Balance 1999 700 / 700 Intake: IV 1999 NS Inj 1,000 ML @ 100 mls/hr IV 1000 / 1000 .CONT .Q10H LILIANA Rx#:[id number] Oral 950 / 950 Output: Emesis 250 / 250 Other: # Voids 4 Date of Last Bowel Movement 08/03/18 # Bowel Movements 2 3 - Constitutional no acute distress, thin, chronically ill appearing, cooperative - Routine HEENT Exam Head: Present: normocephalic - Routine Respiratory Exam Present: CTA bilaterally. Absent: respiratory distress, wheezes - Routine Cardiovascular Exam Present: RRR, S1, S2 - Routine Abdominal Exam Present: soft, normoactive bowel sounds. Absent: tenderness, distended, guarding, firm - Routine Extremities Exam Present: pulses intact. Absent: edema - Routine Skin Exam Present: dry, warm - Routine Neurological Exam Present: alert Results - Labs CBC & Chem 7: 08/04/18 08:50 08/04/18 08:56 Laboratory Results - last 24 hr 08/04/18 08/04/18 08/04/18 08:56 15:40 21:13 Total Creatine Kinase 78 101 Troponin I Less than 0.02 L 0.03 Amylase 55 Lipase 305 Tumor Marker AFP Carcinoembryonic Ag CA 19-9 Antigen Vitamin D 25-Hydroxy 20.8 L 08/04/18 08/04/18 08/05/18 21:13 21:13 04:36 Total Creatine Kinase 87 Troponin I 0.09 H Amylase Lipase Tumor Marker AFP 6.5 Carcinoembryonic Ag 3.6 CA 19-9 Antigen 28.5 Vitamin D 25-Hydroxy Microbiology 08/03/18 15:51 Blood - Peripheral Aerobic Blood Culture - Preliminary No growth in 2 days 08/03/18 15:51 Blood - Peripheral Anaerobic Blood Culture - Preliminary No growth in 2 days 08/03/18 18:48 Clean Catch Urine Urine Culture - Final No growth in 48 hours - Imaging Impressions Chest X-Ray 08/05/18 00:00 CONCLUSION: Abnormal right lung. Considerations would include inflammatory process right base. Assessment and Plan - Plan Assessment Dysphagia-seen by ENT for same at this hospital in July [address] of her neck done which showed small loculated air in the right tonsillar region, possibly a small tonsillar abscess without significant fluid accumulation identified. There is no airway obstructing lesions or adenopathy. She underwent direct laryngoscopy with esophagoscopy which showed no evidence of lesions involving the hypopharynx and endolarynx. 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 No signs of inflammation or infection in the base of the tongue, vallecula and piriform sinuses, endolarynx, hypopharynx or cervical esophagus. She states she was advised by the ENT to follow-up with gastroenterology for an EGD. Has never had EGD. Unintentional weight losspatient reports a 51 pound weight loss over the past 6 months. She attributes this to decreased appetite, early satiety and overall weakness. Patient with advanced COPD which is likely contributing to her symptoms, she states that she is unable to finish a meal without becoming progressively short of breath. 08/05/2018 Patient endorses significant weight loss of 50 pounds over the last 5-6 months. Long-standing history of COPD with decreased appetite. Reports intermittent abdominal cramping and pressure Denies any nausea or vomiting Lipase 305 amylase 55 AFP 6.5 CA 3.6 CA 199 28.5 Presently patient tolerating O2 2 L nasal cannula without reported difficulty or noted distress Plan -Clear liquid diet -EGD when patient cleared by pulmonology -CT abdomen and pelvis pending-patient states she is agreeable at this time to have CT done -Supportive care -Further recommendations to follow This patient has been seen by myself and Dr. Morales and this note is written on his behalf - Attending Attestation Dr. Morales
--- NOTE | 2018-08-05 11:41 | XR ---
EXAM DATE: 08/05/2018 11:37 AM EST AGE/SEX: 53 years / Female INDICATIONS: Lower back pain from unknown injury. CLINICAL DATA: This is the patient's initial encounter. Patient reports that signs and symptoms have been present for 3 days and indicates a pain score of 7/10. MEDICAL/SURGICAL HISTORY: . carcinoma of throat. None. COMPARISON: No prior exams available for comparison. FINDINGS: Moderate loss of disc space height at L5-S1. Minimal loss of disc space height at L1-2. Moderate degenerative changes of facets. SI joints are normal. CONCLUSION: Mild degenerative changes otherwise negative Electronically signed by: Yg Villalta MD Board Certified Radiologist 08/05/2018 11:40 AM EST
--- NOTE | 2018-08-05 11:42 | XR ---
EXAM DATE: 08/05/2018 11:38 AM EST AGE/SEX: 53 years / Female INDICATIONS: Upper back pain from unknown injury. CLINICAL DATA: This is the patient's initial encounter. Patient reports that signs and symptoms have been present for 3 days and indicates a pain score of 2/10. MEDICAL/SURGICAL HISTORY: . carcinoma of throat. None. [place] [facility] [place]. . FINDINGS: A single view of the spine was performed. There is normal alignment of the vertebral bodies without evidence of subluxation. Vertebral body height and disc space height is maintained. CONCLUSION: Negative. Endplates and disc spaces well-preserved. Electronically signed by: Yg Villalta MD Board Certified Radiologist 08/05/2018 11:40 AM EST
--- NOTE | 2018-08-05 13:40 | CT ---
EXAM DATE: 08/05/2018 1:08 PM EST AGE/SEX: 53 years / Female INDICATIONS: Nausea vomiting Shortness of breath abdomen pain. CLINICAL DATA: This is the patient's initial encounter. Patient reports that signs and symptoms have been present for 1 day and indicates a pain score of 3/10. MEDICAL/SURGICAL HISTORY: None. None. ORAL CONTRAST: No oral contrast ingested. RADIATION DOSE: 6.64 CTDI (mGy) COMPARISON: No prior exams available for comparison. TECHNIQUE: Multiple contiguous axial images were obtained through the abdomen and pelvis following b olus infusion of 75 ml Omnipaque 350 (iohexol) nonionic water-soluble contrast as a single exam dos e. No oral contrast ingested. Using automated exposure control and adjustment of the mA and/or kV ac cording to patient size, radiation dose was kept as low as reasonably achievable to obtain optimal di agnostic quality images. DICOM format image data is available electronically for review and comparis on. FINDINGS: LOWER LUNGS: Interval development of subtle trace left and small right pleural effusions. LIVER: Diffuse periportal low density "halos". No definitive intrahepatic ductal dilatation or signi ficant hepatic volume loss. There is very prominent gallbladder wall thickening. SPLEEN: Homogeneous density without enlargement. PANCREAS: Unremarkable without mass or calcification. KIDNEYS: Kidneys demonstrate symmetrical enhancement without evidence for hydronephrosis or radiopaq ue renal calculi. Subcentimeter hypodense cystic lesion in the inferior pole the right kidney is too small to fully characterize. ADRENAL GLANDS: Unremarkable. AORTA: Sandi-aneurysmal. BOWEL/MESENTERY: Bowel loops are grossly unremarkable. No significantly dilated loops of bowel. Diff use mesenteric edema with trace ascites in the deep pelvis. No pneumatosis or free air. ABDOMINAL WALL: Intact. RETROPERITONEUM: No evidence of adenopathy in the retrocrural, para-aortic, or deep pelvic regions. BLADDER: Contours are smooth. REPRODUCTIVE: No abnormal masses or calcifications seen. BONY STRUCTURES: Schmorl's nodes at L2 and T10. No focal lytic or blastic bony lesions. CONCLUSION: 1. Findings most consistent with diffuse periportal edema. Although nonspecific, differential consid erations would include acute hepatitis versus congestive hepatopathy. 2. Pronounced diffuse gallbladder wall thickening. Suspect this reflects severe hypoalbuminemia or c ongestion or liver disease. However, this significantly limits imaging evaluation for cholecystitis. Clinical correlation is recommended. 3. Short interval development of trace left and small right pleural effusions. Electronically signed by: Tim Garcia MD Board Certified Radiologist 08/05/2018 1:39 PM EST
--- NOTE | 2018-08-05 14:58 | P.DIET ---
Nutritional Evaluation Type of nutrition evaluation: initial Nutrition consult regarding: Diet Evaluation Nutrition screening: Weight Loss > 10 lbs, MDC (malnutrition) Screening comments: 08/03/18 MDC for Malnutrition 08/04/18 WLS Objective - Diagnosis hypoxia, emphysema - Objective Body Mass Index: 27.5 % IBW: 129 (IBW = 140lb) Body Weight Used for Calculations: Actual (82kg) Energy Needs - Lower Range (kCal/kg): 25 Energy Needs - Upper Range (kCal/kg): 30 Lower Limit kCal/kg (kCals): 2,050 Upper Limit kCal/kg (kCals): 2,460 Lower Limit Protein Factor (Grams per Kg): 1.1 Upper Limit Protein Factor (Grams per Kg): 1.3 Lower Protein Needs (Protein): 90 Upper Protein Needs (Protein): 107 Dietitian Reviewed in Medical Record: Current diet, Curent medications, Intake & Output, Labs, Medical history Diet Order: Clear liquid diet Oral Diet Intake Amount: Poor <50% Objective Comments: PMH: smoker, throat CA LBM 08/03 GI: abdominal distention w/gas Assessment Assessment: Pt currently at nutritional risk r/t reported malnutrition and severe wt loss. Pt reportedly said that she had lost 50lb within the last 3 months d/t having poor PO intake prior to admission. Pt has advanced COPD and emphysema per MD note pt unable to finish a meal without getting SOB. Pt had dysphagia as well in previous charts but said is doing fine now w/ swallowing. Pt currently on clear liquid diet for EGD, now pending for pt until cleared by pulmonology. RD to recommend Ensure Clear BID as PO supplement for additional nutrition. Continue to monitor for diet advancement, PO and supplement intake. Labs reviewed, dietitian following. Recommendations: 1. RD to recommend Ensure Clear BID as PO supplement for additional nutrition 2. Continue to monitor for diet advancement, PO and supplement intake 3. Dietitian following Dietitian to Monitor: Lab values, Supplement acceptance, Intake & Output, Diet tolerance, Weight change, PO Intake, Diet advancement, Medical course
--- NOTE | 2018-08-05 15:48 | P.PNIM ---
Subjective Interval history: Follow-up on patient with COPD exacerbation, FTT, severe weight loss. Patient seen and examined. Late yesterday patient developed complaints of nausea, vomiting and midsternal chest pain. She denies any chest pain at present. Patient complaining of cramping lower abdominal pain. She does report good bowel movement yesterday. She denies any black/bloody/tarry stools. She denies any complaints of dysuria. She is asking for hydrocodone. She denies any nausea or vomiting. She states her breathing has improved she is now down to 2 L via NC. She still gets short of breath with minimal exertion. Patient is agreeable to CT of abdomen and pelvis today. Physical Exam Vital signs: Last Vital Signs Temp 98.3 F 08/05/18 08:04 Pulse 89 08/05/18 08:04 Resp 16 08/05/18 12:00 BP 110/68 08/05/18 12:00 Pulse Ox 93 L 08/05/18 08:04 Intake & Output 08/03/18 08/04/18 08/05/18 08/06/18 06:59 06:59 06:59 06:59 Intake Total 1100 / 1100 2950 / 2950 100 / 100 Output Total 250 / 250 Balance 1100 / 1100 2700 / 2700 100 / 100 Weight 82 kg Narrative: GENERAL: Thin cachectic ill-appearing pleasant middle-aged female patient, no acute distress. Awake and alert. SKIN: Warm and dry. No generalized rash. HEENT: Atraumatic. Normocephalic. Pupils equal and round. No scleral icterus. No injection or drainage. No nasal bleeding or discharge. Mucous membranes pink and moist. NECK: Trachea midline. CARDIOVASCULAR: Regular rate and rhythm. No obvious murmurs auscultated. RESPIRATORY: No accessory muscle use. Improved air movement. No wheezing noted on exam. GASTROINTESTINAL: Abdomen soft, non-tender, nondistended. +BS. MUSCULOSKELETAL: Extremities without clubbing, cyanosis, or edema. No obvious deformities. Tenderness to palpation thoracic and lumbar paraspinous muscles. Decreased range of motion. NEUROLOGICAL: Awake and alert. No obvious cranial nerve deficits. Able to move all extremities spontaneously. Normal speech. PSYCHIATRIC: Appropriate mood and affect; insight and judgment normal. Results Labs CBC & Chem 7: 08/06/18 06:15 08/06/18 06:15 Labs: Microbiology 08/03/18 15:51 Blood - Peripheral Aerobic Blood Culture - Preliminary No growth in 2 days 08/03/18 15:51 Blood - Peripheral Anaerobic Blood Culture - Preliminary No growth in 2 days 08/03/18 18:48 Clean Catch Urine Urine Culture - Final No growth in 48 hours Imaging Imaging: Impressions Abdomen/Pelvis CT 08/05/18 00:00 CONCLUSION: 1. Findings most consistent with diffuse periportal edema. Although nonspecific , differential considerations would include acute hepatitis versus congestive hepatopathy. 2. Pronounced diffuse gallbladder wall thickening. Suspect this reflects severe hypoalbuminemia or congestion or liver disease. However, this significantly limits imaging evaluation for cholecystitis. Clinical correlation is recommended. 3. Short interval development of trace left and small right pleural effusions. Chest X-Ray 08/05/18 00:00 CONCLUSION: Abnormal right lung. Considerations would include inflammatory process right base. Lumbar Spine X-Ray 08/05/18 00:00 CONCLUSION: Mild degenerative changes otherwise negative Thoracic Spine X-Ray 08/05/18 00:00 CONCLUSION: Negative. Endplates and disc spaces well-preserved. Assessment and Plan Plan 53-year-old female with a PMH of COPD and h/o Dysphagia who presented to the ER w/ complaints of SOB in addition to severe weakness. COPD: w/ Acute moderate to severe exacerbation Acute on chronic hypoxic respiratory failure: S/p Solu-Medrol and DuoNeb w/ some improvement. CXR/CTA Chest negative for acute PE, +severe emphysematous changes. Repeat CXR 1/2 shows mild interstitial changes in the right lung with trace pleural effusion probably early consolidation in the right base. Left lung is clear. -Pulmonary medicine following, appreciate assistance. Started on ceftriaxone and azithromycin. -Continue Solu-Medrol -Continue on Symbicort -Continue on Mucinex -Continue on scheduled DuoNeb treatments -Continue on supplemental oxygen as needed -Continue to monitor respiratory status PNA repeat CXR concerning for pneumonia right lung base -Started on azithromycin. Ceftriaxone resumed. -Sputum culture ordered -Continue with treatment as above FTT: reports unintentional 50lb weight loss in last 3mo, +decreased PO intake, feels "full", +abdominal distention/gas, h/o dysphagia s/p laryngoscopy by Dr. Zuñiga 07/25/17 which was negative for lesions. Advanced COPD likely contributing to patient's weight loss N/V, abdominal pain CXR/CTA Chest w/ no nodules/mass. Last PAP 2yrs ago reports normal. CT the abdomen/pelvis shows diffuse periportal edema, diffuse gallbladder wall thickening. -GI following, appreciate assistance. Recommends EGD once patient cleared by pulmonology. -Nausea/vomiting resolved. Advance diet. -possible HIDA scan Chest pain, atypical, resolved Elevated troponin Patient developed complaints of midsternal chest pain yesterday. Initial troponins were negative the last troponin was elevated 0.09. Suspect secondary to demand ischemia EKG unremarkable -Repeat troponin level -No events on telemetry -Obtain 2D echocardiogram Dehydration: Hemoconcentrated w/ Hgb 18, due to decreased PO intake -resolved, d/c IVF Back pain: Suspect secondary to profound weight loss Imaging reveals mild degenerative changes otherwise negative -Kite prn. K thermia. Patient did not tolerate Lidoderm patch. -Continue with PT DVT Prophylaxis: SCD/Teds Progress Note: Quality VTE Deep Vein Thrombosis/Pulmonary Embolism Present on Admission: No
[2018-08-05 17:30] LABS: Alanine Aminotransferase 45 U/L (10-53); Albumin 3.1 g/dL (3.4-5.0); Alkaline Phosphatase 81 U/L (45-117); Anion Gap 8 meq/L (5-15); Aspartate Aminotransferase 39 U/L (15-37); Blood Urea Nitrogen 9 mg/dL (7-18); Calcium 8.7 mg/dL (8.5-10.1); Carbon Dioxide 26.5 meq/L (21.0-32.0); Chloride 105 meq/L (98-107); Glomerular Filtration Rate Greater Than 89 mL/min (>89); Glucose,Random 94 mg/dL (74-106); Potassium 3.7 meq/L (3.5-5.1); Sodium 139 meq/L (136-145)
--- NOTE | 2018-08-05 20:07 | ECHRPT ---
Indication: Cardiomyopathy CONCLUSIONS Normal left ventricular size. Wall thickness is normal. The left ventricular systolic function is hy perdynamic with an estimated ejection fraction in the range of 65-70%. No regional wall motion abnormalities are present. Normal valves. BP: / HR: Rhythm: Technical Quality:Fair FINDINGS LEFT VENTRICLE Normal left ventricular size. Wall thickness is normal. The left ventricular systolic function is hy perdynamic with an estimated ejection fraction in the range of 65-70%. No regional wall motion abnormalities are present. RIGHT VENTRICLE Normal right ventricular size and systolic function. LEFT ATRIUM The left atrial size is normal. RIGHT ATRIUM The right atrial size is normal. ATRIAL SEPTUM Normal atrial septal thickness without atrial level shunting by limited color doppler interrogation. AORTA The aortic root and proximal ascending aorta are normal in size on limited imaging. MITRAL VALVE Structurally normal mitral valve. No mitral valve stenosis or regurgitation. AORTIC VALVE Trileaflet aortic valve. No aortic valve stenosis or regurgitation. TRICUSPID VALVE Structurally normal tricuspid valve. No tricuspid valve stenosis or regurgitation. PULMONARY VALVE The pulmonary valve is not well visualized. VESSELS The inferior vena cava is normal in size. PERICARDIUM No pericardial effusion. Joseph Hernandez MD (Electronically Signed) Final Date:05 August 2018 20:06
[2018-08-05] MEDS: clonazePAM 0.5 MG Tablet PO PRN (20:50)
[2018-08-05 22:23] LABS: Hepatitis A IgM Antibody Nonreactive (Nonreactive); Hepatitits B Surface Antigen Nonreactive (Nonreactive)
[2018-08-06] MEDS: MethylPREDNISolone Sod Succinate Inj 40 MG/ML Vial IV.PUSH SCH ×4 (02:15→23:03)
[2018-08-06 07:29] LABS: Baso % (Auto) 0.1 % (0.0-2.0); Hematocrit 48.5 % (35.0-46.0); Hemoglobin 16.6 gm/dL (11.6-15.3); Lymph # (Auto) 1.7 th/mm3 (1.0-4.8); Lymph % (Auto) 10.2 % (9.0-44.0); Mean Corpuscular HGB Conc 34.3 % (32.0-36.0); Mean Corpuscular Hemoglobin 31.9 pg (27.0-34.0); Mono # (Auto) 0.8 th/mm3 (0.0-0.9); Mono % (Auto) 4.6 % (0.0-8.0); Neut # (Auto) 14.4 th/mm3 (1.8-7.7); Neut % (Auto) 85.1 % (16.0-70.0); Platelet Count 145 th/mm3 (150-450); Red Blood Count 5.22 mil/mm3 (4.00-5.30); Red Cell Distribution Width 14.5 % (11.6-17.2); White Blood Count 16.9 th/mm3 (4.0-11.0)
[2018-08-06 07:52] LABS: Alanine Aminotransferase 42 U/L (10-53); Albumin 3.3 g/dL (3.4-5.0); Anion Gap 8 meq/L (5-15); Aspartate Aminotransferase 29 U/L (15-37); Blood Urea Nitrogen 10 mg/dL (7-18); Calcium 8.6 mg/dL (8.5-10.1); Carbon Dioxide 26.2 meq/L (21.0-32.0); Chloride 104 meq/L (98-107); Glomerular Filtration Rate Greater Than 89 mL/min (>89); Glucose,Random 64 mg/dL (74-106); Potassium 3.9 meq/L (3.5-5.1); Sodium 138 meq/L (136-145)
[2018-08-06 07:54] LABS: Alkaline Phosphatase 93 U/L (45-117); Total Protein 6.5 g/dL (6.4-8.2)
--- NOTE | 2018-08-06 09:32 | NM ---
EXAM DATE: 08/06/2018 9:09 AM EST AGE/SEX: 53 years / Female INDICATIONS: Abdominal pain with nausea and vomiting. CLINICAL DATA: This is the patient's initial encounter. Patient reports that signs and symptoms have been present for 1 day and indicates a pain score of 6/10. MEDICAL/SURGICAL HISTORY: . Throat cancer. section. Tubal ligation. COMPARISON: [facility] [place], CT ABDOMEN & PELVIS W CONTRAST, 08/05/2018. . DOSE: 4.4 mCi Tc-99m mebrofenin i.v. TECHNIQUE: Following the intravenous administration of radiotracer, dynamic sequential images were pe rformed with continuous acquisition. Time-activity curves were generated. FINDINGS: Hepatic Kinetics: There is prompt uptake of radiotracer in the liver. No focal defects are seen. T here is normal rate of washout from the hepatic parenchyma. Biliary Clearance: Activity is first seen in the extrahepatic biliary system at 15 minutes. There i s normal excretion into the small bowel. Gallbladder: Activity is first seen in the gallbladder at 20 minutes. Biliary-Enteric Reflux: None observed. CONCLUSION: There is normal filling of the gallbladder which excludes cystic duct obstruction. Electronically signed by: Jono Carvajal MD Board Certified Radiologist 08/06/2018 9:30 AM EST
[2018-08-06] MEDS: Senna/Docusate Sodium 8.6/50 MG Tablet PO SCH ×2 (09:33→20:46)
[2018-08-06] MEDS: guaiFENesin 600 MG ER Tablet PO SCH ×2 (09:33→20:48)
[2018-08-06] MEDS: Azithromycin 250 MG Tablet PO SCH (09:36)
[2018-08-06] MEDS: Heparin - SQ 10,000 UNITS/ML Vial SQ SCH ×2 (09:39→20:46)
[2018-08-06] MEDS: Lidocaine 5% Patch T-DERMAL SCH (09:39)
[2018-08-06] MEDS: Budesonide-Formoterol 160/4.5 MCG 6 GM Inhaler INH SCH ×2 (09:40→20:49)
[2018-08-06] MEDS: clonazePAM 0.5 MG Tablet PO PRN ×2 (10:49→17:54)
--- NOTE | 2018-08-06 10:54 | P.PNPL ---
Subjective Interval history: Patient is on 2L oxygen, breathing better. Afebrile. Physical Exam Vital signs: Vital Signs 08/05/18 12:00 08/05/18 15:52 08/05/18 16:38 Temperature 98.6 F Pulse Rate 86 84 Respiratory Rate 16 15 20 Blood Pressure 110/68 99/60 L Pulse Oximetry 94 L 08/05/18 20:00 08/06/18 00:00 08/06/18 02:13 Temperature 98.1 F 98 F Pulse Rate 69 66 Respiratory Rate 22 16 18 Blood Pressure 140/96 H 142/83 H Pulse Oximetry 97 96 08/06/18 04:00 08/06/18 08:00 Temperature 98.2 F 98.2 F Pulse Rate 65 69 Respiratory Rate 18 25 H Blood Pressure 146/83 H 144/82 H Pulse Oximetry 95 94 L Intake & Output 08/05/18 08/06/18 08/06/18 18:59 06:59 18:59 Intake Total 1100 / 1100 100 / 100 Balance 1100 / 1100 100 / 100 Intake: IV 1100 / 1100 100 / 100 NS Inj 1,000 ML @ 42 mls/hr IV. 1000 / 1000 CONT .[id number] [facility] Rx#:[id number] Rocephin Inj 1,000 MG In NS Inj 100 / 100 100 / 100 100 ML @ 200 mls/hr IV.SIG Q24H [facility] Rx#:[id number] Other: # Voids 2 4 Date of Last Bowel Movement 08/04/18 08/04/18 - Constitutional no acute distress - Routine HEENT Exam Head: Present: normocephalic, atraumatic Eye: Present: EOMI, PERRL, normal accommodation, conjunctivae pink ENT: Present: mucous membranes moist - Routine Neck Exam Present: supple, full ROM, trachea midline - Routine Respiratory Exam Present: CTA bilaterally - Routine Cardiovascular Exam Present: RRR, S1, S2 - Routine Abdominal Exam Present: soft, normoactive bowel sounds - Routine Extremities Exam Present: full ROM, pulses intact - Routine Skin Exam Present: intact, dry - Routine Neurological Exam Present: alert, oriented X3, CN II-XII intact Assessment and Plan - Plan 1. Respiratory insufficiency. 2. COPD exacerbation. 3. Tobacco abuse. 4. Urinary tract infection. 5. Failure to thrive. Plan Continue with oxygen and maintain sats >2%. Bronchodilators ( DuoNeb, Symbicort) Decrease Solu-Medrol 40 mg IV q. 12 BiPAP p.r.n. for respiratory distress. CTA chest showed no evidence of pulmonary embolism, COPD changes. CXR /: Mild interstitial changes in the right lung with trace pleural effusion and probable early consolidation right base. Left lung clear Abx- Rocephin 1 gram IV daily, Azithromycin. Check sputum cx. Nasal washing negative for Influenza on 08/03 Check PFT to asses severity of her obstructive lung disease Patient is at high risk for perioperative complications giving her likely mod- severe obstructive lung disease Assess for home oxygen with a 6-minute walk test prior to discharge. Diurese with Lasix 20mg IV x1 monitor for signs of fluid overload. GI is following for dysphagia, GI/DVT prophylaxis. on heparin subcutaneously.
--- NOTE | 2018-08-06 10:57 | P.PNGI ---
Subjective Interval history: Pt is resting in bed. She continues to complain of upper abdominal pain. Denies nausea, vomiting. No BM. <RoseanneJlilian - Last Filed: 08/06/18 10:50> Physical Exam Vital signs: Vital Signs 08/05/18 12:00 08/05/18 15:52 08/05/18 16:38 Temperature 98.6 F Pulse Rate 86 84 Respiratory Rate 16 15 20 Blood Pressure 110/68 99/60 L Pulse Oximetry 94 L 08/05/18 20:00 08/06/18 00:00 08/06/18 02:13 Temperature 98.1 F 98 F Pulse Rate 69 66 Respiratory Rate 22 16 18 Blood Pressure 140/96 H 142/83 H Pulse Oximetry 97 96 08/06/18 04:00 08/06/18 08:00 Temperature 98.2 F 98.2 F Pulse Rate 65 69 Respiratory Rate 18 25 H Blood Pressure 146/83 H 144/82 H Pulse Oximetry 95 94 L Intake & Output 08/05/18 08/06/18 08/06/18 18:59 06:59 18:59 Intake Total 1100 / 1100 100 / 100 Balance 1100 / 1100 100 / 100 Intake: IV 1100 / 1100 100 / 100 NS Inj 1,000 ML @ 42 mls/hr IV. 1000 / 1000 CONT .[id number] REPLACED BY [facility] Rx#:[id number] Rocephin Inj 1,000 MG In NS Inj 100 / 100 100 / 100 100 ML @ 200 mls/hr IV.SIG Q24H REPLACED BY [facility] Rx#:[id number] Other: # Voids 2 4 Date of Last Bowel Movement 08/04/18 08/04/18 - Constitutional no acute distress - Routine HEENT Exam Head: Present: normocephalic, atraumatic - Routine Respiratory Exam Present: decreased breath sounds, wheezes. Absent: accessory muscle use - Routine Abdominal Exam Present: soft, normoactive bowel sounds. Absent: tenderness, distended - Routine Skin Exam Present: dry, warm - Routine Neurological Exam Present: alert, oriented X3 <BettieJillian parsons - Last Filed: 08/06/18 10:50> Vital signs: Vital Signs 08/05/18 15:52 08/05/18 16:38 08/05/18 20:00 Temperature 98.6 F 98.1 F Pulse Rate 86 84 69 Respiratory Rate 15 20 22 Blood Pressure 99/60 L 140/96 H Pulse Oximetry 94 L 97 08/06/18 00:00 08/06/18 02:13 08/06/18 04:00 Temperature 98 F 98.2 F Pulse Rate 66 65 Respiratory Rate 16 18 18 Blood Pressure 142/83 H 146/83 H Pulse Oximetry 96 95 08/06/18 08:00 08/06/18 11:19 Temperature 98.2 F 98.7 F Pulse Rate 69 75 Respiratory Rate 25 H 20 Blood Pressure 144/82 H 149/80 H Pulse Oximetry 96 95 Intake & Output 08/05/18 08/06/18 08/06/18 18:59 06:59 18:59 Intake Total 1100 / 1100 100 / 100 Balance 1100 / 1100 100 / 100 Intake: IV 1100 / 1100 100 / 100 NS Inj 1,000 ML @ 42 mls/hr IV. 1000 / 1000 CONT .[id number] [facility] Rx#:[id number] Rocephin Inj 1,000 MG In NS Inj 100 / 100 100 / 100 100 ML @ 200 mls/hr IV.SIG Q24H [facility] Rx#:[id number] Other: # Voids 2 4 Date of Last Bowel Movement 08/04/18 08/04/18 <Katelyn Lopez A - Last Filed: 08/06/18 15:38> Results - Labs CBC & Chem 7: 08/06/18 06:15 08/06/18 06:15 Laboratory Results - last 24 hr 08/05/18 08/05/18 08/05/18 16:20 16:20 16:20 WBC RBC Hgb Hct MCV MCH MCHC RDW Plt Count MPV Neut % (Auto) Lymph % (Auto) Tift % (Auto) Eos % (Auto) Baso % (Auto) Neut # (Auto) Lymph # (Auto) Tift # (Auto) Eos # (Auto) Baso # (Auto) WBC Differential Differential Comment Sodium 139 Potassium 3.7 Chloride 105 Carbon Dioxide 26.5 Anion Gap 8 BUN 9 Creatinine 0.46 L Estimated GFR Greater than 89 Random Glucose 94 Calcium 8.7 Total Bilirubin 0.4 AST 39 H ALT 45 Alkaline Phosphatase 81 Troponin I 0.04 Total Protein 6.0 L Albumin 3.1 L Hepatitis A IgM Ab Nonreactive Hep Bs Antigen Nonreactive Hep B Core IgM Ab Nonreactive Hep C IgG Ab Nonreactive 08/06/18 08/06/18 06:15 06:15 WBC 16.9 H RBC 5.22 Hgb 16.6 H Hct 48.5 H MCV 93.0 D MCH 31.9 MCHC 34.3 RDW 14.5 Plt Count 145 L MPV 9.0 Neut % (Auto) 85.1 H Lymph % (Auto) 10.2 Tift % (Auto) 4.6 Eos % (Auto) 0.0 Baso % (Auto) 0.1 Neut # (Auto) 14.4 H Lymph # (Auto) 1.7 Tift # (Auto) 0.8 Eos # (Auto) 0.0 Baso # (Auto) 0.0 WBC Differential . Differential Comment Auto diff final Sodium 138 Potassium 3.9 Chloride 104 Carbon Dioxide 26.2 Anion Gap 8 BUN 10 Creatinine 0.43 L Estimated GFR Greater than 89 Random Glucose 64 L Calcium 8.6 Total Bilirubin 0.6 AST 29 ALT 42 Alkaline Phosphatase 93 Troponin I Total Protein 6.5 Albumin 3.3 L Hepatitis A IgM Ab Hep Bs Antigen Hep B Core IgM Ab Hep C IgG Ab Microbiology 08/03/18 15:51 Blood - Peripheral Aerobic Blood Culture - Preliminary No growth in 2 days 08/03/18 15:51 Blood - Peripheral Anaerobic Blood Culture - Preliminary No growth in 2 days 08/03/18 18:48 Clean Catch Urine Urine Culture - Final No growth in 48 hours - Imaging Impressions Abdomen/Pelvis CT 08/05/18 00:00 CONCLUSION: 1. Findings most consistent with diffuse periportal edema. Although nonspecific , differential considerations would include acute hepatitis versus congestive hepatopathy. 2. Pronounced diffuse gallbladder wall thickening. Suspect this reflects severe hypoalbuminemia or congestion or liver disease. However, this significantly limits imaging evaluation for cholecystitis. Clinical correlation is recommended. 3. Short interval development of trace left and small right pleural effusions. Lumbar Spine X-Ray 08/05/18 00:00 CONCLUSION: Mild degenerative changes otherwise negative Thoracic Spine X-Ray 08/05/18 00:00 CONCLUSION: Negative. Endplates and disc spaces well-preserved. Hepatobiliary Scan Nuclear Medicine 08/06/18 00:00 CONCLUSION: There is normal filling of the gallbladder which excludes cystic duct obstruction. <Jillian Cronin - Last Filed: 08/06/18 10:50> - Labs CBC & Chem 7: 08/06/18 06:15 08/06/18 06:15 Laboratory Results - last 24 hr 08/05/18 08/05/18 08/05/18 16:20 16:20 16:20 WBC RBC Hgb Hct MCV MCH MCHC RDW Plt Count MPV Neut % (Auto) Lymph % (Auto) Tift % (Auto) Eos % (Auto) Baso % (Auto) Neut # (Auto) Lymph # (Auto) Tift # (Auto) Eos # (Auto) Baso # (Auto) WBC Differential Differential Comment Sodium 139 Potassium 3.7 Chloride 105 Carbon Dioxide 26.5 Anion Gap 8 BUN 9 Creatinine 0.46 L Estimated GFR Greater than 89 Random Glucose 94 Calcium 8.7 Total Bilirubin 0.4 AST 39 H ALT 45 Alkaline Phosphatase 81 Troponin I 0.04 Total Protein 6.0 L Albumin 3.1 L Hepatitis A IgM Ab Nonreactive Hep Bs Antigen Nonreactive Hep B Core IgM Ab Nonreactive Hep C IgG Ab Nonreactive 08/06/18 08/06/18 06:15 06:15 WBC 16.9 H RBC 5.22 Hgb 16.6 H Hct 48.5 H MCV 93.0 D MCH 31.9 MCHC 34.3 RDW 14.5 Plt Count 145 L MPV 9.0 Neut % (Auto) 85.1 H Lymph % (Auto) 10.2 Tift % (Auto) 4.6 Eos % (Auto) 0.0 Baso % (Auto) 0.1 Neut # (Auto) 14.4 H Lymph # (Auto) 1.7 Tift # (Auto) 0.8 Eos # (Auto) 0.0 Baso # (Auto) 0.0 WBC Differential . Differential Comment Auto diff final Sodium 138 Potassium 3.9 Chloride 104 Carbon Dioxide 26.2 Anion Gap 8 BUN 10 Creatinine 0.43 L Estimated GFR Greater than 89 Random Glucose 64 L Calcium 8.6 Total Bilirubin 0.6 AST 29 ALT 42 Alkaline Phosphatase 93 Troponin I Total Protein 6.5 Albumin 3.3 L Hepatitis A IgM Ab Hep Bs Antigen Hep B Core IgM Ab Hep C IgG Ab Microbiology 08/03/18 15:51 Blood - Peripheral Aerobic Blood Culture - Preliminary No growth in 3 days 08/03/18 15:51 Blood - Peripheral Anaerobic Blood Culture - Preliminary No growth in 3 days - Imaging Impressions Hepatobiliary Scan Nuclear Medicine 08/06/18 00:00 CONCLUSION: There is normal filling of the gallbladder which excludes cystic duct obstruction. <Katelyn Lopez - Last Filed: 08/06/18 15:38> Assessment and Plan - Plan Assessment Dysphagia-seen by ENT for same at this hospital in July [address] of her neck done which showed small loculated air in the right tonsillar region, possibly a small tonsillar abscess without significant fluid accumulation identified. There is no airway obstructing lesions or adenopathy. She underwent direct laryngoscopy with esophagoscopy which showed no evidence of lesions involving the hypopharynx and endolarynx. 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 No signs of inflammation or infection in the base of the tongue, vallecula and piriform sinuses, endolarynx, hypopharynx or cervical esophagus. She states she was advised by the ENT to follow-up with gastroenterology for an EGD. Has never had EGD. Unintentional weight losspatient reports a 51 pound weight loss over the past 6 months. She attributes this to decreased appetite, early satiety and overall weakness. Patient with advanced COPD which is likely contributing to her symptoms, she states that she is unable to finish a meal without becoming progressively short of breath. CT abdomen and pelvis (08/05/18) Findings most consistent with diffuse periportal edema. Although nonspecific, differential considerations would include acute hepatitis versus congestive hepatopathy. Pronounced diffuse gallbladder wall thickening. Suspect this reflects severe hypoalbuminemia or congestion or liver disease. However, this significantly limits imaging evaluation for cholecystitis. Clinical correlation is recommended. Short interval development of trace left and small right pleural effusions. HIDA scan --> normal (08/06/18) Per pulmonology, pt is moderate to severe risk for EGD but this will likely not change. Patient understands risks and wants to proceed with EGD. She is NPO this morning. Anesthesia to evaluate and determine if EGD can be done. Plan EGD today if cleared by anesthesia Keep NPO Pulmonology following Discussed with SRAVAN Lubin Further recommendations to folow This patient has been seen and examined by myself and Dr. Lopez and this note is written on his behalf <Jillian Cronin - Last Filed: 08/06/18 10:50> - Attending Attestation Discussed with Dr Marshall from anesthesia, risk of anesthesia explained to the patient and her , will proceed in AM. <Katelyn Lopez - Last Filed: 08/06/18 15:38>
--- NOTE | 2018-08-06 16:44 | P.PNIM ---
Subjective Interval history: Follow-up on patient with COPD exacerbation, FTT. Patient seen and examined. Patient states that her breathing has improved. She is now down to 2 L via nasal cannula. She denies any complaints of chest pain. She is just returned from undergoing a HIDA scan. She continues to have very little oral intake. She continues to have complaints of abdominal pain however she denies any nausea or vomiting. Physical Exam Vital signs: Last Vital Signs Temp 97.7 F 08/06/18 16:00 Pulse 69 08/06/18 16:00 Resp 12 08/06/18 16:00 BP 130/80 08/06/18 16:00 Pulse Ox 95 08/06/18 16:00 Intake & Output 08/04/18 08/05/18 08/06/18 08/07/18 06:59 06:59 06:59 06:59 Intake Total 1100 / 1100 2950 / 2950 1100 / 1100 100 / 100 Output Total 250 / 250 Balance 1100 / 1100 2700 / 2700 1100 / 1100 100 / 100 Weight 82 kg Narrative: GENERAL: Thin cachectic ill-appearing pleasant middle-aged female patient, no acute distress. Awake and alert. SKIN: Warm and dry. No generalized rash. HEENT: Atraumatic. Normocephalic. Pupils equal and round. No scleral icterus. No injection or drainage. No nasal bleeding or discharge. Mucous membranes pink and moist. NECK: Trachea midline. CARDIOVASCULAR: Regular rate and rhythm. No obvious murmurs auscultated. RESPIRATORY: No accessory muscle use. Improved air movement. No wheezing noted on exam. GASTROINTESTINAL: Abdomen soft, non-tender, nondistended. +BS. MUSCULOSKELETAL: Extremities without clubbing, cyanosis, or edema. No obvious deformities. Tenderness to palpation thoracic and lumbar paraspinous muscles. Decreased range of motion. NEUROLOGICAL: Awake and alert. No obvious cranial nerve deficits. Able to move all extremities spontaneously. Normal speech. PSYCHIATRIC: Appropriate mood and affect; insight and judgment normal. Results Labs CBC & Chem 7: 08/06/18 06:15 08/06/18 06:15 Labs: Microbiology 08/03/18 15:51 Blood - Peripheral Aerobic Blood Culture - Preliminary No growth in 3 days 08/03/18 15:51 Blood - Peripheral Anaerobic Blood Culture - Preliminary No growth in 3 days Imaging Imaging: Impressions Hepatobiliary Scan Nuclear Medicine 08/06/18 00:00 CONCLUSION: There is normal filling of the gallbladder which excludes cystic duct obstruction. Assessment and Plan Plan 53-year-old female with a PMH of COPD and h/o Dysphagia who presented to the ER w/ complaints of SOB in addition to severe weakness. COPD: w/ Acute moderate to severe exacerbation Acute on chronic hypoxic respiratory failure: S/p Solu-Medrol and DuoNeb w/ some improvement. CXR/CTA Chest negative for acute PE, +severe emphysematous changes. Repeat CXR /2 shows mild interstitial changes in the right lung with trace pleural effusion probably early consolidation in the right base. Left lung is clear. -Pulmonary medicine following, appreciate assistance. Started on ceftriaxone and azithromycin, continue. Given Lasix IV 20 mg x1 dose, -Continue IV Solu-Medrol, started on taper by pulm -Continue on Symbicort -Continue on Mucinex -Continue on scheduled DuoNeb treatments -Continue on supplemental oxygen as needed -Continue to monitor respiratory status PNA repeat CXR concerning for pneumonia right lung base -Started on azithromycin. Ceftriaxone resumed. -Sputum culture ordered/pending -Continue with treatment as above FTT: reports unintentional 50lb weight loss in last 3mo, +decreased PO intake, feels "full", +abdominal distention/gas, h/o dysphagia s/p laryngoscopy by Dr. Zuñiga 07/25/17 which was negative for lesions. Advanced COPD likely contributing to patient's weight loss N/V, abdominal pain CXR/CTA Chest w/ no nodules/mass. Last PAP 2yrs ago reports normal. CT the abdomen/pelvis shows diffuse periportal edema, diffuse gallbladder wall thickening. HIDA scan negative -GI following, appreciate assistance. Recommends EGD once patient cleared by pulmonology. Patient is high risk for perioperative complications per pulmonary medicine. Patient evaluated by anesthesia. Plan for EGD tomorrow. -Nausea/vomiting resolved. Advance diet. -NPO after MN Chest pain, atypical, resolved Elevated troponin Patient developed complaints of midsternal chest pain yesterday. Initial troponins were negative the last troponin was elevated 0.09. Suspect secondary to demand ischemia EKG unremarkable 2D echo shows ejection fraction 65-70%, no wall motion abnormalities noted -Repeat troponin level WNL -No events on telemetry Leukocytosis -Steroid reaction -Monitor clinically Suspected bacterial vaginosis Patient complains of malodorous brownish discharge -Treat with metronidazole 500 mg twice daily x7 Back pain: Suspect secondary to profound weight loss Imaging reveals mild degenerative changes otherwise negative -Blue prn. K thermia. Patient did not tolerate Lidoderm patch. -Continue with PT DVT Prophylaxis: Heparin Progress Note: Quality VTE Deep Vein Thrombosis/Pulmonary Embolism Present on Admission: No
[2018-08-06] MEDS: metroNIDAZOLE 500 MG Tablet PO SCH (20:47)
--- NOTE | 2018-08-07 07:45 | P.PNIM ---
Subjective Interval history: Follow up on patient with AECOPD, wt loss, abd pain. Patient seen and examined. Patient only able to eat 2 crackers last night before becoming nauseous. She is NPO for upcoming EGD today. Physical Exam Vital signs: Last Vital Signs Temp 97.6 F 08/07/18 04:00 Pulse 60 08/07/18 04:00 Resp 18 08/07/18 04:00 BP 127/84 08/07/18 04:00 Pulse Ox 96 08/07/18 04:00 Intake & Output 08/05/18 08/06/18 08/07/18 08/08/18 06:59 06:59 06:59 06:59 Intake Total 2950 / 2950 1100 / 1100 340 / 340 Output Total 250 / 250 Balance 2700 / 2700 1100 / 1100 340 / 340 Narrative: GENERAL: Thin cachectic ill-appearing pleasant middle-aged female patient, no acute distress. Awake and alert. is at the bedside. SKIN: Warm and dry. No generalized rash. HEENT: Atraumatic. Normocephalic. Pupils equal and round. No scleral icterus. No injection or drainage. No nasal bleeding or discharge. Mucous membranes pink and moist. NECK: Trachea midline. CARDIOVASCULAR: Regular rate and rhythm. No obvious murmurs auscultated. RESPIRATORY: No accessory muscle use. Improved air movement. No wheezing noted on exam. GASTROINTESTINAL: Abdomen soft, nondistended. +BS. +periumbilical tenderness to palpation. MUSCULOSKELETAL: Extremities without clubbing, cyanosis, or edema. = NEUROLOGICAL: Awake and alert. No obvious cranial nerve deficits. Able to move all extremities spontaneously. Normal speech. PSYCHIATRIC: Appropriate mood and affect; insight and judgment normal. Results Labs CBC & Chem 7: 08/06/18 06:15 08/06/18 06:15 Labs: Microbiology 08/03/18 15:51 Blood - Peripheral Aerobic Blood Culture - Preliminary No growth in 3 days 08/03/18 15:51 Blood - Peripheral Anaerobic Blood Culture - Preliminary No growth in 3 days Imaging Imaging: Impressions Hepatobiliary Scan Nuclear Medicine 08/06/18 00:00 CONCLUSION: There is normal filling of the gallbladder which excludes cystic duct obstruction. Assessment and Plan Plan 53-year-old female with a PMH of COPD and h/o Dysphagia who presented to the ER w/ complaints of SOB in addition to severe weakness. COPD: w/ Acute moderate to severe exacerbation, improving Acute on chronic hypoxic respiratory failure: S/p Solu-Medrol and DuoNeb w/ some improvement. CXR/CTA Chest negative for acute PE, +severe emphysematous changes. Repeat CXR 1/2 shows mild interstitial changes in the right lung with trace pleural effusion probably early consolidation in the right base. Left lung is clear. -Pulmonary medicine following, appreciate assistance. Started on ceftriaxone and azithromycin, continue. Given Lasix IV 20 mg x1 dose. -Continue IV Solu-Medrol, started on taper by pulm -Continue on Symbicort -Continue on Mucinex -Continue on scheduled DuoNeb treatments -Continue on supplemental oxygen as needed - satting well on 2L. Patient will likely require oxygen at home upon discharge. -Continue to monitor respiratory status PNA repeat CXR concerning for pneumonia right lung base -Started on azithromycin. Ceftriaxone resumed. Repeat CXR ordered for tomorrow by pulm. -Continue with treatment as above FTT: reports unintentional 50lb weight loss in last 3mo, +decreased PO intake, feels "full", +abdominal distention/gas, h/o dysphagia s/p laryngoscopy by Dr. Zuñiga 07/25/17 which was negative for lesions. Advanced COPD likely contributing to patient's weight loss N/V, abdominal pain CXR/CTA Chest w/ no nodules/mass. Last PAP 2yrs ago reports normal. CT the abdomen/pelvis shows diffuse periportal edema, diffuse gallbladder wall thickening. HIDA scan neg -GI following, appreciate assistance. NPO for EGD today. -Nausea/vomiting resolved. Advance diet. Chest pain, atypical, resolved Elevated troponin Patient developed complaints of midsternal chest pain. Initial troponins were negative the last troponin was elevated 0.09. Suspect secondary to demand ischemia EKG unremarkable 2D echo shows ejection fraction 65-70%, no wall motion abnormalities noted -Repeat troponin level WNL -monitor Leukocytosis -Steroid reaction -Monitor clinically Suspected bacterial vaginosis Patient complains of malodorous brownish discharge -Treat with metronidazole 500 mg twice daily x7 Back pain: Suspect secondary to profound weight loss Imaging reveals mild degenerative changes otherwise negative -[place] prn. K thermia. Patient did not tolerate Lidoderm patch. -Continue with PT DVT Prophylaxis: Heparin Progress Note: Quality VTE Deep Vein Thrombosis/Pulmonary Embolism Present on Admission: No
[2018-08-07] MEDS: clonazePAM 0.5 MG Tablet PO PRN ×2 (09:17→21:12)
[2018-08-07] MEDS: guaiFENesin 600 MG ER Tablet PO SCH ×2 (09:41→21:12)
[2018-08-07] MEDS: metroNIDAZOLE 500 MG Tablet PO SCH ×2 (09:41→21:12)
[2018-08-07] MEDS: Heparin - SQ 10,000 UNITS/ML Vial SQ SCH ×2 (09:41→21:12)
[2018-08-07] MEDS: Azithromycin 250 MG Tablet PO SCH (09:41)
[2018-08-07] MEDS: Lidocaine 5% Patch T-DERMAL SCH ×2 (09:42→09:47)
[2018-08-07] MEDS: Senna/Docusate Sodium 8.6/50 MG Tablet PO SCH ×2 (09:42→21:13)
[2018-08-07] MEDS: Budesonide-Formoterol 160/4.5 MCG 6 GM Inhaler INH SCH ×2 (09:43→21:14)
--- NOTE | 2018-08-07 09:50 | P.PNPL ---
Subjective Interval history: Patient is on 2L oxygen lying in bed in NAD. Afebrile. For possible EGD today. Physical Exam Vital signs: Vital Signs 08/06/18 11:19 08/06/18 16:00 08/06/18 20:00 Temperature 98.7 F 97.7 F 98.9 F Pulse Rate 75 69 67 Respiratory Rate 20 12 18 Blood Pressure 149/80 H 130/80 131/81 Pulse Oximetry 95 95 94 L 08/07/18 00:00 08/07/18 04:00 08/07/18 08:00 Temperature 98.3 F 97.6 F 97.7 F Pulse Rate 60 60 74 Respiratory Rate 18 18 18 Blood Pressure 134/84 127/84 130/76 Pulse Oximetry 97 96 95 Intake & Output 08/06/18 08/07/18 08/07/18 18:59 06:59 18:59 Intake Total 100 / 100 240 / 240 Balance 100 / 100 240 / 240 Intake: IV 100 / 100 Rocephin Inj 1,000 MG In NS Inj 100 / 100 100 ML @ 200 mls/hr IV.SIG Q24H LILIANA Rx#:[id number] Oral 240 / 240 Other: # Voids 4 Date of Last Bowel Movement 08/04/18 - Constitutional no acute distress, thin - Routine HEENT Exam Head: Present: normocephalic, atraumatic Eye: Present: EOMI, PERRL, normal accommodation, conjunctivae pink ENT: Present: mucous membranes moist - Routine Neck Exam Present: supple, full ROM, trachea midline - Routine Respiratory Exam Present: CTA bilaterally - Routine Cardiovascular Exam Present: RRR, S1, S2 - Routine Abdominal Exam Present: soft, normoactive bowel sounds - Routine Extremities Exam Present: full ROM, pulses intact - Routine Skin Exam Present: intact, dry - Routine Neurological Exam Present: alert, oriented X3, CN II-XII intact Assessment and Plan - Plan 1. Respiratory insufficiency. 2. COPD exacerbation. 3. Tobacco abuse. 4. Urinary tract infection. 5. Failure to thrive. Plan Continue with oxygen and maintain sats >2%. Bronchodilators ( DuoNeb, Symbicort) Solu-Medrol 40 mg IV q. 12 BiPAP p.r.n. for respiratory distress. Check CXR 08/03 CTA chest showed no evidence of pulmonary embolism, COPD changes. CXR 1/2: Mild interstitial changes in the right lung with trace pleural effusion and probable early consolidation right base. Left lung clear Abx- Rocephin 1 gram IV daily, Azithromycin. Nasal washing negative for Influenza on 08/03 Follow up on PFT. Patient is at high risk for perioperative complications giving her likely mod- severe obstructive lung disease Assess for home oxygen with a 6-minute walk test prior to discharge. GI is following for dysphagia, for possible EGD today GI/DVT prophylaxis. on heparin subcu
--- NOTE | 2018-08-07 11:46 | GIPROC ---
[facility] [address] [facility]. [facility], [address] EGD PROCEDURE REPORT EXAM DATE: 08/07/2018 PATIENT NAME: Desirae Bolanos MR #: [id number] BIRTHDATE: 1965 ATTENDING: Katelyn Lopez MD ORDER #: [id number] REMOTE ENCODING OPERATIONS SUPERVISOR: Wilbert Aguirre Stienbarger, Terrie, and Haley Olea STATUS: inpatient INDICATIONS: The patient is a 53 yr old female here for an EGD due to epigastric abdominal pain and weight loss PROCEDURE PERFORMED: EGD w/ biopsy MEDICATIONS: Per Anesthesia and None. TOPICAL ANESTHETIC: Lidocaine [place] CONSENT: The patient understands the risks and benefits of the procedure and understands that these risks include, but are not limited to: sedation, allergic reaction, infection, perforation and/or bleeding. Alternative means of evaluation and treatment include, among others: physical exam, x-rays, and/or surgical intervention. The patient elects to proceed with this endoscopic procedure. medical equipment was checked for proper function. Hand hygiene and appropriate measures for infection prevention was taken. After the risks, benefits and alternatives of the procedure were thoroughly explained, Informed consent was verified, confirmed and timeout was successfully executed by the treatment team. The patient was anesthetized with topical anesthesia and the Pentax EG-[id number] endoscope was introduced through the mouth and advanced to the second portion of the duodenum. Retroflexion was performed and was normal The gastroscope was then slowly withdrawn and removed. ESOPHAGUS: There was LA Class B esophagitis noted. STOMACH: There was chronic moderate and ulcerative gastritis in the gastric antrum and gastric body. Multiple biopsies were performed using cold forceps. Sample sent for histology. DUODENUM: Mild duodenal inflammation was found in the duodenal bulb and 2nd part duodenum. ADVERSE EVENTS: There were no complications. IMPRESSIONS: 1. There was LA Class B esophagitis noted 2. There was chronic gastritis in the gastric antrum and gastric body; multiple biopsies were performed 3. Duodenal inflammation was found in the duodenal bulb and 2nd part duodenum 4. Retroflexion was performed and was normal RECOMMENDATIONS: 1. Await biopsy results. Biopsy results will not be ready for 7-10 days. If you don't hear from us in two weeks, call our office for biopsy results. 2. Continue PPI PATIENT CONDITION: stable DISPOSITION: Observation REPEAT EXAM: NONE Katelyn Lopez MD eSigned: Katelyn Lopez MD 08/07/2018 11:45 AM cc: PATIENT NAME: Desirae Bolanos MR#: [id number]
[2018-08-07] MEDS: MethylPREDNISolone Sod Succinate Inj 40 MG/ML Vial IV.PUSH SCH ×2 (12:19→23:11)
[2018-08-08] MEDS: clonazePAM 0.5 MG Tablet PO PRN ×2 (05:30→15:04)
--- NOTE | 2018-08-08 06:21 | XR ---
EXAM DATE: 08/08/2018 5:36 AM EST AGE/SEX: 53 years / Female INDICATIONS: COPD. CLINICAL DATA: This is the patient's subsequent encounter. Patient reports that signs and symptoms h ave been present for 4 - 6 days and indicates a pain score of 0/10. MEDICAL/SURGICAL HISTORY: . Throat cancer. section. Tubal ligation. COMPARISON: No prior exams available for comparison. FINDINGS: A single AP view of the chest demonstrates the lungs to be symmetrically hyperinflated without eviden ce of mass, infiltrate or effusion. The previously noted opacity at the right lung base blunting the costophrenic angle excluded. The cardiomediastinal contours are unremarkable. Osseous structures are intact. There are overlying electrocardiogram leads. CONCLUSION: 1. Interval improvement in right lung infiltrate and small right effusion. 2. Hyperinflation with no acute cardiopulmonary disease. Electronically signed by: Preston Padilla MD Board Certified Radiologist 08/08/2018 6:20 AM EST
[2018-08-08] MEDS: guaiFENesin 600 MG ER Tablet PO SCH (10:06)
[2018-08-08] MEDS: Senna/Docusate Sodium 8.6/50 MG Tablet PO SCH (10:07)
[2018-08-08] MEDS: metroNIDAZOLE 500 MG Tablet PO SCH (10:07)
[2018-08-08] MEDS: MethylPREDNISolone Sod Succinate Inj 40 MG/ML Vial IV.PUSH SCH (10:07)
[2018-08-08] MEDS: Azithromycin 250 MG Tablet PO SCH (10:07)
[2018-08-08] MEDS: Heparin - SQ 10,000 UNITS/ML Vial SQ SCH (11:17)
[2018-08-08] MEDS: Budesonide-Formoterol 160/4.5 MCG 6 GM Inhaler INH SCH (11:17)
--- NOTE | 2018-08-08 11:24 | P.PNGI ---
Subjective Interval history: Pt is resting in bed, likes to go home, has two animals at home, only neighbors check on them but no one lives at home. Pt was in tears during exam. She feels better today, able to eat half of her food, and had BM Physical Exam Vital signs: Vital Signs 08/07/18 11:45 08/07/18 12:00 08/07/18 14:00 Temperature 98 F 98.8 F 98.5 F Pulse Rate 73 72 83 Respiratory Rate 20 18 16 Blood Pressure 133/85 149/66 H 133/91 H Pulse Oximetry 100 98 92 L 08/07/18 19:30 08/07/18 20:00 08/07/18 23:42 Temperature 98.8 F Pulse Rate 91 H 97 H Respiratory Rate 20 18 Blood Pressure 116/75 Pulse Oximetry 98 92 L 95 08/08/18 00:00 08/08/18 04:00 08/08/18 04:15 Temperature 97.2 F L 98.2 F Pulse Rate 90 85 Respiratory Rate 20 17 17 Blood Pressure 105/71 110/73 Pulse Oximetry 94 L 95 08/08/18 08:00 08/08/18 08:13 Temperature 97.2 F L Pulse Rate 98 H 80 Respiratory Rate 17 16 Blood Pressure 95/58 L Pulse Oximetry 96 96 Intake & Output 08/07/18 08/08/18 08/08/18 18:59 06:59 18:59 Intake Total 300 / 300 480 / 480 Balance 300 / 300 480 / 480 Weight 37.195 kg 39.7 kg Intake: Oral 480 / 480 Anesthesia Amount 300 / 300 Other: # Voids 3 2 Date of Last Bowel Movement 08/07/18 # Bowel Movements 1 Weight On Admission 37.195 kg Narrative: GENERAL: Thin cachectic ill-appearing pleasant middle-aged female patient, no acute distress. Awake and alert. cachetic SKIN: Warm and dry. No generalized rash. CARDIOVASCULAR: Regular rate and rhythm. No obvious murmurs auscultated. RESPIRATORY: No accessory muscle use. Improved air movement. No wheezing noted on exam. GASTROINTESTINAL: Abdomen soft, nondistended. +BS. some tenderness MUSCULOSKELETAL: Extremities without clubbing, cyanosis, or edema. NEUROLOGICAL: Awake and alert. No obvious cranial nerve deficits. Normal speech. PSYCHIATRIC: Appropriate mood and affect; insight and judgment normal. Results - Labs CBC & Chem 7: 08/06/18 06:15 08/06/18 06:15 Microbiology 08/03/18 15:51 Blood - Peripheral Aerobic Blood Culture - Final No growth in 5 days 08/03/18 15:51 Blood - Peripheral Anaerobic Blood Culture - Final No growth in 5 days - Imaging Impressions Chest X-Ray 08/08/18 00:00 CONCLUSION: 1. Interval improvement in right lung infiltrate and small right effusion. 2. Hyperinflation with no acute cardiopulmonary disease. Assessment and Plan - Plan Assessment Dysphagia- EGD on 08/07/18 1. There was LA Class B esophagitis noted 2. There was chronic gastritis in the gastric antrum and gastric body; multiple biopsies were performed 3. Duodenal inflammation was found in the duodenal bulb and 2nd part duodenum 4. Retroflexion was performed and was normal seen by ENT for same at this hospital in July [address] of her neck done which showed small loculated air in the right tonsillar region, possibly a small tonsillar abscess without significant fluid accumulation identified. There is no airway obstructing lesions or adenopathy. She underwent direct laryngoscopy with esophagoscopy which showed no evidence of lesions involving the hypopharynx and endolarynx. 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 No signs of inflammation or infection in the base of the tongue, vallecula and piriform sinuses, endolarynx, hypopharynx or cervical esophagus. She states she was advised by the ENT to follow-up with Unintentional weight losspatient reports a 51 pound weight loss over the past 6 months. She attributes this to decreased appetite, early satiety and overall weakness. Patient with advanced COPD which is likely contributing to her symptoms, she states that she is unable to finish a meal without becoming progressively short of breath. CT abdomen and pelvis (08/05/18) Findings most consistent with diffuse periportal edema. Although nonspecific, differential considerations would include acute hepatitis versus congestive hepatopathy. Pronounced diffuse gallbladder wall thickening. Suspect this reflects severe hypoalbuminemia or congestion or liver disease. However, this significantly limits imaging evaluation for cholecystitis. Clinical correlation is recommended. Short interval development of trace left and small right pleural effusions. HIDA scan --> normal - Respiratory insufficiency/ COPD exacerbation. Plan MOJGAN Ok to dc home from GI standpoint Dc on protonix Avoid NSAIDs Fu with GI upon discharge Await bx This patient has been seen and examined by myself and Dr. Schofield and this note is written on her behalf
[2018-08-08 13:25] VITALS: BP 115/65; PULSE 89; RESP 17; TEMP 97.3; O2SAT 94
--- NOTE | 2018-08-08 13:53 | P.DS ---
DS: Providers Date of admission: 08/03/18 19:12 Primary care physician: UNKNOWN Consults: 08/04/18 10:24 Consult to Pulmonology Routine Consulting Provider: Donn Bliss Reason for Consultation: COPD exacerbation, rapid weight loss, homebound secondary to chronic dyspnea Notified:: Service Spoke with:: Abigail Date Notified:: 08/04/18 Time Notified:: 10:29 Ordering Provider: IZABEL 08/03/18 19:17 Consult to Gastroenterology Routine Consulting Provider: Katelyn South Reason for Consultation: dysphagia, ftt Notified:: Service Spoke with:: MG Date Notified:: 08/03/18 Time Notified:: 19:50 Ordering Provider: ROBERTA Brief History from admission: This is a 53-year-old female with a PMH of COPD and h/o Dysphagia who presented to the ER w/ complaints of SOB in addition to severe weakness. Notes approx 50lb weight loss in the last 3 months w/ significant weakness and decreased strength, decreased PO intake states "I feel full after a few bites". Per review of previous records, pt w/ dysphagia/ odynophagia for which she underwent direct laryngoscopy/esophagoscopy by Dr. Zuñiga 07/25/17 w/ no evidence of lesions, possible prior stricture. Has been doing well since that time until now. Denies fever, chills, cough or chest pain. Notes abdominal cramping/distention and "gas". On arrival, BP 117/73, HR 86, O2 sat 80% on RA, Afebrile. Hemoglobin 18.8. Chemistry essentially unremarkable. UA positive for UTI. CXR with COPD. CTA Chest severe emphysematous COPD, negative for PE. S/p DuoNeb and Solu-Medrol in ER w/ some improvement. DS: Summary 53-year-old female with a PMH of COPD and h/o Dysphagia who presented to the ER w/ complaints of SOB in addition to severe weakness. COPD: w/ Acute moderate to severe exacerbation, improving Acute on chronic hypoxic respiratory failure: S/p Solu-Medrol and DuoNeb w/ some improvement. CXR/CTA Chest negative for acute PE, +severe emphysematous changes. Repeat CXR 08/05 shows mild interstitial changes in the right lung with trace pleural effusion probably early consolidation in the right base. Left lung is clear. -Pulmonary medicine following, appreciate assistance. Started on ceftriaxone and azithromycin, continue. Given Lasix IV 20 mg x1 dose. -Continue IV Solu-Medrol, started on taper by pulm -Continue on Symbicort -Continue on Mucinex -Continue on scheduled DuoNeb treatments -Continue on supplemental oxygen as needed - satting well on 2L. Patient will likely require oxygen at home upon discharge. -Continue to monitor respiratory status PNA repeat CXR concerning for pneumonia right lung base -Started on azithromycin. Ceftriaxone resumed. Repeat CXR ordered for tomorrow by pulm. -upon discharge we will continue Levaquin for 4 more days. FTT: reports unintentional 50lb weight loss in last 3mo, +decreased PO intake, feels "full", +abdominal distention/gas, h/o dysphagia s/p laryngoscopy by Dr. Zuñiga 07/25/17 which was negative for lesions. Advanced COPD likely contributing to patient's weight loss N/V, abdominal pain CXR/CTA Chest w/ no nodules/mass. Last PAP 2yrs ago reports normal. CT the abdomen/pelvis shows diffuse periportal edema, diffuse gallbladder wall thickening. HIDA scan neg -GI following, appreciate assistance. NPO for EGD today. -Nausea/vomiting resolved. Advance diet. Chest pain, atypical, resolved Elevated troponin Patient developed complaints of midsternal chest pain. Initial troponins were negative the last troponin was elevated 0.09. Suspect secondary to demand ischemia EKG unremarkable 2D echo shows ejection fraction 65-70%, no wall motion abnormalities noted -Repeat troponin level WNL -monitor Suspected bacterial vaginosis Patient complains of malodorous brownish discharge -Treat with metronidazole 500 mg twice daily x7 Back pain: Suspect secondary to profound weight loss Imaging reveals mild degenerative changes otherwise negative -Fosston prn. K thermia. Patient did not tolerate Lidoderm patch. -Continue with PT DVT Prophylaxis: Heparin Overall, patient is doing well. She was treated for COPD Exacerbation/ Pneumonia. We arranged home O2 for her. Will discharge patient on Albuterol INH , Symbicort, prednisone for 5 days, Levaquin for 4 days. Time Spent with Patient Total time spent providing and/or coordinating discharge services: Less than 30 minutes Quality: VTE Deep Vein Thrombosis/Pulmonary Embolism Present on Admission: No Exam Narrative Exam Narrative: GENERAL: Alert, NAD. SKIN: Warm and dry. HEAD: Normocephalic. EYES: No scleral icterus. No injection or drainage. NECK: Supple, trachea midline. No JVD or lymphadenopathy. CARDIOVASCULAR: Regular rate and rhythm without murmurs, gallops, or rubs. RESPIRATORY: Moderate air entry, no appreciable wheezing. No accessory muscle use. GASTROINTESTINAL: Abdomen soft, non-tender, nondistended. MUSCULOSKELETAL: No cyanosis, or edema. BACK: Nontender without obvious deformity. No CVA tenderness. Results Procedures completed during hospitalization: EGD 08/07/2018 1. There was LA Class B esophagitis noted 2. There was chronic gastritis in the gastric antrum and gastric body; multiple biopsies were performed 3. Duodenal inflammation was found in the duodenal bulb and 2nd part duodenum 4. Retroflexion was performed and was normal Pending studies at discharge: Pending at discharge 08/07/18 13:08 Surgical [PTH] Routine Impressions ITS Impressions Chest CTA 08/03/18 15:38 CONCLUSION: 1. This study is negative for pulmonary embolism. 2. Severe emphysematous COPD 3. No evidence of acute airspace disease or suspicious nodular densities. Abdomen/Pelvis CT 08/05/18 00:00 CONCLUSION: 1. Findings most consistent with diffuse periportal edema. Although nonspecific , differential considerations would include acute hepatitis versus congestive hepatopathy. 2. Pronounced diffuse gallbladder wall thickening. Suspect this reflects severe hypoalbuminemia or congestion or liver disease. However, this significantly limits imaging evaluation for cholecystitis. Clinical correlation is recommended. 3. Short interval development of trace left and small right pleural effusions. Lumbar Spine X-Ray 08/05/18 00:00 CONCLUSION: Mild degenerative changes otherwise negative Thoracic Spine X-Ray 08/05/18 00:00 CONCLUSION: Negative. Endplates and disc spaces well-preserved. Hepatobiliary Scan Nuclear Medicine 08/06/18 00:00 CONCLUSION: There is normal filling of the gallbladder which excludes cystic duct obstruction. Chest X-Ray 08/08/18 00:00 CONCLUSION: 1. Interval improvement in right lung infiltrate and small right effusion. 2. Hyperinflation with no acute cardiopulmonary disease. Discharge Plan Discharge Disposition Patient Disposition: Discharge Home Discharge Condition Condition: Good Discharge Order Discharge Orders: Discharge Order (Routine); Ordered 08/08/18 Ordered By: Gaurang Pa Discharge Details Anticipated Discharge Date: 08/08/18 Physicians Team Primary Care Provider: UNKNOWN, Attending Provider: Gaurang Pa Other Providers: Katelyn South Alaa Rxs /Orders / Referrals /Forms Prescriptions: New prednisone 20 mg Tablet 20 mg PO BID Qty: 10 RF: 0 clonazepam [Klonopin] 0.5 mg Tablet 0.5 mg PO Q8HR PRN (Reason: Anxiety) Qty: 9 RF: 0 metronidazole 500 mg Tablet 500 mg PO BID Qty: 10 RF: 0 pantoprazole 40 mg Tablet,Delayed Release (Dr/Ec) 40 mg PO BID Qty: 60 RF: 5 budesonide-formoterol [Symbicort] 160-4.5 mcg/actuation Hfa Aerosol Inhaler 2 puff Inhalation BID 30 Days Qty: 10.2 RF: 5 levofloxacin [Levaquin] 750 mg tablet 750 mg PO DAILY 4 Days Qty: 4 RF: 0 albuterol sulfate 90 mcg/actuation HFA aerosol inhaler 1 inh INHALATION Q6H PRN (Reason: shortness of breath or wheezing) Qty: 18 RF : 5 hydrocodone-acetaminophen [Fosston] 7.5-325 mg tablet 1 tab PO Q6H PRN (Reason: Pain 5-10) Qty: 12 RF: 0 Ambulatory Orders / Order Sets / DME: Oxygen Tank (2-5 liter) (Routine) Location: Determined by Patient Ordered By: Amee Qureshi Referrals: UNKNOWN, [Primary Care Provider] - See Instructions Discharge Instructions Patient Printed Instructions: Prednisone (By mouth), Metronidazole (By mouth), Levofloxacin (By mouth), Using Oxygen at Home (DC), Using Oxygen at Home (GEN), COPD (Chronic Obstructive Pulmonary Disease) (DC), Chronic Lung Disease and Infection Prevention (DC), Upper Endoscopy (DC) Additional Instructions: FOLLOW UP WITH GASTROENTEROLOGY (DR MARIVEL SOUTH) Status ED Status: Left Department
[2018-08-08] MEDS: Lidocaine 5% Patch T-DERMAL SCH (14:06)
[2018-08-08] MEDS ORDERED: predniSONE 20 MG Tablet PO SCH (21:00)
== END 2018-08-08 16:10 | disposition home or self-care (01) | DRG 193 ==
LOC: NEPE 15:23 → NEDA 19:17 → INTOOBSV 19:17 → OBSVTOIN 19:17 → NEDA 22:45 → NEPGCP 23:53 → N04 08-07 21:51 → UNDODISIN 08-08 14:58
PROVIDERS: ADMIT Hospitalist; ATTEND Hospitalist
PROC: PANENDO (2018-08-07 10:52)
DX: N76.0 Acute vaginitis; E86.0 Dehydration; Z80.0 Family history of malignant neoplasm of digestive organs; K25.7 Chronic gastric ulcer without hemorrhage or perforation; K82.8 Other specified diseases of gallbladder; K29.80 Duodenitis without bleeding; J96.21 Acute and chronic respiratory failure with hypoxia; R62.7 Adult failure to thrive; J43.9 Emphysema, unspecified; R68.81 Early satiety; J18.9 Pneumonia, unspecified organism; Z80.1 Family history of malignant neoplasm of trachea, bronchus and lung; K29.50 Unspecified chronic gastritis without bleeding; R13.10 Dysphagia, unspecified; E46 Unspecified protein-calorie malnutrition; F12.10 Cannabis abuse, uncomplicated; I24.8 Other forms of acute ischemic heart disease; R82.71 Bacteriuria; K20.9 Esophagitis, unspecified; Z68.1 Body mass index [BMI] 19.9 or less, adult; Z87.891 Personal history of nicotine dependence
CPT/HCPCS: 71010; 71045; 71275; 72020; 72100; 74177; 78226; 80053; 80074; 80307; 81001; 82103; 82105; 82150; 82306; 82378; 82550; 83520; 83690; 83880; 84484; 85025; 85610; 85730; 86301; 87040; 87086; 87275; 87276; 87804; 88305; 88312; 90774; 90784; 93005; 93306; 94060; 94618; 94620; 94640; 94664; 94665; 96374; 97162; 99291; A9513; A9537; C1097; C8952; C9113; J0696; J1644; J1940; J2270; J2405; J2920; J2930; J7030; Q9967